=== PATIENT | female | born 1955 | race Caucasian/White ===

== ENCOUNTER 2018-10-14 12:20 | Inpatient (IN) | payer SELFPAY ==
[~2018-10-14] VITALS: Ht 152.4 cm; Wt 57.6 kg
[2018-10-14 12:41] LABS: BASOPHILS # (AUTO) 0.1 /CMM (0.0-0.2); BASOPHILS % (AUTO) 1.3 % (0.0-2.0); EOSINOPHILS % (AUTO) 1.3 % (0.0-6.0); HEMATOCRIT 44 % (33-45); HEMOGLOBIN 15.1 g/dL (11.5-14.8); LYMPHOCYTES # (AUTO) 1.6 /CMM (0.8-4.8); LYMPHOCYTES % (AUTO) 33.9 % (20.0-44.0); MEAN CORPUSCULAR HGB CONC 35 g/dl (31.0-36.0); MEAN CORPUSCULAR VOLUME 93 fL (82-100); MONOCYTES # (AUTO) 0.3 /CMM (0.1-1.30); MONOCYTES % (AUTO) 5.4 % (2.0-12.0); NEUTROPHILS # (AUTO) 2.7 /CMM (1.8-8.9); NEUTROPHILS % (AUTO) 58.1 % (43.0-81.0); PLATELET COUNT (AUTO) 192 /CMM (150-450); WHITE BLOOD COUNT (AUTO) 4.6 K/uL (4.3-11.0)
[2018-10-14 12:54] LABS: ALANINE AMINOTRANSFERASE 33 U/L (12-78); ALBUMIN 3.6 g/dL (3.4-5.0); ALKALINE PHOSPHATASE 135 U/L (46-116); ASPARTATE AMINOTRANSFERASE 21 U/L (15-37); BILIRUBIN,DIRECT 0.1 mg/dL (0.0-0.2); BILIRUBIN,TOTAL 0.6 mg/dL (0.2-1.0); CALCIUM, SERUM 9.6 mg/dL (8.5-10.1); CARBON DIOXIDE 32 mmol/L (21-32); CHLORIDE 99 mmol/L (98-107); SODIUM SERUM 136 mmol/L (136-145); TOTAL PROTEIN, SERUM 7.8 g/dL (6.4-8.2); UREA NITROGEN, BLOOD 13 mg/dL (7-18)
[2018-10-14 12:56] LABS: GLUCOSE 434 mg/dL (74-106)
[2018-10-14] MEDS ORDERED: IV NS 0.9% 1,000 ML BAG IV ONE (13:30)
[2018-10-14] MEDS ORDERED: ASPIRIN 325 MG TABLET PO ONE (13:30)
[2018-10-14] MEDS ORDERED: ASPIRIN 325 MG TABLET ONE (13:37)
[2018-10-14] MEDS ORDERED: INSULIN REGULAR, HUMAN 100 UNIT/ML 10 ML VIAL SQ ONE (14:30)
[2018-10-14 14:39] LABS: APPEARANCE,URINE Cloudy (CLEAR); BILIRUBIN,URINE Negative (NEGATIVE); BLOOD, URINE Trace-lysed Ery/uL (NEGATIVE); COLOR,URINE Yellow (YELLOW); KETONES,URINE Trace (NEGATIVE); LEUKOCYTE ESTERASE ,URINE Small (NEGATIVE); NITRITE, URINE Negative (NEGATIVE); PROTEIN,URINE 100 mg/dl (NEGATIVE); UGLUCOSE 500 MG/DL mg/dL (NEGATIVE); UROBILINOGEN,URINE 0.2 EU/dL (0.2)
[2018-10-14] MEDS ORDERED: INSULIN REGULAR, HUMAN 100 UNIT/ML 10 ML VIAL ONE (14:47)
[2018-10-14 14:53] LABS: BACTERIA,URINE Many /HPF (None Seen); RBC,URINE 0-2 /HPF (0-2); SQUAMOUS EPITHELIAL CELL,UR Moderate /HPF (None Seen)
[2018-10-14] MEDS ORDERED: DEXTROSE 50%-WATER 50 ML DISP.SYRIN IV PRN (15:00)
[2018-10-14 16:00] VITALS: BP 135/106
[2018-10-14 17:00] VITALS: BP 168/83
[2018-10-14] MEDS ORDERED: BLOOD SUGAR DIAGNOSTIC 1 EACH STRIP IN SCH ×2 (17:30)
[2018-10-14] MEDS ORDERED: METF-440 PO (17:39)
[2018-10-14] MEDS ORDERED: LOSA100T31 PO (17:39)
[2018-10-14] MEDS ORDERED: ASPI-1169 PO (17:39)
[2018-10-14] MEDS: BLOOD SUGAR DIAGNOSTIC 1 EACH STRIP IN SCH ×2 (17:55→21:16)
[2018-10-14] MEDS: INSULIN REGULAR, HUMAN 100 UNIT/ML 3 ML VIAL SQ PRN ×2 (17:58→21:17)
[2018-10-14] MEDS: hydrALAZINE HCL 25 MG TABLET PO PRN (18:00)
[2018-10-14 20:00] VITALS: BP 116/64
[2018-10-14] MEDS: ATORVASTATIN 40 MG TABLET PO SCH (21:08)
[2018-10-15] VITALS (7 sets, daily range): BP systolic 92–167; BP diastolic 40–91
[2018-10-15 07:53] LABS: BASOPHILS % (AUTO) 0.6 % (0.0-2.0); EOSINOPHILS % (AUTO) 1.5 % (0.0-6.0); HEMATOCRIT 38 % (33-45); HEMOGLOBIN 13.2 g/dL (11.5-14.8); LYMPHOCYTES # (AUTO) 2.4 /CMM (0.8-4.8); LYMPHOCYTES % (AUTO) 43.6 % (20.0-44.0); MEAN CORPUSCULAR HGB CONC 35 g/dl (31.0-36.0); MEAN CORPUSCULAR VOLUME 92 fL (82-100); MONOCYTES # (AUTO) 0.3 /CMM (0.1-1.30); MONOCYTES % (AUTO) 6.2 % (2.0-12.0); NEUTROPHILS # (AUTO) 2.7 /CMM (1.8-8.9); NEUTROPHILS % (AUTO) 48.1 % (43.0-81.0); PLATELET COUNT (AUTO) 160 /CMM (150-450); RED BLOOD CELL COUNT(AUTO) 4.14 MIL/uL (4.0-5.2); WHITE BLOOD COUNT (AUTO) 5.5 K/uL (4.3-11.0)
[2018-10-15 07:56] LABS: CALCIUM, SERUM 8.8 mg/dL (8.5-10.1); POTASSIUM 4.2 mmol/L (3.5-5.1)
[2018-10-15] MEDS: hydrALAZINE HCL 25 MG TABLET PO PRN (08:07)
[2018-10-15] MEDS: BLOOD SUGAR DIAGNOSTIC 1 EACH STRIP IN SCH ×4 (08:13→21:41)
[2018-10-15] MEDS ORDERED: ACETAMINOPHEN 325 MG TABLET PO PRN (09:00)
[2018-10-15] MEDS: ASPIRIN EC 81 MG TABLET.DR PO SCH (09:24)
[2018-10-15] MEDS: INSULIN REGULAR, HUMAN 100 UNIT/ML 3 ML VIAL SQ PRN ×4 (09:26→21:45)
[2018-10-15] MEDS: glipiZIDE 5 MG TABLET PO SCH ×2 (12:50→18:16)
[2018-10-15] MEDS: LOSARTAN POTASSIUM 50 MG TABLET PO SCH (15:45)
[2018-10-15] MEDS: FLUCONAZOLE IN NS 100 MG in PREMIX 1 EA IV SCH ×2 (15:50)
[2018-10-15] MEDS: METFORMIN 500 MG TABLET PO SCH (17:00)
[2018-10-15] MEDS: ATORVASTATIN 40 MG TABLET PO SCH (21:41)
[2018-10-16] VITALS: BP 178/89
[2018-10-16 04:00] VITALS: BP 138/73
[2018-10-16 05:30] LABS: BASOPHILS % (AUTO) 0.6 % (0.0-2.0); EOSINOPHILS % (AUTO) 1.5 % (0.0-6.0); HEMATOCRIT 34 % (33-45); HEMOGLOBIN 11.9 g/dL (11.5-14.8); LYMPHOCYTES # (AUTO) 2.4 /CMM (0.8-4.8); LYMPHOCYTES % (AUTO) 36.7 % (20.0-44.0); MEAN CORPUSCULAR HGB CONC 35 g/dl (31.0-36.0); MEAN CORPUSCULAR VOLUME 92 fL (82-100); MONOCYTES # (AUTO) 0.3 /CMM (0.1-1.30); MONOCYTES % (AUTO) 5.3 % (2.0-12.0); NEUTROPHILS # (AUTO) 3.6 /CMM (1.8-8.9); NEUTROPHILS % (AUTO) 55.9 % (43.0-81.0); PLATELET COUNT (AUTO) 150 /CMM (150-450); RED BLOOD CELL COUNT(AUTO) 3.71 MIL/uL (4.0-5.2); WHITE BLOOD COUNT (AUTO) 6.4 K/uL (4.3-11.0)
[2018-10-16 05:41] LABS: CALCIUM, SERUM 8.8 mg/dL (8.5-10.1); CREATININE 0.9 mg/dL (0.6-1.3); MAGNESIUM 1.8 mg/dL (1.8-2.4); PHOSPHORUS 3.6 mg/dL (2.5-4.9); POTASSIUM 3.8 mmol/L (3.5-5.1)
[2018-10-16] MEDS: BLOOD SUGAR DIAGNOSTIC 1 EACH STRIP IN SCH ×4 (07:37→21:40)
[2018-10-16] MEDS: glipiZIDE 5 MG TABLET PO SCH ×2 (07:38→16:15)
[2018-10-16 08:00] VITALS: BP 146/99
[2018-10-16] MEDS: LOSARTAN POTASSIUM 50 MG TABLET PO SCH (08:30)
[2018-10-16] MEDS: METFORMIN 500 MG TABLET PO SCH ×2 (08:30→16:15)
[2018-10-16] MEDS: ASPIRIN EC 81 MG TABLET.DR PO SCH (08:30)
[2018-10-16] MEDS: INSULIN REGULAR, HUMAN 100 UNIT/ML 3 ML VIAL SQ PRN ×4 (08:32→21:40)
[2018-10-16 12:00] VITALS: BP 132/68
[2018-10-16] MEDS: FLUCONAZOLE IN NS 100 MG in PREMIX 1 EA IV SCH ×2 (13:10)
[2018-10-16 16:00] VITALS: BP 136/74
[2018-10-16 20:00] VITALS: BP 142/72
[2018-10-16] MEDS: ATORVASTATIN 40 MG TABLET PO SCH (21:44)
[2018-10-17 04:00] VITALS: BP 141/76
[2018-10-17 08:00] VITALS: BP 165/91
[2018-10-17] MEDS: METFORMIN 500 MG TABLET PO SCH ×2 (08:50→17:21)
[2018-10-17] MEDS: glipiZIDE 5 MG TABLET PO SCH ×2 (08:50→15:39)
[2018-10-17] MEDS: ASPIRIN EC 81 MG TABLET.DR PO SCH (08:50)
[2018-10-17] MEDS: LOSARTAN POTASSIUM 50 MG TABLET PO SCH (08:51)
[2018-10-17] MEDS: INSULIN REGULAR, HUMAN 100 UNIT/ML 3 ML VIAL SQ PRN ×2 (08:53→12:42)
[2018-10-17] MEDS: BLOOD SUGAR DIAGNOSTIC 1 EACH STRIP IN SCH ×2 (08:58→12:42)
[2018-10-17] MEDS ORDERED: CLOP75TA15 PO (12:55)
[2018-10-17] MEDS ORDERED: CLOPIDOGREL BISULFATE 75 MG TABLET PO SCH (13:30)
[2018-10-17 15:51] VITALS: BP 124/72
== END 2018-10-17 17:57 | disposition home or self-care (01) | DRG 65 ==
LOC: ER 12:27 → TELE1 14:11 → MEDSG1 10-15 15:27 → TELE1 10-16 02:38 → MEDSG1 10-16 12:11
PROVIDERS: ADMIT Student in an Organized Health Care Education/Training Program; ATTEND Internal Medicine
DX: I63.9 Cerebral infarction, unspecified (principal); I50.32 Chronic diastolic (congestive) heart failure; F17.210 Nicotine dependence, cigarettes, uncomplicated; E11.65 Type 2 diabetes mellitus with hyperglycemia; L80 Vitiligo; R29.810 Facial weakness; F17.200 Nicotine dependence, unspecified, uncomplicated; Z86.73 Personal history of transient ischemic attack (TIA), and cerebral infarction without residual deficits; Z83.3 Family history of diabetes mellitus; E78.5 Hyperlipidemia, unspecified; I11.0 Hypertensive heart disease with heart failure; I67.2 Cerebral atherosclerosis
CPT/HCPCS: 36415; 36569; 70450-TC; 70496-TC; 70498-TC; 70551-TC; 71045-TC; 80048-TC; 80061-TC; 80076-TC; 80305; 81000-TC; 82945-TC; 82962-TC; 83735-TC; 83880; 84100-TC; 84443-TC; 84484-TC; 85025-TC; 85610-TC; 85652-TC; 85730-TC; 87040-TC; 87081-TC; 87086-TC; 92611-TC; 93307-TC; 93880-TC; A4216; G0378; J1450; J1815; J7030; J7050

== ENCOUNTER 2021-05-12 12:09 | Inpatient (IN) | payer MEDICAID, MEDICARE ==
[~2021-05-12] VITALS: Ht 152.4 cm; Wt 54.4 kg
[~2021-05-12 12:09] MED LIST: ASPI-1169 PO; CLOP75TA15 PO; LOSA100T31 PO; METF-440 PO
[2021-05-12 12:55] LABS: BASOPHILS % (AUTO) 0.4 % (0.0-2.0); HEMATOCRIT 34 % (33-45); HEMOGLOBIN 11.7 g/dL (11.5-14.8); LYMPHOCYTES % (AUTO) 11.5 % (20.0-44.0); MEAN CORPUSCULAR HGB CONC 34 g/dl (31.0-36.0); MEAN CORPUSCULAR VOLUME 91 fL (82-100); MONOCYTES # (AUTO) 0.5 K/uL (0.1-1.30); MONOCYTES % (AUTO) 5.4 % (2.0-12.0); NEUTROPHILS # (AUTO) 7.2 K/uL (1.8-8.9); NEUTROPHILS % (AUTO) 82.7 % (43.0-81.0); PLATELET COUNT (AUTO) 167 K/uL (150-450); RED BLOOD CELL COUNT(AUTO) 3.73 MIL/uL (4.0-5.2); WHITE BLOOD COUNT (AUTO) 8.7 K/uL (4.3-11.0)
--- NOTE | 2021-05-12 13:00 | NUR ---
MOVE SHEET SUBMITTED
[2021-05-12 13:14] LABS: CALCIUM, SERUM 9.4 mg/dL (8.5-10.1); CREATININE 1.2 mg/dL (0.6-1.3); POTASSIUM 4.3 mmol/L (3.5-5.1)
--- NOTE | 2021-05-12 13:15 | NUR ---
[facility] CALLED REROLLER HAND PAGED.
[2021-05-12] MEDS ORDERED: LEVE500T20 PO (13:22)
[2021-05-12] MEDS ORDERED: ACET325T53 PO (13:22)
[2021-05-12] MEDS ORDERED: ASPI-1420 PO (13:22)
[2021-05-12] MEDS ORDERED: INSU100V7 SQ (13:22)
--- NOTE | 2021-05-12 13:48 | NUR ---
SHARIFA PAGED. JUNG
[2021-05-12] MEDS ORDERED: ACETAMINOPHEN 325 MG TABLET PO PRN ×2 (14:00)
[2021-05-12] MEDS ORDERED: MAGNESIUM HYDROXIDE 30 ML UDC PO PRN (14:00)
[2021-05-12] MEDS ORDERED: ONDANSETRON HCL/PF 4 MG/2 ML VIAL IVP PRN (14:00)
[2021-05-12] MEDS ORDERED: Z GUARD REMEDY 2 OZ OINT TP PRN (14:00)
[2021-05-12] MEDS ORDERED: MAG HYDROX/AL HYDROX/SIMETH 30 ML UDC PO PRN (14:00)
[2021-05-12] MEDS ORDERED: DEXTROSE 50%-WATER 50 ML DISP.SYRIN IV PRN (14:00)
[2021-05-12] MEDS ORDERED: ZOLPIDEM TARTRATE 5 MG TABLET PO PRN (14:00)
[2021-05-12] MEDS ORDERED: MORPHINE SULFATE INJ 2 MG/ML DISP.SYRIN IV PRN (14:00)
--- NOTE | 2021-05-12 14:11 | NUR ---
room 310-2
--- NOTE | 2021-05-12 14:40 | NUR ---
covid antigen swab is taken
--- NOTE | 2021-05-12 15:25 | NUR ---
patient will transfer to the [address] room 310 bed 2, report given SOL Quezada, waiting covid antigen result.
--- NOTE | 2021-05-12 16:35 | NUR ---
Patient arrived via stretcher from ER at 16:34 pm. Patient AO X 4, able to make needs known, can follow simple commands, [place] Islander and Turkmen speaking. No apparent distress noted, breathing even and unlabored. Admitting hospitalist made aware of the patient's arrival. Patient admitting diagnosis femur fracture. Patient's vital signs within normal limits, no c/o pain or discomfort at this time, offered pain mediocation and she said not right now and nell will ask for it. Skin intact, warm to touch, no pallor or cyanosis noted, noted to have light yellow discoloration in the left hip area, no swelling, no open area, also have small sized scabs on her bilateral ankle area, also have dry scabs on left lower leg, photos taken and filed in the chart. Patient oriented with use of call lights, use of bed control, use of telephone and tv control, also introduces BUILDING CONSTRUCTION ESTIMATOR and RN assigned for today, verbalized understanding and gratitude. All belongings double checked with the ones written in the inventory list. All needs attended, kept clean and dry, call light left within reach, safety precautions in place, brakes locked, side rails up X 2, will endorse to next shift for continuity of care.
--- NOTE | 2021-05-12 17:09 | NUR ---
PETROL TANKER DRIVER/MED RECON PATIENT UNABLE TO PROVIDE COMPLETE HOME MEDICATION PROFILE. CALLED [facility] (DAUGHTER) PER PATIENT REQUEST. DAUGHTER WILL CALL TO PROVIDE MEDICATION LIST LATER.
[2021-05-12] MEDS ORDERED: FAMO20TA8 PO (17:17)
[2021-05-12] MEDS ORDERED: AMLO-212 PO (17:17)
[2021-05-12] MEDS ORDERED: ATOR20TA PO (17:17)
[2021-05-12] MEDS: BLOOD SUGAR DIAGNOSTIC 1 EACH STRIP VI SCH ×2 (17:33→21:40)
[2021-05-12] MEDS: INSULIN REGULAR, HUMAN 100 UNIT/ML 3 ML VIAL SQ PRN (17:33)
--- NOTE | 2021-05-12 19:00 | NUR ---
Received in bed alert and orientated X3 when asked if she had pain (maris) persian she stated No and waved her hand to indicate no Right and Left PPP angle feet warm TV turned on for her and call light within reach bed alarm on
--- NOTE | 2021-05-12 19:44 | NUR ---
RN CLOSING NOTES Patient lying in bed, AO X 4, able to make needs known, can follow commands, able to make needs known, respirations even and unlabored, no SOB, denies any pain or discomfort, no apparent distress noted. No hypo/hyperglycemia noted during shift. kept clean and dry, all needs attended, call light left within reach, safety precautions in place, brakes locked, side rails up X 2, will endorse to next shift for continuity of care.
[2021-05-12 20:00] VITALS: BP 153/63
[2021-05-12] MEDS: LEVETIRACETAM (250 MG) 250 MG TABLET PO SCH (20:21)
[2021-05-12] MEDS: *INSULIN REGULAR(HUMULIN R)HUM 100 UNIT/ML VIAL SQ PRN (21:53)
--- NOTE | 2021-05-13 05:38 | NUR ---
CLOSING NOTES: In bed arouses easily when name spoken midline left upper arm attemp to draw AM labs unsuccessfully, flushes easily lab made aware medicated with tylenol X1 for dicomfort denies pain until we turn and reposition her
[2021-05-13] MEDS: BLOOD SUGAR DIAGNOSTIC 1 EACH STRIP VI SCH ×4 (06:13→21:23)
[2021-05-13] MEDS: INSULIN REGULAR, HUMAN 100 UNIT/ML 3 ML VIAL SQ PRN ×3 (06:20→17:33)
[2021-05-13 07:12] LABS: BASOPHILS % (AUTO) 0.5 % (0.0-2.0); EOSINOPHILS % (AUTO) 0.2 % (0.0-6.0); HEMATOCRIT 33 % (33-45); HEMOGLOBIN 11.5 g/dL (11.5-14.8); LYMPHOCYTES # (AUTO) 1.4 K/uL (0.8-4.8); LYMPHOCYTES % (AUTO) 15.4 % (20.0-44.0); MEAN CORPUSCULAR HGB CONC 35 g/dl (31.0-36.0); MEAN CORPUSCULAR VOLUME 91 fL (82-100); MONOCYTES # (AUTO) 0.7 K/uL (0.1-1.30); MONOCYTES % (AUTO) 7.4 % (2.0-12.0); NEUTROPHILS # (AUTO) 7.2 K/uL (1.8-8.9); NEUTROPHILS % (AUTO) 76.5 % (43.0-81.0); PLATELET COUNT (AUTO) 154 K/uL (150-450); RED BLOOD CELL COUNT(AUTO) 3.63 MIL/uL (4.0-5.2); WHITE BLOOD COUNT (AUTO) 9.4 K/uL (4.3-11.0)
--- NOTE | 2021-05-13 07:31 | NUR ---
RN OPENING NOTES- PT IN BED ASLEEP, EASILY AWAKENED, ORIENTED TO PERSON PLACE, GERMAN SPEAKING THOUGH UNDERSTANDS [place], LEFT FEMUR FX. AWAITING ORTHO CONSULT, DENIES PAIN AT PRESENT. NO ACUTE DISTRESS. CALL LIGHT IN REACH VS STABLE. ASSIST AND MONITOR
[2021-05-13 07:32] LABS: CREATININE 1.5 mg/dL (0.6-1.3); MAGNESIUM 2.2 mg/dL (1.8-2.4); PHOSPHORUS 3.1 mg/dL (2.5-4.9); POTASSIUM 4.4 mmol/L (3.5-5.1)
[2021-05-13 08:00] VITALS: BP 142/67
[2021-05-13] MEDS: LEVETIRACETAM (250 MG) 250 MG TABLET PO SCH ×2 (08:42→21:18)
[2021-05-13] MEDS: LOSARTAN POTASSIUM 50 MG TABLET PO SCH (08:43)
[2021-05-13 16:00] VITALS: BP 148/71
--- NOTE | 2021-05-13 18:30 | NUR ---
RN NOTE- BUN 38. NS AT 100/HR ORDERED THROUGH MIDLINE NILA.
--- NOTE | 2021-05-13 18:31 | NUR ---
RN CLOSING NOTE- ORTHO CONSULT TO BE COMPLETED TOMORROW. CARDIAC CONSULT AND ECHO COMPLETED TODAY. PT CLEARED FOR ORTHO SURGERY. VS STABLE, PO INTAKE GOOD, ALERT ORIENTED. SIDE RAILS UP, CALL LIGHT IN REACH BED LOCKED. ASSIST AND MONITOR
--- NOTE | 2021-05-13 19:00 | NUR ---
Received in bed alertAND ORIENTATED SPEAKING GREEK C/O PAIN LEFT HIP sp FALL @ hOME SCHEDULED FOR SURG TOMORROW
[2021-05-13 20:00] VITALS: BP 148/65
[2021-05-13 20:07] VITALS: BP 148/65
[2021-05-13] MEDS: ATORVASTATIN 10 MG TABLET PO SCH (21:18)
[2021-05-13] MEDS: *INSULIN REGULAR(HUMULIN R)HUM 100 UNIT/ML VIAL SQ PRN (21:30)
--- NOTE | 2021-05-13 23:28 | NUR ---
npo STATUS STARTED FOR SCHEDULED am 11 SURGERY
[2021-05-14 05:05] LABS: BILIRUBIN,URINE NEGATIVE (NEGATIVE); COLOR,URINE YELLOW (YELLOW); LEUKOCYTE ESTERASE ,URINE SMALL (NEGATIVE); NITRITE, URINE NEGATIVE (NEGATIVE); PH,URINE 5.5 (5.0-8.0); PROTEIN,URINE 30 mg/dl (NEGATIVE); UGLUCOSE >=1000 mg/dL (NEGATIVE); UROBILINOGEN,URINE 0.2 EU/dL (0.2)
[2021-05-14 05:16] LABS: CREATININE, URINE 59.6 MG/DL (30.0-125.0)
[2021-05-14 05:20] LABS: BACTERIA,URINE Many /HPF (None Seen); SQUAMOUS EPITHELIAL CELL,UR Few /HPF (None Seen); WBC,URINE 21-50 /HPF (0-3); YEAST,URINE Few /HPF (None Seen)
[2021-05-14] MEDS: IV NS 0.9% 1,000 ML IV PRN (05:48)
--- NOTE | 2021-05-14 05:57 | NUR ---
NPO FOR SCHEDULED 11 AM SURGERY BY MD CUETO SURGICAL CHECK LIST STARTED EKG ORDERED ND DONE ALREADY UA ORDERED AND RESULT PENDING CXR ORDERED FOR EARLY THIS AM PATIENT IS AWAKE AND SMILING MD KIRBY THE ORTHO SURGEON MY UNDERSTANDING WILL BE IN THIS am TO EXPLAIN TO THE PATIENT WHAT IS TO BE DONE CONSENT NO SIGNED YET
[2021-05-14 06:35] LABS: BASOPHILS % (AUTO) 0.3 % (0.0-2.0); HEMATOCRIT 31 % (33-45); HEMOGLOBIN 10.9 g/dL (11.5-14.8); MEAN CORPUSCULAR HGB CONC 35 g/dl (31.0-36.0); MEAN CORPUSCULAR VOLUME 91 fL (82-100); MONOCYTES % (AUTO) 8.3 % (2.0-12.0); NEUTROPHILS % (AUTO) 74.4 % (43.0-81.0); PLATELET COUNT (AUTO) 146 K/uL (150-450); WHITE BLOOD COUNT (AUTO) 6.9 K/uL (4.3-11.0)
[2021-05-14 06:36] LABS: LYMPHOCYTES # (AUTO) 1.2 K/uL (0.8-4.8); MONOCYTES # (AUTO) 0.6 K/uL (0.1-1.30); NEUTROPHILS # (AUTO) 5.1 K/uL (1.8-8.9)
[2021-05-14 06:49] LABS: CALCIUM, SERUM 8.6 mg/dL (8.5-10.1); POTASSIUM 4.1 mmol/L (3.5-5.1)
[2021-05-14] MEDS: BLOOD SUGAR DIAGNOSTIC 1 EACH STRIP VI SCH ×5 (06:53→22:30)
--- NOTE | 2021-05-14 07:26 | NUR ---
RN OPENING NOTE- PT IN BED, AWAKE AND ORIENTED TO PERSON PLACE, SLOVAK SPEAKING THOUGH UNDERSTANDS GREEK, LEFT FEMUR FX. AWAITING SURGICAL PROCEDURE THIS MORNING, DENIES PAIN AT PRESENT. CXR BEING DONE NOW, ALL PREPARATIONS COMPLETED, CONSENTS DONE, NO ACUTE DISTRESS. CALL LIGHT IN REACH VS STABLE. ASSIST AND MONITOR
[2021-05-14] MEDS: LOSARTAN POTASSIUM 50 MG TABLET PO SCH (08:38)
[2021-05-14] MEDS: AMLODIPINE BESYLATE 5 MG TABLET PO SCH (08:39)
[2021-05-14] MEDS: LEVETIRACETAM (250 MG) 250 MG TABLET PO SCH ×2 (08:39→21:22)
[2021-05-14] MEDS: FAMOTIDINE (20 MG) 20 MG TABLET PO SCH (08:39)
[2021-05-14] MEDS ORDERED: ANESTHESIA TRAY IN PYXIS 1 EA TRAY MC ONE (09:17)
[2021-05-14] MEDS ORDERED: BUPIVACAINE 0.5 % PF 150 MG/30 ML VIAL ONE (09:18)
[2021-05-14] MEDS ORDERED: HYDROMORPHONE INJ 2 MG/ML DISP.SYRIN ONE (10:50)
[2021-05-14] MEDS ORDERED: CEFAZOLIN 1 GM VIAL IM SCH (11:00)
[2021-05-14] MEDS ORDERED: LEVOFLOXACIN 500 MG /D5W 100ML 100 ML IV ONE (11:16)
[2021-05-14] MEDS ORDERED: ROCURONIUM BROMIDE 50 MG/5 ML ONE (11:17)
[2021-05-14] MEDS ORDERED: BUPIVACAINE 0.25% 75 MG/30 ML VIAL ONE (11:51)
[2021-05-14] MEDS ORDERED: LIDOCAINE 0.5%-EPI 1:200,000 50 ML VIAL ONE (11:54)
[2021-05-14] MEDS ORDERED: LIDOCAINE 1%-EPI 1:100,000 20 ML VIAL ONE (11:58)
[2021-05-14] MEDS ORDERED: TRANEXAMIC ACID 1,000 MG in IV NS 0.9% 100 ML IV ONE (12:00)
[2021-05-14] MEDS ORDERED: DESFLURANE 240 ML BOTTLE IH ONE (12:31)
[2021-05-14] MEDS ORDERED: HYDROCODONE/APAP 5/325MG TABLET PO PRN (14:30)
--- NOTE | 2021-05-14 15:47 | NUR ---
RN NOTE PATIENT BACK FROM SURGERY. ORDERS RECEIVED FOR DAILY CBC/BMP TO 05/17, AND TO START INCENTIVE SPIROMETRY.
--- NOTE | 2021-05-14 15:50 | NUR ---
RN NOTE- PT RETURNED FROM SURGERY LEFT HIP RODDING. TWO DRESSING UPPER AND LOWER ARE PRESENT AND SECURE, ICE PACKS IN PLACE. PT SOMNOLENT THOUGH EASILY AWAKENED. BP-156/61, HR- 91, RR- 18, T- 98.0, SATS 100% . INCENTIVE SPIROMETER BROUGHT TO BEDSIDE AND EXPLAINED AND DEMONSTRATED. WATER BROUGHT. ASSIST AND MONITOR
[2021-05-14] MEDS: INSULIN REGULAR, HUMAN 100 UNIT/ML 3 ML VIAL SQ PRN (17:30)
--- NOTE | 2021-05-14 17:45 | NUR ---
RN NOTE- PT BS 415. PT DOES NOT WANT TO EAT DINNER. DR MINAYA NOTIFIED. SSI COVERAGE ORDERED.
--- NOTE | 2021-05-14 18:47 | NUR ---
RN NOTE- PT IN BED, AWAKE AND ORIENTED TO PERSON PLACE, NAURUAN SPEAKING THOUGH UNDERSTANDS [place] ISLANDER, LEFT FEMUR FX. S/P RODDING DENIES PAIN AT PRESENT. INCENTIVE SPIROMETER IN USE. , NO ACUTE DISTRESS. CALL LIGHT IN REACH VS STABLE. ASSIST AND MONITOR
[2021-05-14] MEDS: CEFAZOLIN 2 GM in IV D5W 100 ML IV SCH (18:55)
--- NOTE | 2021-05-14 19:27 | NUR ---
RN OPENING NOTES: RECEIVED PATIENT AWAKE IN BED, BED IN LOW POSITION, CALL LIGHTS WITHIN REACH, NO COMPLAIN OF PAIN AND DISCOMFORT AT THIS TIME, PATIENT CAME FORM SURGERY, ON RA NO SOB WAS OBSERVED, PATIENT IS A/0X3 DJIBOUTIAN SPEAKING WITH [place] MIDLINE WITH ONGOING NS@75ML PER HOUR INFUSING WELL, PATIENT KEPT COMFORTABLE, REMIND TO USE THE CALL LIGHTS WHEN NEEDED ASSISTANCE, WILL CONTINUE TO MONITOR.
[2021-05-14 20:00] VITALS: BP 145/75
[2021-05-14] MEDS: ATORVASTATIN 10 MG TABLET PO SCH (21:22)
[2021-05-14] MEDS: *INSULIN REGULAR(HUMULIN R)HUM 100 UNIT/ML VIAL SQ PRN (22:19)
[2021-05-15] MEDS ORDERED: INSULIN REGULAR, HUMAN 100 UNIT/ML 3 ML VIAL SQ ONE (00:40)
[2021-05-15] MEDS ORDERED: IV NS 0.9% 1,000 ML IV ONE (00:40)
[2021-05-15] MEDS: CEFAZOLIN 2 GM in IV D5W 100 ML IV SCH (03:11)
[2021-05-15] MEDS: IV NS 0.9% 1,000 ML IV PRN (05:58)
[2021-05-15 06:02] LABS: BASOPHILS % (AUTO) 0.1 % (0.0-2.0); HEMATOCRIT 25 % (33-45); HEMOGLOBIN 8.5 g/dL (11.5-14.8); LYMPHOCYTES # (AUTO) 0.6 K/uL (0.8-4.8); LYMPHOCYTES % (AUTO) 10.7 % (20.0-44.0); MEAN CORPUSCULAR HGB CONC 35 g/dl (31.0-36.0); MEAN CORPUSCULAR VOLUME 93 fL (82-100); MONOCYTES # (AUTO) 0.7 K/uL (0.1-1.30); MONOCYTES % (AUTO) 12.1 % (2.0-12.0); NEUTROPHILS # (AUTO) 4.6 K/uL (1.8-8.9); NEUTROPHILS % (AUTO) 77.1 % (43.0-81.0); PLATELET COUNT (AUTO) 139 K/uL (150-450); RED BLOOD CELL COUNT(AUTO) 2.64 MIL/uL (4.0-5.2)
[2021-05-15 06:17] LABS: CALCIUM, SERUM 8.2 mg/dL (8.5-10.1); CREATININE 1.2 mg/dL (0.6-1.3); POTASSIUM 4.3 mmol/L (3.5-5.1)
--- NOTE | 2021-05-15 06:22 | NUR ---
RN CLOSING NOTES: PATIENT SLEEP IN BED COMFORTABLY, BED IN LOW POSITION, CALL LIGHTS WITHIN REACH, NO COMPLAIN OF PAIN AND DISCOMFORT AT THIS TIME, ON BRED REST, BED [place] ASSIST, PATIENT IS S/P SURGERY LEFT HIP NAILING, WITH IV LINE NILA MIDLINE WITH ONGOING IV OF 0.9 NS@75ML/HR INFUSING WELL, PATIENTS A/OX 3 HUNGARIAN SPEAKING AND ABLE TO MAKE NEEDS KNOWN, PATIENT KEPT CLEAN AND DRY, ALL NEEDS MET, ENDORSE TO INCOMING SHIFT.
[2021-05-15] MEDS: BLOOD SUGAR DIAGNOSTIC 1 EACH STRIP VI SCH ×4 (07:47→21:54)
--- NOTE | 2021-05-15 07:48 | NUR ---
MS RN OPENING NOTES RECEIVED PATIENT IN BED, AWAKE, A/O X3. PATIENT ON ROOM AIR; BREATHING EVEN AND UNLABORED AT THIS TIME, NO SOB NOTED. NO COMPLAINS OF PAIN AT THIS MOMENT. NILA MIDLINE PRESENT AND INTACT RUNNING NS @ 75 MLS/HR. SAFETY PRECAUTIONS IN PLACE; BED IN LOW POSITION AND LOCKED, RAILS UP X2, CALL LIGHT WITHIN REACH. WILL CONTINUE TO MONITOR PATIENT.
[2021-05-15 08:00] VITALS: BP 155/79
[2021-05-15] MEDS: AMLODIPINE BESYLATE 5 MG TABLET PO SCH (08:33)
[2021-05-15] MEDS: LEVETIRACETAM (250 MG) 250 MG TABLET PO SCH ×2 (08:33→21:37)
[2021-05-15] MEDS: LEVOFLOXACIN (250MG) 250 MG TABLET PO SCH (08:33)
[2021-05-15] MEDS: FAMOTIDINE (20 MG) 20 MG TABLET PO SCH (08:33)
[2021-05-15] MEDS: LOSARTAN POTASSIUM 50 MG TABLET PO SCH (08:33)
[2021-05-15] MEDS: ENOXAPARIN SODIUM 40 MG/0.4 ML DISP.SYRIN SQ SCH (08:35)
[2021-05-15] MEDS: INSULIN REGULAR, HUMAN 100 UNIT/ML 3 ML VIAL SQ PRN ×2 (08:42→11:46)
[2021-05-15] MEDS: MULTIVIT W/MINERALS 1 TAB TABLET PO SCH (11:42)
[2021-05-15] MEDS: ZINC SULFATE 220 MG CAPSULE PO SCH (11:42)
[2021-05-15] MEDS: CALCIUM CARB 600MG /VIT D 1 EACH TABLET PO SCH ×2 (11:42→16:22)
[2021-05-15] MEDS: GLUCERNA SHAKE 237 ML CAN PO SCH ×2 (11:47→16:21)
[2021-05-15 16:00] VITALS: BP 147/76
[2021-05-15] MEDS: ASCORBIC ACID 500 MG TABLET PO SCH (16:22)
--- NOTE | 2021-05-15 18:33 | NUR ---
MS RN CLOSING NOTES PATIENT REMAINS IN BED, AWAKE, A/O X3. PATIENT ON ROOM AIR; BREATHING EVEN AND UNLABORED, NO SOB DURING SHIFT. NO COMPLAINS OF PAIN. NILA MIDLINE PRESENT AND INTACT RUNNING NS @ 75 MLS/HR. ALL NEEDS ATTENDED DURING THE DAY. SAFETY PRECAUTIONS IN PLACE; BED IN LOW POSITION AND LOCKED, RAILS UP X2, CALL LIGHT WITHIN REACH. WILL ENDORSE TO TAX ATTORNEY NURSE FOR ROSANNA.
--- NOTE | 2021-05-15 19:35 | NUR ---
RN NOTES PATIENT REMAINS IN BED, AWAKE, A/O X3. PATIENT ON ROOM AIR; BREATHING EVEN AND UNLABORED, NO SOB DURING SHIFT. NO COMPLAINS OF PAIN. NILA MIDLINE PRESENT AND INTACT RUNNING NS @ 75 MLS/HR. ALL NEEDS ATTENDED DURING THE DAY. SAFETY PRECAUTIONS IN PLACE; BED IN LOW POSITION AND LOCKED, RAILS UP X2, CALL LIGHT WITHIN REACH. WILL CONTINUE TO MONITOR.
[2021-05-15 20:00] VITALS: BP 158/72
[2021-05-15 21:34] LABS: HEMOGLOBIN 8.3 g/dL (11.5-14.8)
[2021-05-15] MEDS: ATORVASTATIN 10 MG TABLET PO SCH (21:37)
[2021-05-15] MEDS: *INSULIN REGULAR(HUMULIN R)HUM 100 UNIT/ML VIAL SQ PRN (21:57)
[2021-05-16] MEDS: BLOOD SUGAR DIAGNOSTIC 1 EACH STRIP VI SCH ×5 (06:33→22:22)
[2021-05-16] MEDS: INSULIN REGULAR, HUMAN 100 UNIT/ML 3 ML VIAL SQ PRN ×2 (06:35→17:19)
--- NOTE | 2021-05-16 06:48 | NUR ---
RN NOTES PATIENT REMAINS IN BED, AWAKE, A/O X3. PATIENT ON ROOM AIR; BREATHING EVEN AND UNLABORED, NO SOB DURING SHIFT. NO COMPLAINS OF PAIN. NILA MIDLINE PRESENT AND INTACT RUNNING NS @ 75 MLS/HR. ALL NEEDS ATTENDED DURING THE SHIFT. SAFETY PRECAUTIONS IN PLACE; BED IN LOW POSITION AND LOCKED, RAILS UP X2, CALL LIGHT WITHIN REACH. WILL ENDORSE CARE.
[2021-05-16 07:15] LABS: BASOPHILS % (AUTO) 0.3 % (0.0-2.0); EOSINOPHILS % (AUTO) 0.2 % (0.0-6.0); HEMATOCRIT 26 % (33-45); LYMPHOCYTES # (AUTO) 1.5 K/uL (0.8-4.8); LYMPHOCYTES % (AUTO) 25.3 % (20.0-44.0); MEAN CORPUSCULAR HGB CONC 35 g/dl (31.0-36.0); MEAN CORPUSCULAR VOLUME 92 fL (82-100); MONOCYTES # (AUTO) 0.6 K/uL (0.1-1.30); MONOCYTES % (AUTO) 10.4 % (2.0-12.0); NEUTROPHILS # (AUTO) 3.9 K/uL (1.8-8.9); NEUTROPHILS % (AUTO) 63.8 % (43.0-81.0); PLATELET COUNT (AUTO) 164 K/uL (150-450); WHITE BLOOD COUNT (AUTO) 6.1 K/uL (4.3-11.0)
[2021-05-16 07:46] LABS: CALCIUM, SERUM 8.8 mg/dL (8.5-10.1); CREATININE 0.9 mg/dL (0.6-1.3); PHOSPHORUS 1.8 mg/dL (2.5-4.9)
--- NOTE | 2021-05-16 07:50 | NUR ---
MS/RN OPENING NOTES RECEIVED PATIENT IN BED, AWAKE, A/O X3. PATIENT ON ROOM AIR; BREATHING EVEN AND UNLABORED, NO SOB/DISTRESS OR PAIN NOTED AT THIS TIME. NILA MIDLINE INTACT WITH A RUNNING NS @ 75 MLS/HR. SAFETY PRECAUTIONS IN PLACE; BED IN LOWEST LOCKED POSITION, SIDE RAILS UP X2, CALL LIGHT WITHIN REACH. WILL CONTINUE TO MONITOR.
[2021-05-16] MEDS: GLUCERNA SHAKE 237 ML CAN PO SCH ×3 (08:50→16:21)
[2021-05-16] MEDS: LOSARTAN POTASSIUM 50 MG TABLET PO SCH (09:28)
[2021-05-16] MEDS: ASCORBIC ACID 500 MG TABLET PO SCH ×2 (09:28→16:21)
[2021-05-16] MEDS: ZINC SULFATE 220 MG CAPSULE PO SCH (09:28)
[2021-05-16] MEDS: FAMOTIDINE (20 MG) 20 MG TABLET PO SCH (09:28)
[2021-05-16] MEDS: CALCIUM CARB 600MG /VIT D 1 EACH TABLET PO SCH ×2 (09:28→16:21)
[2021-05-16] MEDS: MULTIVIT W/MINERALS 1 TAB TABLET PO SCH (09:29)
[2021-05-16] MEDS: LEVOFLOXACIN (250MG) 250 MG TABLET PO SCH (09:29)
[2021-05-16] MEDS: AMLODIPINE BESYLATE 5 MG TABLET PO SCH (09:29)
[2021-05-16] MEDS: ENOXAPARIN SODIUM 40 MG/0.4 ML DISP.SYRIN SQ SCH (09:37)
[2021-05-16] MEDS: LEVETIRACETAM (250 MG) 250 MG TABLET PO SCH ×2 (09:43→21:18)
[2021-05-16] MEDS ORDERED: K PHOS NEUTRAL 250 MG TABLET PO ONE (11:00)
[2021-05-16] MEDS: *INSULIN REGULAR(HUMULIN R)HUM 100 UNIT/ML VIAL SQ PRN ×2 (12:03→22:22)
--- NOTE | 2021-05-16 18:58 | NUR ---
MS/RN CLOSING NOTES PATIENT IN BED, AWAKE, A/O X3. PATIENT ON ROOM AIR; BREATHING EVEN AND UNLABORED, NO SOB/DISTRESS OR PAIN NOTED AT THIS TIME. NILA MIDLINE INTACT WITH A RUNNING NS @ 75 MLS/HR. SAFETY PRECAUTIONS IN PLACE; BED IN LOWEST LOCKED POSITION, SIDE RAILS UP X2, CALL LIGHT WITHIN REACH. ALL NEEDS MET, KEPT PATIENT COMFORTABLE. WILL ENDORSE TO THE NEXT SHIFT FOR ROSANNA.
--- NOTE | 2021-05-16 19:00 | NUR ---
MS RN OPENING NOTE RECEIVED PT IN BED, RESTING A/O X3, PT STABLE ON ROOM AIR. NO S/S OF RESPIRATORY DISTRESS. NO C/O PAIN AT THIS TIME. IV ACCESS IN LEFT UPPER ARM MIDLINE. NS @75ML/HR IV IS INTACT, PATENT, AND FLUSHING WELL. SAFETY MEASURES MAINTAINED AT ALL TIMES. BED IN LOWEST LOCKED POSITION, HOB ELEVATED, SIDE RAILS UP X2. CALL LIGHT AND TABLE WITHIN REACH. WILL CONTINUE WITH PLAN OF CARE.
[2021-05-16 20:26] VITALS: BP 149/67
[2021-05-16] MEDS: ATORVASTATIN 10 MG TABLET PO SCH (21:18)
--- NOTE | 2021-05-16 22:22 | NUR ---
BS 344, 4 UNITS OF INSULIN GIVEN
[2021-05-17] MEDS: IV NS 0.9% 1,000 ML IV PRN (05:34)
--- NOTE | 2021-05-17 06:30 | NUR ---
MS RN CLOSING NOTE PT AWAKE AND RESTING IN BED, STABLE ON ROOM AIR. PT REMAINED STABLE THROUGHOUT SHIFT. ALL NEEDS, MEDICATIONS, AND CARE ADMINISTERED ANTICIPATED PER ORDER. SAFETY PRECAUTIONS IN PLACE AND MAINTAINED AT ALL TIMES. BED IN LOWEST, LOCKED POSITION, HOB ELEVATED, SIDE RAILS UP X2. CALL LIGHT AND TABLE WITHIN REACH. WILL ENDORSE TO AM SHIFT NURSE FOR ROSANNA.
[2021-05-17 06:47] LABS: BASOPHILS % (AUTO) 0.3 % (0.0-2.0); EOSINOPHILS % (AUTO) 0.7 % (0.0-6.0); HEMATOCRIT 21 % (33-45); HEMOGLOBIN 7.6 g/dL (11.5-14.8); LYMPHOCYTES # (AUTO) 1.5 K/uL (0.8-4.8); LYMPHOCYTES % (AUTO) 34.9 % (20.0-44.0); MEAN CORPUSCULAR HGB CONC 36 g/dl (31.0-36.0); MEAN CORPUSCULAR VOLUME 92 fL (82-100); MONOCYTES # (AUTO) 0.5 K/uL (0.1-1.30); MONOCYTES % (AUTO) 11.6 % (2.0-12.0); NEUTROPHILS # (AUTO) 2.3 K/uL (1.8-8.9); NEUTROPHILS % (AUTO) 52.5 % (43.0-81.0); PLATELET COUNT (AUTO) 144 K/uL (150-450); RED BLOOD CELL COUNT(AUTO) 2.34 MIL/uL (4.0-5.2); WHITE BLOOD COUNT (AUTO) 4.4 K/uL (4.3-11.0)
[2021-05-17 07:08] LABS: CALCIUM, SERUM 7.8 mg/dL (8.5-10.1); CREATININE 0.8 mg/dL (0.6-1.3); POTASSIUM 3.9 mmol/L (3.5-5.1)
--- NOTE | 2021-05-17 07:39 | NUR ---
RN OPENING NOTE RECEIVED PATIENT ASLEEP IN BED, EASY TO AROUSE. ALERT AND ORIENTED X 3, JAPANESE SPEAKING. NO SOB. NO S/S OF DISTRESS NOTED. PT TOLERATING WELL ON ROOM AIR. IV ACCESS NILA#18 MIDLINE PATENT, INTACT AND FLUSHING WELL. SAFETY MEASURES IN PLACE: BED LOCKED IN LOW POSITION AND SIDE RAILS UP X 2. CALL LIGHT IS WITHIN REACH. WILL CONTINUE TO MONITOR THROUGHOUT SHIFT.
[2021-05-17] MEDS: GLUCERNA SHAKE 237 ML CAN PO SCH ×2 (07:53→11:20)
[2021-05-17 08:17] VITALS: BP 139/54
[2021-05-17] MEDS: ENOXAPARIN SODIUM 40 MG/0.4 ML DISP.SYRIN SQ SCH (08:23)
[2021-05-17] MEDS: LEVOFLOXACIN (250MG) 250 MG TABLET PO SCH (08:43)
[2021-05-17] MEDS: LEVETIRACETAM (250 MG) 250 MG TABLET PO SCH (08:43)
[2021-05-17] MEDS: CALCIUM CARB 600MG /VIT D 1 EACH TABLET PO SCH (08:43)
[2021-05-17] MEDS: FAMOTIDINE (20 MG) 20 MG TABLET PO SCH (08:44)
[2021-05-17] MEDS: LOSARTAN POTASSIUM 50 MG TABLET PO SCH (08:44)
[2021-05-17] MEDS: ZINC SULFATE 220 MG CAPSULE PO SCH (08:44)
[2021-05-17] MEDS: AMLODIPINE BESYLATE 5 MG TABLET PO SCH (08:44)
[2021-05-17] MEDS: ASCORBIC ACID 500 MG TABLET PO SCH (08:44)
[2021-05-17] MEDS: MULTIVIT W/MINERALS 1 TAB TABLET PO SCH (08:44)
[2021-05-17] MEDS: INSULIN REGULAR, HUMAN 100 UNIT/ML 3 ML VIAL SQ PRN (11:19)
[2021-05-17] MEDS: BLOOD SUGAR DIAGNOSTIC 1 EACH STRIP VI SCH (11:21)
--- NOTE | 2021-05-17 15:50 | NUR ---
MS FINANCIAL SALES PROFESSIONAL NOTE RECEIVED DISCHARGE ORDER. PATIENT WAS PICKED UP BY AMBULANCE AT THIS TIME. VITAL SIGNS STABLE. ALL DISCHARGE ORDERS REVIEWED WITH PATIENT AND SIGNED BY PATIENT; ALL QUESTIONS ANSWERED. ALL BELONGINGS RETURNED TO PATIENT;PT SIGNED BELONGINGS FORM. IV ACCESS AND ID BAND REMOVED. OBSERVED PATIENT EXIT UNIT ACCOMPANIED BY 2 EMT. REPORT AT [facility] GIVEN TO SOL WHITEHEAD.
[2021-05-17 16:12] VITALS: BP 119/80
== END 2021-05-17 16:15 | DRG 480 ==
LOC: ER 12:17 → MED 14:12
PROVIDERS: ADMIT Internal Medicine; ATTEND Internal Medicine
PROC: 05HC33Z Insertion of Infusion Device into Left Basilic Vein, Percutaneous Approach (ICD-10-PCS; 2021-05-12)
PROC: 0QS706Z Reposition Left Upper Femur with Intramedullary Internal Fixation Device, Open Approach (ICD-10-PCS; principal; 2021-05-14)
DX: S72.142A Displaced intertrochanteric fracture of left femur, initial encounter for closed fracture (principal); N17.0 Acute kidney failure with tubular necrosis; D62 Acute posthemorrhagic anemia; W18.30XA Fall on same level, unspecified, initial encounter; Y92.009 Unspecified place in unspecified non-institutional (private) residence as the place of occurrence of the external cause; E11.9 Type 2 diabetes mellitus without complications; Z79.4 Long term (current) use of insulin; I10 Essential (primary) hypertension; Z20.822 Contact with and (suspected) exposure to COVID-19; G40.909 Epilepsy, unspecified, not intractable, without status epilepticus; Z79.82 Long term (current) use of aspirin; Z79.899 Other long term (current) drug therapy; E78.5 Hyperlipidemia, unspecified; F17.200 Nicotine dependence, unspecified, uncomplicated; S72.22XA Displaced subtrochanteric fracture of left femur, initial encounter for closed fracture; Z83.3 Family history of diabetes mellitus
CPT/HCPCS: 36410; 36415; 71045-TC; 73020; 73502; 73552; 80048-TC; 81001; 82550-TC; 82570-TC; 82962-TC; 83735-TC; 84100-TC; 84300-TC; 85025-TC; 85027-TC; 85610-TC; 85730-TC; 86850-TC; 87081-TC; 87086-TC; 93307-TC; 97110-TC; 97112-TC; 97530-TC; A4217; A6209; A6253; C1713; G0378; J0690; J1100; J1170; J1650; J1815; J1885; J1956; J2270; J2405; J2704; J3490; J7030; J7060

== ENCOUNTER 2021-06-10 10:24 | Inpatient (IN) | payer MEDICARE ==
[~2021-06-10] VITALS: Ht 162.6 cm; Wt 54.6 kg
[~2021-06-10 10:24] MED LIST changes: +ACET325T53 PO; +AMLO-212 PO; -ASPI-1169 PO; +ASPI-1420 PO; +ATOR20TA PO; -CLOP75TA15 PO; +FAMO20TA8 PO; +INSU100V7 SQ; +LEVE500T20 PO; -METF-440 PO
--- NOTE | 2021-06-10 10:38 | NUR ---
BIB RA88 FROM HOME C/O GENERALIZED WEAKNESS X 4 DAYS. DENIES NAUSEA, FEVER, CHILLS. HX OF STROKE. A&OX4. BREATHING EVEN AND UNLABORED. SKIN IS WARM AND DRY. LEFT SIDED FACIAL DROOP. UNABLE TO LIFT LEFT ARM. STRENGTH 2/5 IN LEFT HAND. UNABLE TO MOVE L LEG AGAINST GRAVITY. ATTACHED TO MONITOR.
--- NOTE | 2021-06-10 11:10 | NUR ---
blood sample obtained and sent to lab
[2021-06-10 11:20] LABS: BASOPHILS # (AUTO) 0.1 K/uL (0.0-0.2); BASOPHILS % (AUTO) 1.1 % (0.0-2.0); EOSINOPHILS % (AUTO) 0.7 % (0.0-6.0); HEMATOCRIT 34 % (33-45); HEMOGLOBIN 11.6 g/dL (11.5-14.8); LYMPHOCYTES # (AUTO) 1.9 K/uL (0.8-4.8); LYMPHOCYTES % (AUTO) 33.2 % (20.0-44.0); MEAN CORPUSCULAR HGB CONC 34 g/dl (31.0-36.0); MEAN CORPUSCULAR VOLUME 97 fL (82-100); MONOCYTES # (AUTO) 0.4 K/uL (0.1-1.30); MONOCYTES % (AUTO) 7.4 % (2.0-12.0); NEUTROPHILS # (AUTO) 3.3 K/uL (1.8-8.9); NEUTROPHILS % (AUTO) 57.6 % (43.0-81.0); PLATELET COUNT (AUTO) 293 K/uL (150-450); RED BLOOD CELL COUNT(AUTO) 3.52 MIL/uL (4.0-5.2); WHITE BLOOD COUNT (AUTO) 5.8 K/uL (4.3-11.0)
[2021-06-10 11:36] LABS: ALANINE AMINOTRANSFERASE 16 U/L (12-78); ALBUMIN 3.2 g/dL (3.4-5.0); ALKALINE PHOSPHATASE 136 U/L (46-116); ASPARTATE AMINOTRANSFERASE 17 U/L (15-37); BILIRUBIN,DIRECT 0.2 mg/dL (0.0-0.2); BILIRUBIN,TOTAL 0.6 mg/dL (0.2-1.0); CALCIUM, SERUM 9.5 mg/dL (8.5-10.1); CARBON DIOXIDE 29 mmol/L (21-32); CHLORIDE 103 mmol/L (98-107); CREATININE 0.8 mg/dL (0.6-1.3); GLUCOSE 188 mg/dL (74-106); POTASSIUM 3.9 mmol/L (3.5-5.1); SODIUM SERUM 139 mmol/L (136-145); TOTAL PROTEIN, SERUM 8.1 g/dL (6.4-8.2); UREA NITROGEN, BLOOD 14 mg/dL (7-18)
--- NOTE | 2021-06-10 11:50 | NUR ---
URINE COLLECTED AND SENT TO LAB. ADLS DONE. ALL NEEDS MET. SAFET PRECAUTIONS IN PLACE
--- NOTE | 2021-06-10 12:11 | NUR ---
CALLED [phone] LEFT MSG FOR DAUGHTER.
[2021-06-10 12:15] LABS: BILIRUBIN,URINE NEGATIVE (NEGATIVE); COLOR,URINE YELLOW (YELLOW); LEUKOCYTE ESTERASE ,URINE SMALL (NEGATIVE); NITRITE, URINE NEGATIVE (NEGATIVE); PH,URINE 5.5 (5.0-8.0); PROTEIN,URINE 100 mg/dl (NEGATIVE); UGLUCOSE NEGATIVE (NEGATIVE); UROBILINOGEN,URINE 0.2 EU/dL (0.2)
--- NOTE | 2021-06-10 12:23 | NUR ---
DAUGHTER SPEAKING WITH DR. BONILLA.
--- NOTE | 2021-06-10 12:37 | NUR ---
MOVE SHEET SUBMITTED AND CALLED FOR MS BED.
[2021-06-10 12:40] LABS: BACTERIA,URINE Many /HPF (None Seen)
[2021-06-10 12:41] LABS: SQUAMOUS EPITHELIAL CELL,UR Few /HPF (None Seen)
--- NOTE | 2021-06-10 13:16 | NUR ---
covid sample obtained and sent to lab
--- NOTE | 2021-06-10 13:55 | NUR ---
[facility] CALLED MILLINERY SALESPERSON PAGED.
--- NOTE | 2021-06-10 14:37 | NUR ---
ANIA PAGED AGAIN DR. WING SPEAKING WITH DR. BONILLA.
--- NOTE | 2021-06-10 15:00 | NUR ---
ADLS DONE. BM X1. ALL NEEDS MET. SAFETY MEASURES IN PLACE.
--- NOTE | 2021-06-10 15:05 | NUR ---
GOT BED 119
--- NOTE | 2021-06-10 15:25 | NUR ---
GAVE REPORT TO [employer]AN[employer]ALS CONSULTANT
[2021-06-10 15:47] VITALS: BP 143/77
--- NOTE | 2021-06-10 16:00 | NUR ---
MS RN NOTE RECEIVED PATIENT FROM ER WITH DX UTI UNDER CARE DR WING ,PATIENT ALERT , ORIENTED X4 , ON RA NO SOB NOTED AT THIS TIME, VS TAKEN ,BODY CHECK DONE , BELONGING CHECKED BY SALVAGE INSPECTOR , HOSPITAL ORIENTATION DONE ,NO SOB NOTED NO C\O DISCOMFORT AT THIS TIME, BED IN LOWEST AND LOCKED POSITION , CALL LIGHT WITHIN REACH, WILL INFORM TO DR WING ABOUT ADMISSION
[2021-06-10] MEDS ORDERED: ZOLPIDEM TARTRATE 5 MG TABLET PO PRN (17:30)
[2021-06-10] MEDS ORDERED: HYDROCODONE/APAP 5/325MG TABLET PO PRN (17:30)
[2021-06-10] MEDS ORDERED: ACETAMINOPHEN 325 MG TABLET PO PRN (17:30)
[2021-06-10] MEDS ORDERED: DEXTROSE 50%-WATER 50 ML DISP.SYRIN IV PRN (17:30)
[2021-06-10] MEDS ORDERED: ONDANSETRON HCL/PF 4 MG/2 ML VIAL IVP PRN (17:30)
[2021-06-10] MEDS ORDERED: MAGNESIUM HYDROXIDE 30 ML UDC PO PRN (17:30)
[2021-06-10] MEDS ORDERED: Z GUARD REMEDY 2 OZ OINT TP PRN (17:30)
[2021-06-10] MEDS ORDERED: MAG HYDROX/AL HYDROX/SIMETH 30 ML UDC PO PRN (17:30)
[2021-06-10] MEDS: BLOOD SUGAR DIAGNOSTIC 1 EACH STRIP IN SCH ×2 (17:37→21:39)
[2021-06-10] MEDS: ENOXAPARIN SODIUM 40 MG/0.4 ML DISP.SYRIN SQ SCH (17:42)
[2021-06-10] MEDS: CEFTRIAXONE 1 G in IV D5W 50 ML IV SCH (17:43)
[2021-06-10] MEDS: IV 1/2NS 1000 ML 1,000 ML IV PRN (17:44)
--- NOTE | 2021-06-10 17:55 | NUR ---
ms rn note per dr camacho flu vaccine ordered upon discharge ,started on ivf as ordered ,all needs attended
--- NOTE | 2021-06-10 18:39 | NUR ---
RN CLOSING NOTE PT IS RESTING IN BED ON ROOM AIR, WITH NO SIGN OF DISTRESS OR SOB, PATIENT IS ALERT AND ORIENTED X4 RIGHT AC IV PATENT AND FLOSSING WELL. RUNNING 1/2 NS 75ML/HR, CONSUMED 50 % OF DINNER INDEPENDENTLY, SAFETY PRECAUTIONS IN PLACE, BED IN LOWEST AND LOCKED POSITION , CALL LIGHT WITHIN REACH, WILL ENDORSED TO LEAN MANAGERENVIRONMENTAL SERVICES AIDE
[2021-06-10 20:00] VITALS: BP 157/52
[2021-06-10] MEDS: ATORVASTATIN 10 MG TABLET PO SCH (21:41)
[2021-06-10] MEDS: LEVETIRACETAM (250 MG) 250 MG TABLET PO SCH (21:41)
[2021-06-10] MEDS: INSULIN GLARGINE, 100 UNIT/ML CARTRIDGE SQ SCH (21:49)
[2021-06-10] MEDS: INSULIN REGULAR, HUMAN 100 UNIT/ML 3 ML VIAL SQ PRN (21:49)
[2021-06-11 04:00] VITALS: BP 164/66
[2021-06-11] MEDS: IV 1/2NS 1000 ML 1,000 ML IV PRN ×2 (06:28→20:50)
[2021-06-11 06:46] LABS: BASOPHILS % (AUTO) 0.7 % (0.0-2.0); EOSINOPHILS % (AUTO) 0.9 % (0.0-6.0); HEMATOCRIT 34 % (33-45); HEMOGLOBIN 11.6 g/dL (11.5-14.8); LYMPHOCYTES # (AUTO) 1.8 K/uL (0.8-4.8); MEAN CORPUSCULAR HGB CONC 34 g/dl (31.0-36.0); MEAN CORPUSCULAR VOLUME 98 fL (82-100); MONOCYTES # (AUTO) 0.5 K/uL (0.1-1.30); MONOCYTES % (AUTO) 8.8 % (2.0-12.0); NEUTROPHILS # (AUTO) 3.1 K/uL (1.8-8.9); NEUTROPHILS % (AUTO) 56.6 % (43.0-81.0); PLATELET COUNT (AUTO) 260 K/uL (150-450); RED BLOOD CELL COUNT(AUTO) 3.49 MIL/uL (4.0-5.2); WHITE BLOOD COUNT (AUTO) 5.5 K/uL (4.3-11.0)
[2021-06-11 06:54] LABS: CALCIUM, SERUM 9.1 mg/dL (8.5-10.1); CREATININE 0.8 mg/dL (0.6-1.3); MAGNESIUM 2.1 mg/dL (1.8-2.4); PHOSPHORUS 3.4 mg/dL (2.5-4.9); POTASSIUM 3.7 mmol/L (3.5-5.1)
[2021-06-11 07:06] LABS: THYROID STIMULATING HORMONE 2.179 uIU/mL (0.358-3.74)
--- NOTE | 2021-06-11 07:51 | NUR ---
RN OPENING NOTE RECEIVED PATIENT AWAKE IN BED, ALERT AND VERBALLY RESPONSIVE. NOT IN DISTRESS, R AC MED LOCK IN PLACE, PATENT AND DRAINING WELL WITH 1/2 NS @ 75CC/HR. NO SIGNS OF INFILTRATION NOTED. SAFETY MEASURES FOLLOWED. CALL DYER WITHIN REACH.
[2021-06-11] MEDS: PANTOPRAZOLE 40 MG TABLET.DR PO SCH (08:03)
[2021-06-11] MEDS: BLOOD SUGAR DIAGNOSTIC 1 EACH STRIP IN SCH ×4 (08:06→21:56)
[2021-06-11] MEDS: LEVETIRACETAM (250 MG) 250 MG TABLET PO SCH ×2 (08:35→21:41)
[2021-06-11] MEDS: LOSARTAN POTASSIUM 50 MG TABLET PO SCH (08:36)
[2021-06-11] MEDS: AMLODIPINE BESYLATE 5 MG TABLET PO SCH (08:36)
[2021-06-11] MEDS: ASPIRIN EC 81 MG TABLET.DR PO SCH (08:36)
--- NOTE | 2021-06-11 08:47 | NUR ---
WOUND CARE CONSULT: PT PRESENTS WITH LEFT ANKLE SCAR WITH SUTURE/RAISED AREA, DRY ABRASIONS/SCRATCHES TO RT LOWER LEG AND CLOSED INCISIONS TO LEFT HIP AND THIGH AREA WITH SOME CRUSTING, ALL PRESENT ON ADMISSION. RECOMMEND SURGICAL FOLLOW UP FOR HIP. DPM CONSULT CALLED TO DR PICKETT FOR LEFT ANKLE. RCOMMENDATIONS MADE FOR SKIN PROTECTION. DISCUSSED WITH NURSING STAFF. LEFT SIDED WEAKNESS NOTED WELL INCONTINENCE. MD IN AGREEMENT WITH PLAN OF CARE. Addendum: 06/11/21 at 0850 by JHON FOWLER WNDNU Amended: Links added.
[2021-06-11 12:00] VITALS: BP 163/65
[2021-06-11] MEDS: INSULIN REGULAR, HUMAN 100 UNIT/ML 3 ML VIAL SQ PRN ×2 (12:19→17:47)
[2021-06-11] MEDS: ENOXAPARIN SODIUM 40 MG/0.4 ML DISP.SYRIN SQ SCH (17:45)
[2021-06-11] MEDS: CEFTRIAXONE 1 G in IV D5W 50 ML IV SCH (17:51)
--- NOTE | 2021-06-11 18:55 | NUR ---
RN CLOSING NOTE PATIENT RESTING IN BED. NO SIGN OF DISTRESS OR SOB, PATIENT IS ALERT AND ORIENTED X4 RIGHT AC IV PATENT AND INFUSING WELL. RUNNING 1/2 NS 75ML/HR, CONSUMED. DUE MEDICATIONS GIVEN. MORNING CARE DONE. SAFETY PRECAUTIONS IN PLACE, BED IN LOWEST AND LOCKED POSITION , CALL LIGHT WITHIN REACH, WILL ENDORSED TO RESEARCH & ANALYTICS MANAGERRACKMAN
[2021-06-11 20:00] VITALS: BP 158/62
[2021-06-11] MEDS: ATORVASTATIN 10 MG TABLET PO SCH (21:41)
[2021-06-11] MEDS: INSULIN GLARGINE, 100 UNIT/ML CARTRIDGE SQ SCH (22:26)
--- NOTE | 2021-06-11 23:05 | NUR ---
RN NOTES BEDSIDE REPORT RECEIVED FROM SOL MALDONADO. PT TRANSFERRED TO MS ROOM 309 FOR ROSANNA. CALL LIGHT WITHIN REACH, SAFETY MEASURES AND ISOLATION PRECAUTION IN PLACE, WILL CONTINUE MONITOR AND ASSESS THROUGHOUT THE SHIFT. WILL CARRY OUT MD ORDERS ACCORDINGLY. DIRECTOR OF STUDENT LIFE MADE AWARE.
--- NOTE | 2021-06-11 23:45 | NUR ---
RN notes Patient in bed, resting comfortably with no distress noted. On room tolerating well. Alert and oriented, czech speaking only. No complaint of pain or discomfort. Kept clean and dry. Transferred to [address] [place] [address] [id number], endorsed to Ben HORTON.
--- NOTE | 2021-06-12 04:00 | NUR ---
RN NOTES NO NOTED CHANGES IN PATIENT CONDITION AT THIS TIME; NO SIGNS OF ACUTE RESPIRATORY DISTRESS. AM PATIENT CARE RENDERED.WILL CONTINUE TO MONITOR AND REASSESS FOR ANY CHANGES THROUGHOUT THE SHIFT.
[2021-06-12] MEDS: BLOOD SUGAR DIAGNOSTIC 1 EACH STRIP IN SCH ×4 (06:45→21:42)
[2021-06-12] MEDS: INSULIN REGULAR, HUMAN 100 UNIT/ML 3 ML VIAL SQ PRN ×3 (06:47→17:47)
--- NOTE | 2021-06-12 06:48 | NUR ---
RN CLOSING NOTE: PATIENT REMAINS IN ROOM IN NO SIGNS OF RESPIRATORY DISTRESS, PATIENT STILL ON ROOM AIR ;TOLERATING WELL SATURATING @ >95% SP02. SAFETY MEASURES IMPLEMENTED, BED IN LOWEST POSITION, LOCKED, SIDE RAILS UP, CALL LIGHT WITHIN REACH. ALL NEEDS AND ORDERS ADDRESSED DURING THE SHIFT. IV ACCESS MAINTAINED INTACT, SECURED AND FLUSHING WELL. ALL DUE MEDS GIVEN ORDERED & SCHEDULED ; PATIENT TOLERATED WELL. PATIENT KEPT CLEAN & COMFORTABLE WITHIN THE SHIFT. PATIENT ENDORSED TO INCOMING SHIFT RN WITH STABLE VITAL SIGN AND FOR CONTINUITY OF CARE.
[2021-06-12 08:00] VITALS: BP 135/65
[2021-06-12] MEDS: AMLODIPINE BESYLATE 5 MG TABLET PO SCH (10:26)
[2021-06-12] MEDS: LEVETIRACETAM (250 MG) 250 MG TABLET PO SCH ×2 (10:27→21:27)
[2021-06-12] MEDS: ASPIRIN EC 81 MG TABLET.DR PO SCH (10:27)
[2021-06-12] MEDS: LOSARTAN POTASSIUM 50 MG TABLET PO SCH (10:27)
[2021-06-12] MEDS: PANTOPRAZOLE 40 MG TABLET.DR PO SCH (10:27)
[2021-06-12] MEDS: IV 1/2NS 1000 ML 1,000 ML IV PRN (12:32)
[2021-06-12 16:00] VITALS: BP 124/55
--- NOTE | 2021-06-12 18:00 | NUR ---
received pt. in am alert and oriented x4.beninese speaking,no acute distress.iv infusing.
[2021-06-12] MEDS: CEFTRIAXONE 1 G in IV D5W 50 ML IV SCH (18:29)
[2021-06-12] MEDS: ENOXAPARIN SODIUM 40 MG/0.4 ML DISP.SYRIN SQ SCH (18:32)
--- NOTE | 2021-06-12 19:38 | NUR ---
MS RN NOTES PATIENT IN ROOM IN NO SIGNS OF RESPIRATORY DISTRESS, PATIENT ON ROOM AIR ;TOLERATING WELL SATURATING @ >95% SP02. SAFETY MEASURES IMPLEMENTED, BED IN LOWEST POSITION, LOCKED, SIDE RAILS UP, CALL LIGHT WITHIN REACH. ALL NEEDS AND ORDERS ADDRESSED AT THIS TIME. IV ACCESS MAINTAINED INTACT, SECURED AND FLUSHING WELL.PATIENT KEPT CLEAN & COMFORTABLE WITHIN THE SHIFT. WILL CONTINUE TO MONITOR.
[2021-06-12 20:00] VITALS: BP 150/70
[2021-06-12] MEDS: ATORVASTATIN 10 MG TABLET PO SCH (21:27)
[2021-06-12] MEDS: INSULIN GLARGINE, 100 UNIT/ML CARTRIDGE SQ SCH (21:44)
[2021-06-13] MEDS: BLOOD SUGAR DIAGNOSTIC 1 EACH STRIP IN SCH ×4 (06:30→21:28)
[2021-06-13 06:31] LABS: BASOPHILS % (AUTO) 0.9 % (0.0-2.0); EOSINOPHILS % (AUTO) 0.9 % (0.0-6.0); HEMATOCRIT 31 % (33-45); HEMOGLOBIN 10.8 g/dL (11.5-14.8); LYMPHOCYTES # (AUTO) 1.5 K/uL (0.8-4.8); MEAN CORPUSCULAR HGB CONC 35 g/dl (31.0-36.0); MEAN CORPUSCULAR VOLUME 96 fL (82-100); MONOCYTES # (AUTO) 0.4 K/uL (0.1-1.30); MONOCYTES % (AUTO) 8.9 % (2.0-12.0); NEUTROPHILS # (AUTO) 2.8 K/uL (1.8-8.9); NEUTROPHILS % (AUTO) 58.3 % (43.0-81.0); PLATELET COUNT (AUTO) 236 K/uL (150-450); RED BLOOD CELL COUNT(AUTO) 3.24 MIL/uL (4.0-5.2); WHITE BLOOD COUNT (AUTO) 4.8 K/uL (4.3-11.0)
--- NOTE | 2021-06-13 06:33 | NUR ---
MS RN NOTES PATIENT IN ROOM IN NO SIGNS OF RESPIRATORY DISTRESS, PATIENT ON ROOM AIR ;TOLERATING WELL SATURATING @ >95% SP02. SAFETY MEASURES IMPLEMENTED, BED IN LOWEST POSITION, LOCKED, SIDE RAILS UP, CALL LIGHT WITHIN REACH. ALL NEEDS AND ORDERS ADDRESSED AT THIS TIME. IV ACCESS MAINTAINED INTACT, SECURED AND FLUSHING WELL.PATIENT KEPT CLEAN & COMFORTABLE WITHIN THE SHIFT. ALL DUE MEDS GIVEN AND TOLERATED WELL. CALL LIGHT WITHIN REACH. WILL ENDORSE CARE TO DAY SHIFT NURSE.
[2021-06-13 06:43] LABS: ALBUMIN 2.6 g/dL (3.4-5.0); BILIRUBIN,TOTAL 0.3 mg/dL (0.2-1.0); CALCIUM, SERUM 8.9 mg/dL (8.5-10.1); CREATININE 0.7 mg/dL (0.6-1.3); MAGNESIUM 1.9 mg/dL (1.8-2.4); PHOSPHORUS 3.3 mg/dL (2.5-4.9); POTASSIUM 3.2 mmol/L (3.5-5.1); TOTAL PROTEIN, SERUM 6.5 g/dL (6.4-8.2)
--- NOTE | 2021-06-13 07:42 | NUR ---
MS RN OPENING NOTES RECEIVED PATIENT IN BED, AWAKE A/O X4, VERBALLY RESPONSIVE, NO SIGNS OF ACUTE DISTRESS NOTED. ON ROOM AIR, BREATHING EVEN AND UNLABORED. SL ON RIGHT AC G#20 AND LH G#20 PATENT AND INTACT WITH 1/2 NS @75ML/HR INFUSING WELL. NO C/O PAIN OR DISCOMFORT AT THIS TIME. SAFETY MEASURES PROVIDED. BED LOCKED AND IN LOWEST POSITION, SR UP X2, CALL LIGHT AND TABLE PLACED WITHIN EASY REACH. WILL CONTINUE TO MONITOR.
[2021-06-13] MEDS: PANTOPRAZOLE 40 MG TABLET.DR PO SCH (07:48)
[2021-06-13] MEDS: LEVETIRACETAM (250 MG) 250 MG TABLET PO SCH ×2 (08:51→21:29)
[2021-06-13] MEDS: LOSARTAN POTASSIUM 50 MG TABLET PO SCH (08:52)
[2021-06-13] MEDS: AMLODIPINE BESYLATE 5 MG TABLET PO SCH (08:52)
[2021-06-13] MEDS: ASPIRIN EC 81 MG TABLET.DR PO SCH (08:52)
[2021-06-13] MEDS: POTASSIUM CHLORIDE 20 MEQ TAB.PRT.SR PO SCH ×2 (09:38→10:39)
[2021-06-13 10:25] VITALS: BP 115/82
[2021-06-13] MEDS: INSULIN REGULAR, HUMAN 100 UNIT/ML 3 ML VIAL SQ PRN ×3 (11:57→21:27)
--- NOTE | 2021-06-13 15:00 | NUR ---
RN NOTES PATIENTS GRANDSON BROUGHT A CELLPHONE AND BRICKMASON FOR PATIENT. LEFT AT BEDSIDE.
[2021-06-13 16:00] VITALS: BP 139/65
[2021-06-13] MEDS: ENOXAPARIN SODIUM 40 MG/0.4 ML DISP.SYRIN SQ SCH (17:36)
[2021-06-13] MEDS: CEFTRIAXONE 1 G in IV D5W 50 ML IV SCH (17:47)
--- NOTE | 2021-06-13 18:32 | NUR ---
MS RN CLOSING NOTES PATIENT ON BED, AWAKE, A/O X4, VERBALLY RESPONSIVE, NO SIGNS OF ACUTE DISTRESS NOTED. REMAINS ON ROOM AIR, SATURATION @ 99%. BREATHING EVEN AND UNLABORED. SL ON RIGHT AC G#20 AND LH G#20 PATENT AND INTACT WITH 1/2 NS @75ML/HR INFUSING WELL. IV ABX GIVEN ORDERED, NO A/R NOTED. NO C/O PAIN OR DISCOMFORT AT THIS TIME. SAFETY MEASURES PROVIDED. BED LOCKED AND IN LOWEST POSITION, SR UP X2, CALL LIGHT AND TABLE PLACED WITHIN EASY REACH. WILL ENDORSE TO NEXT SHIFT.
--- NOTE | 2021-06-13 19:00 | NUR ---
MS RN OPENING NOTE RECEIVED PT IN BED, AWAKE AND RESTING. A/O X4. PT IS ON ROOM AIR, NO SOB OR RESPIRATORY DISTRESS NOTED, NO C/O PAIN AT THIS TIME. RESPIRATIONS EVEN AND UNLABORED. IV ACCESS NOTED IN LEFT HAND G #20, RIGHT A . RODRIGUEZ CATHETER IN PLACE. FALL AND SAFETY MEASURES IN PLACE AND MAINTAINED AT ALL TIMES. BED ALARM, BED IN LOW AND LOCKED POSITION, HOB ELEVATED TO SEMI FOWLERS POSITION, CALL LIGHT AND TABLE WITHIN REACH. SIDE RAILS UP X2. WILL CONTINUE WITH PLAN OF CARE. Addendum: 06/13/21 at 2027 by ELIAN FIELD RN MS RN OPENING NOTE RECEIVED PT IN BED, AWAKE AND RESTING. A/O X4. PT IS ON ROOM AIR, NO SOB OR RESPIRATORY DISTRESS NOTED, NO C/O PAIN AT THIS TIME. RESPIRATIONS EVEN AND UNLABORED. IV ACCESS NOTED IN LEFT HAND G #20, RIGHT AC G # 20. 2 NA INFUSING @ 75ML/HR. FALL AND SAFETY MEASURES IN PLACE AND MAINTAINED AT ALL TIMES. BED ALARM, BED IN LOW AND LOCKED POSITION, HOB ELEVATED TO SEMI FOWLERS POSITION, CALL LIGHT AND TABLE WITHIN REACH. SIDE RAILS UP X2. WILL CONTINUE WITH PLAN OF CARE.
[2021-06-13 20:00] VITALS: BP 159/72
[2021-06-13] MEDS: INSULIN GLARGINE, 100 UNIT/ML CARTRIDGE SQ SCH (21:25)
[2021-06-13] MEDS: ATORVASTATIN 10 MG TABLET PO SCH (21:30)
[2021-06-14] MEDS: IV 1/2NS 1000 ML 1,000 ML IV PRN (05:12)
[2021-06-14] MEDS: BLOOD SUGAR DIAGNOSTIC 1 EACH STRIP IN SCH ×3 (05:27→17:47)
[2021-06-14] MEDS: INSULIN REGULAR, HUMAN 100 UNIT/ML 3 ML VIAL SQ PRN ×2 (05:29→11:54)
--- NOTE | 2021-06-14 05:29 | NUR ---
BS 87. NO INSULIN GIVEN PER SLIDING SCALE
--- NOTE | 2021-06-14 06:30 | NUR ---
MS RN CLOSING NOTE PT SLEEPING AT THE MOMENT BUT EASILY AROUSED. . PT REMAINED STABLE THROUGHOUT SHIFT. WILL ENDORSE TO ONCOMING NURSE FOR ROSANNA.
--- NOTE | 2021-06-14 07:36 | NUR ---
RN OPENING NOTE- PATIENT IN BED, AWAKE , VERBALLY RESPONSIVE, NO SIGNS OF ACUTE DISTRESS NOTED. ON ROOM AIR, BREATHING EVEN AND UNLABORED. SL ON RIGHT AC G#20 AND LH G#20 PATENT AND INTACT WITH 1/2 NS @75ML/HR INFUSING WELL. NO C/O PAIN OR DISCOMFORT AT THIS TIME. SAFETY MEASURES PROVIDED. BED LOCKED AND IN LOWEST POSITION, SR UP X2, CALL LIGHT AND TABLE PLACED WITHIN EASY REACH. WILL CONTINUE TO MONITOR.
[2021-06-14 08:00] VITALS: BP 151/68
[2021-06-14] MEDS: PANTOPRAZOLE 40 MG TABLET.DR PO SCH (08:17)
[2021-06-14] MEDS: ASPIRIN EC 81 MG TABLET.DR PO SCH (08:40)
[2021-06-14] MEDS: LOSARTAN POTASSIUM 50 MG TABLET PO SCH (08:40)
[2021-06-14] MEDS: AMLODIPINE BESYLATE 5 MG TABLET PO SCH (08:40)
[2021-06-14] MEDS: LEVETIRACETAM (250 MG) 250 MG TABLET PO SCH (08:40)
[2021-06-14 13:18] LABS: CALCIUM, SERUM 8.9 mg/dL (8.5-10.1); CREATININE 0.7 mg/dL (0.6-1.3); POTASSIUM 3.5 mmol/L (3.5-5.1)
[2021-06-14 16:00] VITALS: BP 164/71
--- NOTE | 2021-06-14 17:47 | NUR ---
RN NOTE- PT DC TO [facility] AT THIS TIME. VS STABLE. NEEDS ATTENDED. REPORT PHONED TO SHAUNNA AT FACILITY. POST DC CARE REVIEWED W STAFF AND AMBULANCE CREW. ID [id number] REMOVED. ESCORTED OFF UNIT ON [facility].
== END 2021-06-14 18:00 | DRG 690 ==
LOC: ER 10:28 → MEDSG1 15:15 → MED 06-11 23:12
DX: N39.0 Urinary tract infection, site not specified (principal); E44.1 Mild protein-calorie malnutrition; I10 Essential (primary) hypertension; E11.9 Type 2 diabetes mellitus without complications; E78.5 Hyperlipidemia, unspecified; Z79.4 Long term (current) use of insulin; Z20.822 Contact with and (suspected) exposure to COVID-19; Z79.82 Long term (current) use of aspirin; Z79.899 Other long term (current) drug therapy; Z96.649 Presence of unspecified artificial hip joint; L89.526 Pressure-induced deep tissue damage of left ankle; M20.40 Other hammer toe(s) (acquired), unspecified foot; M62.562 Muscle wasting and atrophy, not elsewhere classified, left lower leg; M62.561 Muscle wasting and atrophy, not elsewhere classified, right lower leg; F17.200 Nicotine dependence, unspecified, uncomplicated; Z83.3 Family history of diabetes mellitus
CPT/HCPCS: 36415; 80048-TC; 80053-TC; 80061-TC; 80076-TC; 81001; 82962-TC; 83735-TC; 84100-TC; 84443-TC; 84484-TC; 85025-TC; 87081-TC; 87086-TC; 97112-TC; 97530-TC; C9803; G0378; J0696; J1650; J1815; J3490; J7042; J7060

== ENCOUNTER 2021-10-06 19:41 | Inpatient (IN) | payer MEDICARE ==
[~2021-10-06] VITALS: Ht 167.6 cm; Wt 56.8 kg
--- NOTE | 2021-10-06 19:56 | NUR ---
PRAFUL FROM [facility], FOR WOUND CHECK ON LEFT ANKLE FOR OSTEOMYLELITIS SURGURY 2 YEARS AGO. "HASNT BEEN HEALING PROPERLY". PATIENT ALERT AND ORIENTED X3. BROUGHT IN BY STRETCHER WITH WOUND ON LEFT ANKLE WRAPPED PROPERLY.
[2021-10-06] MEDS ORDERED: VANCOMYCIN 500 MG VIAL ONE (20:16)
[2021-10-06] MEDS ORDERED: VANCOMYCIN 1 GM VIAL ONE (20:16)
[2021-10-06] MEDS ORDERED: VANCOMYCIN HCL 1.25 GM in IV D5W 260 ML IV ONE (20:30)
--- NOTE | 2021-10-06 20:53 | NUR ---
COVID SWAB DONE AND SENT TO LAB
[2021-10-06 20:58] LABS: BASOPHILS % (AUTO) 0.8 % (0.0-2.0); HEMATOCRIT 29 % (33-45); HEMOGLOBIN 9.8 g/dL (11.5-14.8); LYMPHOCYTES # (AUTO) 2.2 K/uL (0.8-4.8); LYMPHOCYTES % (AUTO) 38.3 % (20.0-44.0); MEAN CORPUSCULAR HGB CONC 34 g/dl (31.0-36.0); MEAN CORPUSCULAR VOLUME 91 fL (82-100); MONOCYTES # (AUTO) 0.5 K/uL (0.1-1.30); MONOCYTES % (AUTO) 8.7 % (2.0-12.0); NEUTROPHILS # (AUTO) 2.9 K/uL (1.8-8.9); NEUTROPHILS % (AUTO) 51.2 % (43.0-81.0); PLATELET COUNT (AUTO) 250 K/uL (150-450); RED BLOOD CELL COUNT(AUTO) 3.19 MIL/uL (4.0-5.2); WHITE BLOOD COUNT (AUTO) 5.7 K/uL (4.3-11.0)
[2021-10-06 21:27] LABS: CALCIUM, SERUM 8.5 mg/dL (8.5-10.1); CREATININE 1.3 mg/dL (0.6-1.3)
[2021-10-06] MEDS ORDERED: MAGNESIUM HYDROXIDE 30 ML UDC PO PRN (21:30)
[2021-10-06] MEDS ORDERED: Z GUARD REMEDY 4 OZ OINT TP PRN (21:30)
[2021-10-06] MEDS ORDERED: MAG HYDROX/AL HYDROX/SIMETH 30 ML UDC PO PRN (21:30)
[2021-10-06] MEDS ORDERED: HYDROCODONE/APAP 5/325MG TABLET PO PRN (21:30)
[2021-10-06] MEDS ORDERED: DEXTROSE 50%-WATER 50 ML DISP.SYRIN IV PRN (21:30)
[2021-10-06] MEDS ORDERED: ONDANSETRON HCL/PF 4 MG/2 ML VIAL IVP PRN (21:30)
[2021-10-06] MEDS ORDERED: ACETAMINOPHEN 325 MG TABLET PO PRN ×2 (21:30)
[2021-10-06 22:12] LABS: POTASSIUM 4.4 mmol/L (3.5-5.1)
[2021-10-06] MEDS ORDERED: CEFEPIME 1 GM in IV D5W 50 ML IV SCH (23:00)
--- NOTE | 2021-10-07 00:24 | NUR ---
REPORT GIVEN TO NICHOLAS HORTON FOR ROSANNA
[2021-10-07 00:35] VITALS: BP 158/69
--- NOTE | 2021-10-07 00:35 | NUR ---
analytics analyst notes Received Pt from ER nurses Berna RN and Corey RN. Pt is alert and orientedX3-4. Pt speak Canadian and able to make needs known. On room air. No SOB. No S/S of distress noted. VS is stable. IV site at RFA# 20 is clean, intact, flushes well and SL. Skin assessment is done and performed. Pictures is taken and placed at Pt's chart. Wound care consult is order. Pt's belonging is checked by SOL Prince and signed by Pt. Reorient Pt to the room and the use of call light. Safety precautions is maintained. Bed at low position, bed alarm is on, brakes locked, side rails upX3, hob elevated and call light is within reach. Will continue to monitor.
[2021-10-07 01:00] VITALS: BP 158/69
[2021-10-07] MEDS ORDERED: CEFEPIME 1 GM in IV D5W 50 ML IV SCH (01:00)
[2021-10-07] MEDS: BLOOD SUGAR DIAGNOSTIC 1 EACH STRIP IN SCH ×5 (01:12→21:13)
[2021-10-07] MEDS: ENOXAPARIN SODIUM 40 MG/0.4 ML DISP.SYRIN SQ SCH ×2 (01:27→21:11)
[2021-10-07] MEDS: INSULIN REGULAR, HUMAN 100 UNIT/ML 3 ML VIAL SQ PRN ×5 (01:31→21:13)
[2021-10-07] MEDS ORDERED: CEFEPIME 1 GM VIAL ONE (01:59)
--- NOTE | 2021-10-07 02:13 | NUR ---
RN notes Received cefepime 1 gram from warehouse order selector SOL Dewey.
--- NOTE | 2021-10-07 03:22 | NUR ---
RN notes Wound care provided. Pt tolerated activity well.
--- NOTE | 2021-10-07 06:40 | NUR ---
RN closing notes Pt is resting in bed comfortably. Pt is alert and orientedX3-4. On room air. No SOB. No S/S of distress noted. IV site at RFA# 20 is clean, intact and SL. VS is stable. Routine meds were given as ordered. Kept Pt clean, dry and comfortable. all needs met and attended. safety precautions is maintained. Bed at low position, brakes locked, side rails upX3, bed alarm is on and laura light is within reach. Will endorse to am nurse for ROSANNA.
[2021-10-07 07:03] LABS: CALCIUM, SERUM 8.8 mg/dL (8.5-10.1); CREATININE 1.1 mg/dL (0.6-1.3); MAGNESIUM 2.1 mg/dL (1.8-2.4); PHOSPHORUS 3.1 mg/dL (2.5-4.9)
[2021-10-07 07:21] LABS: BASOPHILS % (AUTO) 0.6 % (0.0-2.0); EOSINOPHILS % (AUTO) 1.1 % (0.0-6.0); HEMATOCRIT 29 % (33-45); HEMOGLOBIN 10.1 g/dL (11.5-14.8); LYMPHOCYTES # (AUTO) 1.2 K/uL (0.8-4.8); LYMPHOCYTES % (AUTO) 16.6 % (20.0-44.0); MEAN CORPUSCULAR HGB CONC 35 g/dl (31.0-36.0); MEAN CORPUSCULAR VOLUME 90 fL (82-100); MONOCYTES # (AUTO) 0.4 K/uL (0.1-1.30); MONOCYTES % (AUTO) 5.7 % (2.0-12.0); NEUTROPHILS # (AUTO) 5.6 K/uL (1.8-8.9); PLATELET COUNT (AUTO) 251 K/uL (150-450); RED BLOOD CELL COUNT(AUTO) 3.19 MIL/uL (4.0-5.2); WHITE BLOOD COUNT (AUTO) 7.4 K/uL (4.3-11.0)
--- NOTE | 2021-10-07 07:37 | NUR ---
RN OPENING NOTES Patient seen comfortably lying in bed, no apparent distress noted, respirations even and unlabored, no SOB, denies any pain or discomfort at this time, no grimacing. Call light left within reach, safety precautions in place, brakes locked, side rails up X 2, will monitor closely for any changes.
[2021-10-07 08:00] VITALS: BP 142/58
[2021-10-07] MEDS: FAMOTIDINE (20 MG) 20 MG TABLET PO SCH (08:56)
[2021-10-07] MEDS: LOSARTAN POTASSIUM 50 MG TABLET PO SCH (08:56)
[2021-10-07] MEDS: AMLODIPINE BESYLATE 5 MG TABLET PO SCH (08:56)
[2021-10-07] MEDS: LEVETIRACETAM (250 MG) 250 MG TABLET PO SCH ×2 (08:56→21:11)
[2021-10-07] MEDS: ASPIRIN EC 81 MG TABLET.DR PO SCH (08:56)
[2021-10-07] MEDS: PANTOPRAZOLE 40 MG TABLET.DR PO SCH (08:56)
[2021-10-07 09:16] LABS: CHOLESTEROL 155 mg/dL (<200); HDL CHOLESTEROL 49 mg/dL (40-60); LDL 89 mg/dL (0-99); TRIGLYCERIDES 68 mg/dL (30-150)
[2021-10-07 09:25] LABS: THYROID STIMULATING HORMONE 2.067 uIU/mL (0.358-3.74)
[2021-10-07] MEDS: VANCOMYCIN HCL 0.75 GM in IV D5W 250 ML IV SCH ×2 (11:30→23:17)
--- NOTE | 2021-10-07 13:15 | NUR ---
Patient has an order for CTA of abdominal aorta with runoffs and pelvic, consent for the procedure obtained from patient, health education provided, verbalized understanding and gratitude. Consent form for procedure signed by patient, checklist and consent filed in the chart.
--- NOTE | 2021-10-07 13:23 | NUR ---
Patient has a yellow ring, and patient stated if we can keep it somewhere safe for now, asked patient if we can call someone to take it home and she said she rather have it kept in a safe, reminded resident that she can get her ring (yellow) back before leaving the hospital or anytime she wants it back, explained to patient that the ring (yellow) will be kept in a safe in the nursing office, verbalized understanding and gratitude, charge nurse, nurse fast food assistant restaurant manager and lock maintenance supervisor aware of the situation.
[2021-10-07] MEDS ORDERED: CT SWABBABLE VALVE TRANS SET 1 EA INFUS.SET MC ONE (15:10)
[2021-10-07] MEDS ORDERED: IOHEXOL-350 100 ML VIAL IV ONE (15:10)
[2021-10-07] MEDS ORDERED: IV NS 0.9% 250 ML IV ONE (15:10)
[2021-10-07] MEDS: GLUCERNA SHAKE 237 ML CAN PO SCH (17:49)
--- NOTE | 2021-10-07 18:31 | NUR ---
RN CLOSING NOTES Patient lying in bed, no apparent distress noted, respirations even and unlabored, no no shortness of breath, denies any pain or discomfort, no grimacing. All due medications given per MD order, tolerating well. No s/s of hypo or hyperglycemia, no tremors, no change in level of consciousness, insulin given per sliding scale as needed per MD order. Patient repositioned frequently, kept clean and dry, frequent visual check rendered, aspiration precautions observed at all times, all needs attended, seizure precautions in place, safety precautions in place, brakes locked, padded side rails up X 2, call light left within reach will endorse to next shift for continuity of care.
[2021-10-07 20:00] VITALS: BP 109/43
[2021-10-07] MEDS: ATORVASTATIN 10 MG TABLET PO SCH (21:10)
[2021-10-07] MEDS: INSULIN GLARGINE, 100 UNIT/ML CARTRIDGE SQ SCH (21:12)
[2021-10-08] MEDS: CEFEPIME 1 GM in IV D5W 50 ML IV SCH ×2 (02:34→02:49)
[2021-10-08] MEDS: INSULIN REGULAR, HUMAN 100 UNIT/ML 3 ML VIAL SQ PRN ×4 (06:32→21:55)
[2021-10-08] MEDS: BLOOD SUGAR DIAGNOSTIC 1 EACH STRIP IN SCH ×4 (06:32→21:52)
--- NOTE | 2021-10-08 06:46 | NUR ---
MS RN NOTES AWAKE & RESPONSIVE. NOT IN ANY DISTRESS. NO SOB NOTED. DENIES ANY PAIN OR DISCOMFORT AT THIS TIME. WITH IV-HL PATENT & INTACT. AM CARE DONE. MONITORED ACCORDINGLY. CALL LIGHT WITHIN REACH. BED IN LOWEST POSITION. SR UP X 3 WITH BED ALARM ON FOR SAFETY. WILL ENDORSE TO NEXT SHIFT.
[2021-10-08 07:12] LABS: ALBUMIN 2.5 g/dL (3.4-5.0); BILIRUBIN,TOTAL 0.3 mg/dL (0.2-1.0); CALCIUM, SERUM 8.9 mg/dL (8.5-10.1); CREATININE 1.1 mg/dL (0.6-1.3); MAGNESIUM 2.2 mg/dL (1.8-2.4); PHOSPHORUS 3.8 mg/dL (2.5-4.9); POTASSIUM 4.1 mmol/L (3.5-5.1); TOTAL PROTEIN, SERUM 7.1 g/dL (6.4-8.2)
[2021-10-08 07:19] LABS: BASOPHILS % (AUTO) 0.6 % (0.0-2.0); EOSINOPHILS % (AUTO) 1.8 % (0.0-6.0); HEMATOCRIT 33 % (33-45); HEMOGLOBIN 11.1 g/dL (11.5-14.8); LYMPHOCYTES # (AUTO) 1.1 K/uL (0.8-4.8); LYMPHOCYTES % (AUTO) 17.8 % (20.0-44.0); MEAN CORPUSCULAR HGB CONC 34 g/dl (31.0-36.0); MEAN CORPUSCULAR VOLUME 90 fL (82-100); MONOCYTES # (AUTO) 0.4 K/uL (0.1-1.30); MONOCYTES % (AUTO) 6.6 % (2.0-12.0); NEUTROPHILS # (AUTO) 4.3 K/uL (1.8-8.9); NEUTROPHILS % (AUTO) 73.2 % (43.0-81.0); PLATELET COUNT (AUTO) 278 K/uL (150-450); RED BLOOD CELL COUNT(AUTO) 3.61 MIL/uL (4.0-5.2); WHITE BLOOD COUNT (AUTO) 5.9 K/uL (4.3-11.0)
--- NOTE | 2021-10-08 07:20 | NUR ---
RN OPENING NOTES RECEIVED PATIENT IN BED, AWAKE, VERBALLY RESPONSIVE, NO SIGNS OF ACUTE DISTRESS NOTED. ON ROOM AIR, BREATHING EVEN AND UNLABORED, NO SOB NOTED. WITH IV ACCESS ON RFA #20G, SALINE LOCKED, INTACT AND PATENT. NO C/O PAIN AT THIS TIME. SAFETY MEASURES IN PLACE. BED IN LOWEST LOCKED POSITION, SR UP X2, CALL LIGHT PLACED WITHIN EASY EACH. WILL CONTINUE TO MONITOR.
--- NOTE | 2021-10-08 08:01 | NUR ---
WOUND CARE CONSULT: PT PRESENTS WITH LEFT ANKLE ULCER, PRESENT ON ADMISSION. PT EATING AT THIS TIME. NO DRAINAGE NOTED FROM LEFT ANKLE. DPM CONSULT CALLED TO DR PICKETT. RECOMMENDATIONS MADE FOR SKIN PROTECTION. DISCUSSED WITH NURSING STAFF. IN AGREEMENT WITH PLAN OF CARE. Addendum: 10/08/21 at 0803 by JHON FOWLER WNDNU CURRENT ISRAEL SCORE IS 18.
[2021-10-08] MEDS: PANTOPRAZOLE 40 MG TABLET.DR PO SCH (08:08)
[2021-10-08] MEDS: FAMOTIDINE (20 MG) 20 MG TABLET PO SCH (08:10)
[2021-10-08] MEDS: ASPIRIN EC 81 MG TABLET.DR PO SCH (08:10)
[2021-10-08] MEDS: LEVETIRACETAM (250 MG) 250 MG TABLET PO SCH ×2 (08:10→21:07)
[2021-10-08] MEDS: AMLODIPINE BESYLATE 5 MG TABLET PO SCH (08:10)
[2021-10-08] MEDS: GLUCERNA SHAKE 237 ML CAN PO SCH ×2 (08:11→17:19)
[2021-10-08] MEDS: LOSARTAN POTASSIUM 50 MG TABLET PO SCH (08:11)
[2021-10-08 08:22] VITALS: BP 165/68
[2021-10-08] MEDS: VANCOMYCIN HCL 0.75 GM in IV D5W 250 ML IV SCH ×2 (11:08→23:00)
[2021-10-08 16:14] VITALS: BP 134/56
--- NOTE | 2021-10-08 18:43 | NUR ---
RN CLOSING NOTES PATIENT IN BED, AWAKE, A/O X4, NO SIGNS OF ACUTE DISTRESS NOTED. REMAINS ON ROOM AIR, TOLERATING WELL. IV ACCESS ON RFA #20G, INTACT AND PATENT, SALINE LOCKED. ALL DUE MEDS GIVEN, TAKEN WELL. TREATMENT DONE TO LEFT ANKLE WOUND. OFFLOADED LEFT FOOT/ANKLE. SAFETY MEASURES MAINTAINED. BED IN LOWEST LOCKED POSITION, SR UP X2, CALL LIGHT PLACED WITHIN EASY REACH. WILL ENDORSE TO NEXT SHIFT FOR CONTINUITY OF CARE.
--- NOTE | 2021-10-08 19:30 | NUR ---
MS HORTON CLOSING NOTES RECEIVED PATIENT IN BED, AWAKE, A/O X4, YI SPEAKING. STABLE ON ROOM AIR, TOLERATING WELL. IV ACCESS ON RFA 20 GAUGE, INTACT AND PATENT, SALINE LOCKED. SAFETY PRECAUTIONS IN PLACE. BED IN LOWEST LOCKED POSITION, HOB ELEVATED, SIDE RAILS UP X2, AND CALL LIGHT AND TABLE WITHIN REACH. WILL CONTINUE WITH PLAN OF CARE. Addendum: 10/08/21 at 2039 by ANG ERAZO RN OPENING NOTE*
[2021-10-08 20:00] VITALS: BP 111/48
[2021-10-08] MEDS: ATORVASTATIN 10 MG TABLET PO SCH (21:07)
[2021-10-08] MEDS: ENOXAPARIN SODIUM 40 MG/0.4 ML DISP.SYRIN SQ SCH (21:07)
[2021-10-08] MEDS: INSULIN GLARGINE, 100 UNIT/ML CARTRIDGE SQ SCH (21:57)
--- NOTE | 2021-10-08 23:44 | NUR ---
RN NOTE VANCO TROUGH STILL PENDING FOR 0 IV VANCO. WILL ADMINISTER IV VANCO IF TROUGH IS <20 ONCE RESULT COMES IN.
--- NOTE | 2021-10-08 23:53 | NUR ---
RN NOTE VANCO TROUGH CAME BACK AT 26. ENRIQUE FROM PHARMACY MADE AWARE. IV VANCO HELD PER ORDER.
--- NOTE | 2021-10-09 01:06 | NUR ---
RN NOTE PT COMPLAINED OF PAIN 4/10 OF THE LEFT ANKLE. ADMINISTERED NORCO 5-325 MG FOR MODERATE PAIN ORDERED. WILL CONTINUE WITH [place] OF CARE.
[2021-10-09] MEDS: CEFEPIME 1 GM in IV D5W 50 ML IV SCH (01:57)
[2021-10-09 06:08] LABS: ALBUMIN 2.7 g/dL (3.4-5.0); BASOPHILS % (AUTO) 0.8 % (0.0-2.0); BILIRUBIN,TOTAL 0.3 mg/dL (0.2-1.0); CALCIUM, SERUM 9.5 mg/dL (8.5-10.1); EOSINOPHILS % (AUTO) 1.6 % (0.0-6.0); HEMATOCRIT 34 % (33-45); HEMOGLOBIN 11.3 g/dL (11.5-14.8); LYMPHOCYTES # (AUTO) 1.7 K/uL (0.8-4.8); LYMPHOCYTES % (AUTO) 36.9 % (20.0-44.0); MAGNESIUM 2.1 mg/dL (1.8-2.4); MEAN CORPUSCULAR HGB CONC 34 g/dl (31.0-36.0); MEAN CORPUSCULAR VOLUME 90 fL (82-100); MONOCYTES # (AUTO) 0.4 K/uL (0.1-1.30); MONOCYTES % (AUTO) 8.3 % (2.0-12.0); NEUTROPHILS # (AUTO) 2.4 K/uL (1.8-8.9); NEUTROPHILS % (AUTO) 52.4 % (43.0-81.0); PHOSPHORUS 3.5 mg/dL (2.5-4.9); PLATELET COUNT (AUTO) 307 K/uL (150-450); RED BLOOD CELL COUNT(AUTO) 3.71 MIL/uL (4.0-5.2); TOTAL PROTEIN, SERUM 7.5 g/dL (6.4-8.2); WHITE BLOOD COUNT (AUTO) 4.6 K/uL (4.3-11.0)
[2021-10-09] MEDS: BLOOD SUGAR DIAGNOSTIC 1 EACH STRIP IN SCH ×4 (06:30→21:03)
[2021-10-09] MEDS: INSULIN REGULAR, HUMAN 100 UNIT/ML 3 ML VIAL SQ PRN ×4 (06:32→21:13)
--- NOTE | 2021-10-09 06:35 | NUR ---
MS RN CLOSING NOTES PATIENT IN BED, AWAKE, A/O X4, TELUGU SPEAKING. STABLE ON ROOM AIR, TOLERATING WELL. NO SOB OR S/S OR RESPIRATORY DISTRESS. IV ACCESS ON RFA 20 GAUGE, INTACT AND PATENT, SALINE LOCKED. ALL NEEDS MET AT THIS TIME. SAFETY PRECAUTIONS IN PLACE AT ALL TIMES. BED IN LOWEST LOCKED POSITION, HOB ELEVATED, SIDE RAILS UP X2, AND CALL LIGHT AND TABLE WITHIN REACH. WILL ENDORSE TO ONCOMING NURSE FOR ROSANNA.
[2021-10-09 08:00] VITALS: BP 165/68
[2021-10-09] MEDS: FAMOTIDINE (20 MG) 20 MG TABLET PO SCH (09:30)
[2021-10-09] MEDS: LOSARTAN POTASSIUM 50 MG TABLET PO SCH (09:30)
[2021-10-09] MEDS: AMLODIPINE BESYLATE 5 MG TABLET PO SCH (09:31)
[2021-10-09] MEDS: LEVETIRACETAM (250 MG) 250 MG TABLET PO SCH ×2 (09:31→21:02)
[2021-10-09] MEDS: ASPIRIN EC 81 MG TABLET.DR PO SCH (09:31)
[2021-10-09] MEDS: PANTOPRAZOLE 40 MG TABLET.DR PO SCH (09:34)
[2021-10-09] MEDS: HYDROGEL DRESSING 90 GM TUBE TP SCH (09:42)
[2021-10-09] MEDS: GLUCERNA SHAKE 237 ML CAN PO SCH ×2 (09:42→17:51)
[2021-10-09] MEDS: VANCOMYCIN 1 GM in IV D5W 250 ML IV SCH (11:19)
[2021-10-09 16:00] VITALS: BP 134/58
--- NOTE | 2021-10-09 18:00 | NUR ---
received pt. in am alert and oriented x4.skin warm and dry.no complaints offered.vs stable.wound care done.
--- NOTE | 2021-10-09 19:35 | NUR ---
MS RN NOTES RECEIVED ON BED,A/O X3-4, BREATHING NORMAL,NOT IN ANY FORM OF DISTRESS,SALINE LOCK LEFT FORE ARM INTACT AND PATENT.ASSIST WITH ADL'S.FALL RISK,BED ON LOW POSITION AND LOCKED,BED ALARM TRIGGERED.CALL LIGHT IN REACH,NEEDS ANTICIPATED,
[2021-10-09 20:00] VITALS: BP 139/55
--- NOTE | 2021-10-09 21:00 | NUR ---
MS RN NOTES ACCU-CHECK BLOOD SUGAR CHECK 266,COVERED WITH HUMULIN R 6 UNITS,ALONG WITH LANTUS 10 UNITS SCHEDULED,REFUSED SNACKS AT THE MOMENT
[2021-10-09] MEDS: ATORVASTATIN 10 MG TABLET PO SCH (21:03)
[2021-10-09] MEDS: ENOXAPARIN SODIUM 40 MG/0.4 ML DISP.SYRIN SQ SCH (21:03)
[2021-10-09] MEDS: INSULIN GLARGINE, 100 UNIT/ML CARTRIDGE SQ SCH (21:11)
--- NOTE | 2021-10-10 01:00 | NUR ---
MS RN NOTES SLEEPING,KEPT WARM AND COMFORTABLE.
[2021-10-10] MEDS: CEFEPIME 1 GM in IV D5W 50 ML IV SCH (01:24)
--- NOTE | 2021-10-10 06:00 | NUR ---
MS RN NOTES ACCU-CHECK BLOOD SUGAR CHECK 218,COVERED WITH HUMULIN R 4 UNITS PER SLIDING SCALE.
[2021-10-10] MEDS: BLOOD SUGAR DIAGNOSTIC 1 EACH STRIP IN SCH ×4 (06:13→21:19)
[2021-10-10] MEDS: INSULIN REGULAR, HUMAN 100 UNIT/ML 3 ML VIAL SQ PRN ×4 (06:15→21:25)
--- NOTE | 2021-10-10 06:41 | NUR ---
MS RN NOTES MORNING CARE RENDERED BY CHRIST LESTER,NO N/V/D/ NOTED,IV ABX TOLERATED WELL.IN NO ACUTE DISTRESS.
--- NOTE | 2021-10-10 07:20 | NUR ---
RN OPENING NOTES RECEIVED PATIENT IN BED, AWAKE, VERBALLY RESPONSIVE, NO SIGNS OF ACUTE DISTRESS NOTED. ON ROOM AIR, BREATHING EVEN AND UNLABORED, NO SOB NOTED. WITH IV ACCESS ON RFA #20G, SALINE LOCKED, INTACT AND PATENT. NO C/O PAIN AT THIS TIME. SAFETY MEASURES IN PLACE. BED IN LOWEST LOCKED POSITION, SIDE RAILS UP, CALL LIGHT PLACED WITHIN EASY EACH. WILL CONTINUE TO MONITOR.
[2021-10-10] MEDS: PANTOPRAZOLE 40 MG TABLET.DR PO SCH (07:46)
[2021-10-10] MEDS: GLUCERNA SHAKE 237 ML CAN PO SCH ×2 (07:46→17:17)
[2021-10-10 08:10] VITALS: BP 144/63
[2021-10-10] MEDS: ASPIRIN EC 81 MG TABLET.DR PO SCH (08:11)
[2021-10-10] MEDS: FAMOTIDINE (20 MG) 20 MG TABLET PO SCH (08:11)
[2021-10-10] MEDS: LEVETIRACETAM (250 MG) 250 MG TABLET PO SCH ×2 (08:11→21:03)
[2021-10-10] MEDS: AMLODIPINE BESYLATE 5 MG TABLET PO SCH (08:12)
[2021-10-10] MEDS: LOSARTAN POTASSIUM 50 MG TABLET PO SCH (08:12)
[2021-10-10 08:14] LABS: CALCIUM, SERUM 9.3 mg/dL (8.5-10.1); CREATININE 1.2 mg/dL (0.6-1.3); POTASSIUM 4.4 mmol/L (3.5-5.1)
[2021-10-10] MEDS: HYDROGEL DRESSING 90 GM TUBE TP SCH (08:32)
[2021-10-10] MEDS: VANCOMYCIN 1 GM in IV D5W 250 ML IV SCH (11:14)
[2021-10-10 16:32] VITALS: BP 147/70
--- NOTE | 2021-10-10 18:49 | NUR ---
RN CLOSING NOTES PATIENT IN BED, AWAKE, A/O X4, NO SIGNS OF ACUTE DISTRESS NOTED. NO SIGNIFICANT CHANGE NOTED THIS SHIFT. FOR DISCHARGE PLANNING. ALL DUE MEDS GIVEN, TAKEN WELL. IV ABX GIVEN, NO A/R NOTED. SAFETY PRECAUTIONS OBSERVED. BED IN LOWEST LOCKED POSITION, SR UP, CALL LIGHT PLACED WITHIN EASY REACH. WILL ENDORSE TO NEXT SHIFT FOR CONTINUITY OF CARE.
--- NOTE | 2021-10-10 19:15 | NUR ---
MS RN OPENING NOTES RECEIVED PATIENT LAYING AWAKE IN BED. A/O X4. PATIENT WITH REGULAR AND UNLABORED BREATHING ON ROOM AIR TOLERATED WELL. NO SIGNS AND SYMPTOMS OF DISTRESS NOTED AT THIS TIME. NO COMPLAINS OF PAIN OR DISCOMFORT NOTED AT THIS TIME. IV ACCESS R HAND G #20 SL. IV ACCESS PATENT AND INTACT. SAFETY PRECAUTIONS ENFORCED WITH BED LOCKED AND AT LOWEST POSITION. SIDERAILS UP X2. CALL LIGHT WITHIN REACH AT ALL TIMES. WILL CONTINUE TO MONITOR PATIENT.
[2021-10-10] MEDS: ATORVASTATIN 10 MG TABLET PO SCH (21:03)
[2021-10-10] MEDS: ENOXAPARIN SODIUM 40 MG/0.4 ML DISP.SYRIN SQ SCH (21:04)
[2021-10-10] MEDS: INSULIN GLARGINE, 100 UNIT/ML CARTRIDGE SQ SCH (21:23)
[2021-10-11] MEDS: CEFEPIME 1 GM in IV D5W 50 ML IV SCH (01:00)
[2021-10-11] MEDS: BLOOD SUGAR DIAGNOSTIC 1 EACH STRIP IN SCH ×3 (06:30→16:58)
[2021-10-11] MEDS: INSULIN REGULAR, HUMAN 100 UNIT/ML 3 ML VIAL SQ PRN ×2 (06:33→17:12)
[2021-10-11 07:11] LABS: CALCIUM, SERUM 8.9 mg/dL (8.5-10.1); CREATININE 1.3 mg/dL (0.6-1.3); POTASSIUM 4.2 mmol/L (3.5-5.1)
--- NOTE | 2021-10-11 07:16 | NUR ---
MS RN CLOSING NOTES PATIENT STILL LAYING AWAKE IN BED. A/O X4. PATIENT WITH REGULAR AND UNLABORED BREATHING ON ROOM AIR TOLERATED WELL. NO SIGNS AND SYMPTOMS OF DISTRESS NOTED AT THIS TIME. NO COMPLAINS OF PAIN OR DISCOMFORT NOTED AT THIS TIME. IV ACCESS R HAND G #20 SL. IV ACCESS PATENT AND INTACT. SAFETY PRECAUTIONS ENFORCED WITH BED LOCKED AND AT LOWEST POSITION. SIDERAILS UP X2. CALL LIGHT WITHIN REACH AT ALL TIMES. WILL ENDORSE CONTINUITY OF CARE TO DAY SHIFT NURSE.
--- NOTE | 2021-10-11 07:30 | NUR ---
MS RN OPENING NOTES RECEIVED PATIENT AWAKE IN BED. A/O X4. PATIENT WITH REGULAR AND UNLABORED BREATHING ON ROOM AIR TOLERATING WELL. NO SIGNS AND SYMPTOMS OF DISTRESS NOTED AT THIS TIME. NO COMPLAINS OF PAIN OR DISCOMFORT. IV ACCESS R HAND G #20 SL. IV ACCESS PATENT AND INTACT. SAFETY PRECAUTIONS IN PLACE; BED IN LOW POSITION AND LOCKED, RAILS UP X2, CALL LIGHT WITHIN REACH. WILL CONTINUE TO MONITOR PATIENT.
[2021-10-11 08:14] VITALS: BP 153/62
[2021-10-11] MEDS: ASPIRIN EC 81 MG TABLET.DR PO SCH (08:28)
[2021-10-11] MEDS: AMLODIPINE BESYLATE 5 MG TABLET PO SCH (08:28)
[2021-10-11] MEDS: FAMOTIDINE (20 MG) 20 MG TABLET PO SCH (08:28)
[2021-10-11] MEDS: PANTOPRAZOLE 40 MG TABLET.DR PO SCH (08:28)
[2021-10-11] MEDS: LOSARTAN POTASSIUM 50 MG TABLET PO SCH (08:29)
[2021-10-11] MEDS: LEVETIRACETAM (250 MG) 250 MG TABLET PO SCH (08:29)
[2021-10-11] MEDS: GLUCERNA SHAKE 237 ML CAN PO SCH ×2 (08:37→16:09)
[2021-10-11] MEDS: HYDROGEL DRESSING 90 GM TUBE TP SCH (08:38)
[2021-10-11] MEDS: VANCOMYCIN 1 GM in IV D5W 250 ML IV SCH (11:37)
[2021-10-11 15:52] VITALS: BP 137/72
--- NOTE | 2021-10-11 17:57 | NUR ---
MR REBEAMER NOTES PATIENT DISCHARGED HOME IN MEDICALLY STABLE CONDITION. PATIENT A.O X4 ABLE TO MAKE NEEDS KNOWN. DISCHARGE PAPERWORK READY AND PHYSICIAN INSTRUCTIONS PROVIDED TO PATIENT; PATIENT VERBALIZED UNDERSTANDING AND PAPERS SIGNED. BELONGINGS ACCOUNTED FOR AND FORM SIGNED WELL. IV ACCESS REMOVED PRIOR TO PATIENT LEAVING THE UNIT. WRISTBANDS REMOVED WELL. PATIENT LEFT THE UNIT VIA WHEELCHAIR ACCOMPANIED BY RN AND LOADER ENGINEER. LEFT THE HOSPITAL IN A PRIVATE CAR.
== END 2021-10-11 18:35 | disposition home health service (06) | DRG 638 ==
LOC: ER 19:46 → MED 10-07 00:17
PROVIDERS: ADMIT Registered Nurse
DX: E11.622 Type 2 diabetes mellitus with other skin ulcer (principal); L97.329 Non-pressure chronic ulcer of left ankle with unspecified severity; E11.40 Type 2 diabetes mellitus with diabetic neuropathy, unspecified; K21.9 Gastro-esophageal reflux disease without esophagitis; Z20.822 Contact with and (suspected) exposure to COVID-19; I10 Essential (primary) hypertension; E78.5 Hyperlipidemia, unspecified; F03.90 Unspecified dementia, unspecified severity, without behavioral disturbance, psychotic disturbance, mood disturbance, and anxiety; Z79.4 Long term (current) use of insulin; Z79.899 Other long term (current) drug therapy; Z96.649 Presence of unspecified artificial hip joint; Z83.3 Family history of diabetes mellitus; Z98.890 Other specified postprocedural states
CPT/HCPCS: 36415; 73610-TC; 80048-TC; 80053-TC; 80061-TC; 80202-TC; 82962-TC; 83735-TC; 84100-TC; 84443-TC; 85025-TC; 85652-TC; 86140-TC; 87040-TC; 87070-TC; 87081-TC; 93926-TC; 97116-TC; 97530-TC; A6248; C9803; G0378; J0692; J1650; J1815; J3370; J7050; J7060; Q9967

== ENCOUNTER 2021-10-12 15:41 | Emergency (ER) | payer MEDICARE ==
[~2021-10-12] VITALS: Ht 165.1 cm; Wt 57.2 kg
--- NOTE | 2021-10-12 15:53 | NUR ---
SENT TO ER BED 9. RA FR ANAMARIA BOND C/O PAIN ON LEFT HIP AND LEFT ANKLE S/P GLF YESTERDAY MORNING AND TODAY MORNING, -LOC, -BLOOD THINNER
--- NOTE | 2021-10-12 16:29 | NUR ---
CALLED [facility] AND SET UP BLS TRANSPORT TO [facility] ETA 1730
--- NOTE | 2021-10-12 17:49 | NUR ---
Patient discharged to home with daughter Renee Trammell in stable condition. Written and verbal after care instructions given. Patient verbalizes understanding of instruction. Walker provided.
[2021-10-12 17:50] VITALS: BP 116/63
--- NOTE | 2021-10-12 17:50 | NUR ---
PT PROVIDED W WOUND CARE. MEDICALLY CLEARED BY DR CAMP. WAS PROVIDED W A WALKER. GAIT TRAINING DONE. PT'S FAMILY CAME TO COPYIST PATIENT. D/C HOME IN STABLE CONDITION.
== END 2021-10-12 17:50 | disposition home or self-care (01) ==
LOC: ER 15:45
DX: M25.372 Other instability, left ankle (principal); I10 Essential (primary) hypertension; E11.9 Type 2 diabetes mellitus without complications; Z87.81 Personal history of (healed) traumatic fracture; Z79.1 Long term (current) use of non-steroidal anti-inflammatories (NSAID); Z79.4 Long term (current) use of insulin; Z79.82 Long term (current) use of aspirin; Z79.899 Other long term (current) drug therapy; W18.30XA Fall on same level, unspecified, initial encounter; Y93.89 Activity, other specified; Y92.89 Other specified places as the place of occurrence of the external cause; Y99.8 Other external cause status

== ENCOUNTER 2021-11-14 15:52 | Inpatient (IN) | payer MEDICARE ==
[~2021-11-14] VITALS: Ht 157.5 cm; Wt 56.7 kg
--- NOTE | 2021-11-14 16:25 | NUR ---
SALINE LOCK ESTABLISHED, BLOOD DRAWN AND SENT TO LAB
--- NOTE | 2021-11-14 16:37 | NUR ---
PRAFUL FROM HOME TO ER BED 13. AAOX3. NOT IN RESP DISTRESS. BROUGHT IN D/T HAVING A FALL BECAUSE OF SHE HAS A NON HEALING WOUND ON HER L ANKLE. PT REPORTS HITTING HER HEAD. NO BLOOD THINNER USE. PT WAS ALOS REPORTED WITH BLOOD SUGAR WHICH READS "HI". AT THE BEDSIDE FOR EVAL. ORDERS RECEIVED
[2021-11-14 16:52] LABS: BASOPHILS % (AUTO) 0.8 % (0.0-2.0); EOSINOPHILS % (AUTO) 0.7 % (0.0-6.0); HEMATOCRIT 37 % (33-45); HEMOGLOBIN 12.8 g/dL (11.5-14.8); LYMPHOCYTES # (AUTO) 1.5 K/uL (0.8-4.8); LYMPHOCYTES % (AUTO) 36.8 % (20.0-44.0); MEAN CORPUSCULAR HGB CONC 34 g/dl (31.0-36.0); MEAN CORPUSCULAR VOLUME 90 fL (82-100); MONOCYTES # (AUTO) 0.2 K/uL (0.1-1.30); MONOCYTES % (AUTO) 5.7 % (2.0-12.0); NEUTROPHILS # (AUTO) 2.3 K/uL (1.8-8.9); PLATELET COUNT (AUTO) 216 K/uL (150-450); RED BLOOD CELL COUNT(AUTO) 4.15 MIL/uL (4.0-5.2); WHITE BLOOD COUNT (AUTO) 4.1 K/uL (4.3-11.0)
[2021-11-14 17:22] LABS: CALCIUM, SERUM 9.9 mg/dL (8.5-10.1); CARBON DIOXIDE 29 mmol/L (21-32); CHLORIDE 100 mmol/L (98-107); CREATININE 1.2 mg/dL (0.6-1.3); POTASSIUM 3.7 mmol/L (3.5-5.1); SODIUM SERUM 139 mmol/L (136-145); UREA NITROGEN, BLOOD 17 mg/dL (7-18)
[2021-11-14 17:23] LABS: GLUCOSE 471 mg/dL (74-106)
[2021-11-14] MEDS ORDERED: hydrALAZINE HCL IV 20 MG VIAL ONE (17:45)
[2021-11-14] MEDS ORDERED: VANCOMYCIN 1 GM in IV D5W 250 ML IV ONE (18:00)
[2021-11-14] MEDS ORDERED: hydrALAZINE HCL IV 20 MG VIAL IV ONE (18:00)
--- NOTE | 2021-11-14 18:02 | NUR ---
COVID SWAB DONE AND SENT TO LAB
--- NOTE | 2021-11-14 18:28 | NUR ---
MOVE SHEET SUBMITTED AND CALLED FOR TELE BED.
[2021-11-14] MEDS ORDERED: INSULIN REGULAR, HUMAN 100 UNIT/ML 10 ML VIAL SQ ONE (18:30)
[2021-11-14] MEDS ORDERED: INSULIN REGULAR, HUMAN 100 UNIT/ML 10 ML VIAL ONE (18:49)
--- NOTE | 2021-11-14 19:50 | NUR ---
SPOKE TO BETTINA, MANUSCRIPTS ARCHIVIST AND REC'D VERBAL ZUTH TO KEEP THE PATIENT
--- NOTE | 2021-11-14 20:20 | NUR ---
RECEIVED REPORT FROM POLE CLIMBER FOR ROSANNA
--- NOTE | 2021-11-14 20:20 | NUR ---
PT IS RESTING COMFORTABLY IN BED, DENIES ANY PAIN AT THIS TIME. PROVIDED HER WITH WARM BLAKETS. WILL CONTINUE TO MONITOR.
[2021-11-14 20:25] LABS: BILIRUBIN,DIRECT 0.1 mg/dL (0.0-0.2); BILIRUBIN,TOTAL 0.4 mg/dL (0.2-1.0)
[2021-11-14] MEDS ORDERED: ONDANSETRON HCL/PF 4 MG/2 ML VIAL IVP PRN (20:30)
[2021-11-14] MEDS ORDERED: *INSULIN REGULAR(HUMULIN R)HUM 100 UNIT/ML VIAL SQ PRN (20:30)
[2021-11-14] MEDS ORDERED: Z GUARD REMEDY 4 OZ OINT TP PRN (20:30)
[2021-11-14] MEDS ORDERED: DEXTROSE 50%-WATER 50 ML DISP.SYRIN IV PRN (20:30)
[2021-11-14] MEDS ORDERED: MAG HYDROX/AL HYDROX/SIMETH 30 ML UDC PO PRN (20:30)
[2021-11-14] MEDS ORDERED: INSULIN REGULAR, HUMAN 100 UNIT/ML 3 ML VIAL SQ PRN (20:30)
[2021-11-14] MEDS ORDERED: MAGNESIUM HYDROXIDE 30 ML UDC PO PRN (20:30)
[2021-11-14] MEDS ORDERED: ACETAMINOPHEN 325 MG TABLET PO PRN ×2 (20:30)
--- NOTE | 2021-11-14 20:31 | NUR ---
PAGED DR CUEVAS, PATIENT CASE COORDINATOR ORTHO
--- NOTE | 2021-11-14 20:36 | NUR ---
LACTIC ACID 2.4
[2021-11-14] MEDS: INSULIN GLARGINE, 100 UNIT/ML CARTRIDGE SQ SCH (22:00)
--- NOTE | 2021-11-14 22:15 | NUR ---
REPORT GIVEN TO SOL SALEH ON THIRD FLOOR
[2021-11-14 22:30] VITALS: BP 135/64
--- NOTE | 2021-11-14 22:30 | NUR ---
WINDOW SHADE CLOTH SEWER NOTE PATIENT WAS ADMITTED TO UNIT VIA GURNEY FROM ER. PATIENT IS IN ROOM AWAKE, A/0 X4. PATIENT SPEAKS HEBREW ONLY. V/S TAKEN AND RECORDED. NO C/O OF PAIN/DISCOMFORT NOTED AT THIS TIME. NO ACUTE RESPIRATORY DISTRESS OR SHORTNESS OF BREATH NOTED. IV ACCESS RAC #20G INTACT, PATENT AND FLUSHING WELL. SKIN ASSESSMENT DONE. WOUND CARE CONSULT ORDERED. FALL AND SAFETY MEASURES IN PLACE, BED ALARM ON, BED IN LOW AND LOCK POSITION, CALL LIGHT AND TABLE WITHIN EASY REACH, SIDE RAILS UP X2. ORIENTED PATIENT TO ROOM SET UP AND SHOWED PATIENT HOW TO USE CALL LIGHT. WILL CONTINUE TO MONITOR THROUGHOUT THE SHIFT.
--- NOTE | 2021-11-14 22:34 | NUR ---
TRANSFERRED TO 311 IN STABLE CONDITION
--- NOTE | 2021-11-14 22:35 | NUR ---
WINDOWS SYSTEMS ENGINEER NOTE PATIENT WAS ADMITTED TO UNIT VIA GURNEY FROM ER. PATIENT IS IN ROOM AWAKE, A/0 X4. PATIENT SPEAKS TURKISH ONLY. V/S TAKEN AND RECORDED. NO C/O OF PAIN/DISCOMFORT NOTED AT THIS TIME. NO ACUTE RESPIRATORY DISTRESS OR SHORTNESS OF BREATH NOTED. IV ACCESS RAC #20G INTACT, PATENT AND FLUSHING WELL. SKIN ASSESSMENT DONE. WOUND CARE CONSULT ORDERED. FALL AND SAFETY MEASURES IN PLACE, BED ALARM ON, BED IN LOW AND LOCK POSITION, CALL LIGHT AND TABLE WITHIN EASY REACH, SIDE RAILS UP X2. ORIENTED PATIENT TO ROOM SET UP AND SHOWED PATIENT HOW TO USE CALL LIGHT. WILL CONTINUE TO MONITOR THROUGHOUT THE SHIFT.
[2021-11-14] MEDS: ATORVASTATIN 10 MG TABLET PO SCH (22:43)
[2021-11-14] MEDS: LEVETIRACETAM (250 MG) 250 MG TABLET PO SCH (22:46)
[2021-11-14 23:00] VITALS: BP 135/64
[2021-11-14] MEDS: BLOOD SUGAR DIAGNOSTIC 1 EACH STRIP VI SCH (23:02)
--- NOTE | 2021-11-14 23:20 | NUR ---
MS RN NOTE: PATIENT BLOOD SUGAR WAS 54MG/DL. DEXTROSE 50% SYRINGE 50ML GIVEN ORDERED. RECHECKED AFTER 20MINS AND BLOOD SUGAR WENT UP TO 234MG/DL. LANTUS AND REGULAR INSULIN HELD AT THIS TIME. MD NOTIFIED AND CHARGE NURSE AWARE. WILL CONTINUE TO MONITOR FOR HYPOGLYCEMIA AND HYPERGLYCEMIA.
[2021-11-15 05:57] LABS: BASOPHILS % (AUTO) 0.4 % (0.0-2.0); EOSINOPHILS % (AUTO) 0.3 % (0.0-6.0); HEMATOCRIT 37 % (33-45); HEMOGLOBIN 12.5 g/dL (11.5-14.8); LYMPHOCYTES # (AUTO) 1.2 K/uL (0.8-4.8); LYMPHOCYTES % (AUTO) 21.9 % (20.0-44.0); MEAN CORPUSCULAR HGB CONC 34 g/dl (31.0-36.0); MEAN CORPUSCULAR VOLUME 91 fL (82-100); MONOCYTES # (AUTO) 0.3 K/uL (0.1-1.30); MONOCYTES % (AUTO) 5.7 % (2.0-12.0); NEUTROPHILS % (AUTO) 71.7 % (43.0-81.0); PLATELET COUNT (AUTO) 207 K/uL (150-450); RED BLOOD CELL COUNT(AUTO) 4.09 MIL/uL (4.0-5.2); WHITE BLOOD COUNT (AUTO) 5.5 K/uL (4.3-11.0)
[2021-11-15] MEDS: BLOOD SUGAR DIAGNOSTIC 1 EACH STRIP VI SCH (06:38)
--- NOTE | 2021-11-15 06:42 | NUR ---
MS RN NOTE PATIENT BLOOD SUGAR WAS 402MG/DL, 15 UNITS OF REGULAR INSULIN COVERAGE GIVEN WITNESSED BY ANOTHER RN. PATIENT IS AWAKE AND ALERT. NOTIFIED DR. CARLSON REGARDING PATIENT'S BLOOD SUGAR RESULT AND PATIENT IS ON MODERATE SLIDING SCALE. AWAITING FOR RESPONSE. CHARGE NURSE MARION JONES. WILL ENDORSE TO AM SHIFT FOR CONTINUITY OF CARE.
[2021-11-15 06:50] LABS: CALCIUM, SERUM 9.7 mg/dL (8.5-10.1); CREATININE 1.1 mg/dL (0.6-1.3); MAGNESIUM 1.9 mg/dL (1.8-2.4); PHOSPHORUS 3.5 mg/dL (2.5-4.9); POTASSIUM 4.2 mmol/L (3.5-5.1)
--- NOTE | 2021-11-15 07:02 | NUR ---
MS RN CLOSING NOTE PATIENT IN BED AWAKE, ALERT AND ORIENTED X4. PATIENT SPEAKS KINYARWANDA ONLY. TOLERATING WELL ON ROOM AIR WITH NO S/S OF RESPIRATORY DISTRESS. NO COMPLAINTS OF PAIN OR DISCOMFORT, BREATHING UNLABORED. WITH IV ACCESS ON RAC PATENT, INTACT, AND FLUSHING WELL. SAFETY PRECAUTIONS IN PLACE: BED IN LOWEST LOCKED POSITION, SIDE RAILS UP X 3, CALL LIGHT WITHIN REACH. WILL ENDORSE TO AM SHIFT FOR CONTINUITY OF CARE.
--- NOTE | 2021-11-15 07:45 | NUR ---
RN NOTE Received critical value from Radha from lab, blood glucose is 385. Rechecked BS: 316. Patient was given 15 units of Insulin at 0641. Dr. Garcia notified, no new orders given.
--- NOTE | 2021-11-15 07:47 | NUR ---
WOUND CARE CONSULT: PT PRESENTS WITH NECROTIC WOUND TO LEFT ANKLE, PRESENT ON ADMISSION. NO DRAINAGE NOTED. RECOMMEND DPM CONSULT. DR PICKETT NOTIFIED. IN AGREEMENT WITH PLAN OF CARE.
[2021-11-15 08:00] VITALS: BP 133/61
--- NOTE | 2021-11-15 08:06 | NUR ---
MS RN OPENING NOTE Patient in bed, awake. A/O x 3-4, able to make needs known. On room air, breathing evenly and unlabored. No SOB or s/s of distress noted. IV access on RAC #20, intact and patent. Safety precautions in place: bed in low, locked position; siderails up x 2; call light within reach. Will continue to monitor.
--- NOTE | 2021-11-15 08:07 | NUR ---
RN NOTE Dr. Mortensen ordered to changed sliding scale from moderate to aggressive q4h.
[2021-11-15] MEDS: ASPIRIN EC 81 MG TABLET.DR PO SCH (08:39)
[2021-11-15] MEDS: LEVETIRACETAM (250 MG) 250 MG TABLET PO SCH ×2 (08:39→21:24)
[2021-11-15] MEDS: FAMOTIDINE (20 MG) 20 MG TABLET PO SCH (08:39)
[2021-11-15] MEDS: AMLODIPINE BESYLATE 5 MG TABLET PO SCH (08:39)
[2021-11-15] MEDS: LOSARTAN POTASSIUM 50 MG TABLET PO SCH (08:40)
[2021-11-15] MEDS ORDERED: DEXTROSE 50%-WATER 50 ML DISP.SYRIN IV PRN (09:00)
[2021-11-15] MEDS: BLOOD SUGAR DIAGNOSTIC 1 EACH STRIP IN SCH ×4 (09:37→21:21)
[2021-11-15] MEDS: INSULIN REGULAR, HUMAN 100 UNIT/ML 3 ML VIAL SQ PRN ×2 (09:39→21:23)
[2021-11-15 16:00] VITALS: BP 129/67
[2021-11-15] MEDS: VANCOMYCIN 1.25 GM in IV D5W 250 ML IV SCH (17:32)
--- NOTE | 2021-11-15 19:08 | NUR ---
MS RN CLOSING NOTE Patient in bed, resting. A/O x 3-4, able to make needs known. stable on room air, breathing evenly and unlabored. No SOB or s/s of distress noted. IV access on RAC #20, intact and patent. Due meds given. All needs attended to. Safety precautions maintained: bed in low, locked position; siderails up x 2; call light within reach. Will endorse to chief construction inspector nurse for ROSANNA.
[2021-11-15] MEDS: INSULIN GLARGINE, 100 UNIT/ML CARTRIDGE SQ SCH (21:22)
[2021-11-15] MEDS: ATORVASTATIN 10 MG TABLET PO SCH (21:24)
[2021-11-16] MEDS: BLOOD SUGAR DIAGNOSTIC 1 EACH STRIP IN SCH ×6 (01:03→21:03)
[2021-11-16 07:09] LABS: CALCIUM, SERUM 9.3 mg/dL (8.5-10.1); CREATININE 1.2 mg/dL (0.6-1.3); POTASSIUM 3.7 mmol/L (3.5-5.1)
--- NOTE | 2021-11-16 07:30 | NUR ---
RN MS NOTES PT IN BED, AWAKE, ALERT AND ORIENTED, DENIES PAIN, NOT IN DISTRESS, CALL LIGHT WITHIN REACH, KEPT WARM AND COMFORTABLE IN BED.
[2021-11-16 08:00] VITALS: BP 126/71
[2021-11-16 08:54] LABS: BASOPHILS % (AUTO) 0.5 % (0.0-2.0); EOSINOPHILS % (AUTO) 1.5 % (0.0-6.0); HEMATOCRIT 33 % (33-45); HEMOGLOBIN 11.5 g/dL (11.5-14.8); LYMPHOCYTES # (AUTO) 2.7 K/uL (0.8-4.8); LYMPHOCYTES % (AUTO) 46.4 % (20.0-44.0); MEAN CORPUSCULAR HGB CONC 35 g/dl (31.0-36.0); MEAN CORPUSCULAR VOLUME 90 fL (82-100); MONOCYTES # (AUTO) 0.5 K/uL (0.1-1.30); NEUTROPHILS # (AUTO) 2.5 K/uL (1.8-8.9); NEUTROPHILS % (AUTO) 43.6 % (43.0-81.0); PLATELET COUNT (AUTO) 208 K/uL (150-450); WHITE BLOOD COUNT (AUTO) 5.7 K/uL (4.3-11.0)
[2021-11-16] MEDS: LEVETIRACETAM (250 MG) 250 MG TABLET PO SCH ×2 (09:29→20:54)
[2021-11-16] MEDS: ASPIRIN EC 81 MG TABLET.DR PO SCH (09:29)
[2021-11-16] MEDS: AMLODIPINE BESYLATE 5 MG TABLET PO SCH (09:29)
[2021-11-16] MEDS: VANCOMYCIN 1.25 GM in IV D5W 250 ML IV SCH (09:29)
[2021-11-16] MEDS: FAMOTIDINE (20 MG) 20 MG TABLET PO SCH (09:29)
[2021-11-16] MEDS: LOSARTAN POTASSIUM 50 MG TABLET PO SCH (09:30)
[2021-11-16] MEDS: THERAHONEY GEL 1.5 OZ TUBE TP SCH (09:37)
[2021-11-16] MEDS: INSULIN REGULAR, HUMAN 100 UNIT/ML 3 ML VIAL SQ PRN ×4 (09:42→21:10)
--- NOTE | 2021-11-16 13:00 | NUR ---
RN MS NOTES PT IN BED, RESTING, PT SEEN BY DR. TA, PLAN OF CARE DISCUSSED WITH PT. NEEDS ATTENDED.
[2021-11-16 16:00] VITALS: BP 124/61
--- NOTE | 2021-11-16 18:38 | NUR ---
RN MS NOTES PT IN BED, AWAKE, ALERT AND ORIENTED, WATCHING TV, DENIES PAIN, NOT IN DISTRESS, SEEN BY DR. TA TODAY, PLAN OF CARE DISCUSSED WITH PT, BLOOD SUGAR CHECKED, INSULIN GIVEN PER SLIDING SCALE ORDERED, ALL NEEDS ATTENDED.
--- NOTE | 2021-11-16 19:30 | NUR ---
MS RN OPENING NOTES RECEIVED PATIENT LYING IN BED AWAKE. A/O X4. NO C/O PAIN OR DISCOMFORT AT THIS TIME. BREATHING EVEN AND UNLABORED. STABLE ON ROOM AIR. HAS RIGHT AC IV ACCESS #20G AND SALINE LOCKED. DRESSING INTACT. NO S/S OF INFILTRATION NOTED. WOUND DRESSING CHECKED. SAFETY PRECAUTIONS IN PLACED. WILL CONTINUE PLAN OF CARE.
[2021-11-16 20:00] VITALS: BP 158/70
[2021-11-16 20:30] VITALS: BP 140/72
[2021-11-16] MEDS: ATORVASTATIN 10 MG TABLET PO SCH (21:03)
[2021-11-16] MEDS: INSULIN GLARGINE, 100 UNIT/ML CARTRIDGE SQ SCH (21:09)
[2021-11-16 21:19] VITALS: BP 158/70
[2021-11-17] MEDS: INSULIN REGULAR, HUMAN 100 UNIT/ML 3 ML VIAL SQ PRN ×4 (00:42→21:26)
[2021-11-17] MEDS: BLOOD SUGAR DIAGNOSTIC 1 EACH STRIP IN SCH ×6 (00:44→21:21)
--- NOTE | 2021-11-17 04:50 | NUR ---
MS RN NOTES ACCU-CHECK DONE. PATIENT BLOOD SUGAR WAS 57. GAVE ORANGE JUICE. RECHECKED AFTER 20 MINS, INCREASED TO 64. ADVISED TO DRINK MORE FLUIDS AND EAT HER BREAKFAST.
[2021-11-17 07:08] LABS: CREATININE 1.2 mg/dL (0.6-1.3); POTASSIUM 3.6 mmol/L (3.5-5.1)
--- NOTE | 2021-11-17 07:12 | NUR ---
MS RN CLOSING NOTES PATIENT LYING IN BED ASLEEP. EASY TO AROUSE. A/O X3. NO SOB OR NOTED. NOT IN APPARENT DISTRESS. ABDOMEN SOFT AND NON-TENDER. HAS RIGHT AC IV ACCESS #20G AND SALINE LOCKED. INTACT, PATENT AND FLUSHING. PERICARE RENDERED. KEPT DRY AND COMFORTABLE. ALL NEEDS ATTENDED. SAFETY PRECAUTIONS IN PLACED: BED LOW AND LOCKED, SIDE RAILS UP X2, CALL LIGHT WITHIN REACH.
--- NOTE | 2021-11-17 07:30 | NUR ---
RN MS NOTES PT IN BED, AWAKE, ALERT AND ORIENTED, DENIES PAIN, NOT IN DISTRESS, CALL LIGHT WITHIN REACH, KEPT WARM AND COMFORTABLE IN BED.
[2021-11-17 08:00] VITALS: BP 137/53
[2021-11-17] MEDS: VANCOMYCIN 1.25 GM in IV D5W 250 ML IV SCH (09:00)
--- NOTE | 2021-11-17 09:00 | NUR ---
RN MS NOTES VANCO 1.25 GM IV NOT GIVEN, VANCO THROUGH IS 23, PHARMACY WILL ADJUST DOSE.
[2021-11-17] MEDS: LOSARTAN POTASSIUM 50 MG TABLET PO SCH (09:10)
[2021-11-17] MEDS: ASPIRIN EC 81 MG TABLET.DR PO SCH (09:11)
[2021-11-17] MEDS: AMLODIPINE BESYLATE 5 MG TABLET PO SCH (09:11)
[2021-11-17] MEDS: LEVETIRACETAM (250 MG) 250 MG TABLET PO SCH ×2 (09:11→21:12)
[2021-11-17] MEDS: FAMOTIDINE (20 MG) 20 MG TABLET PO SCH (09:11)
[2021-11-17] MEDS: THERAHONEY GEL 1.5 OZ TUBE TP SCH (09:11)
[2021-11-17] MEDS ORDERED: VANCOMYCIN 1 GM in IV D5W 250 ML IV SCH (14:00)
[2021-11-17 16:00] VITALS: BP 115/53
--- NOTE | 2021-11-17 18:30 | NUR ---
RN MS NOTES PT IN BED, AWAKE, ALERT AND ORIENTED, NO COMPLAINT AT THIS TIME, BLOOD SUGAR CHECKED, INSULIN GIVEN PER SLIDING SCALE ORDERED, PM CARE PROVIDED, ALL NEEDS ATTENDED.
--- NOTE | 2021-11-17 19:30 | NUR ---
RN OPENING NOTES RECEIVED PT IN BED, AWAKE. AOx3, GE[place]GIAN SPEAKING WITH MOMENTS OF CONFUSION. ON RA AND TOLERATING WELL. NO SOB NOTED. NO S/SX OF RESPIRATORY DISTRESS NOTED. IV ACCESS IN RFA #20G. Addendum: 11/17/21 at 2225 by SAMANTHA LEE RN CONTINUATION: IV IS INTACT, PATENT, AND FLUSHING WELL. SAFETY PRECAUTIONS IN PLACE: BED IN LOWEST, LOCKED POSITION, SIDERAILS UPx2, AND BRAKES ON. TABLE AND CALL LIGHT WITHIN REACH. WILL CONTINUE TO MONITOR.
[2021-11-17 20:00] VITALS: BP 140/55
[2021-11-17] MEDS: ATORVASTATIN 10 MG TABLET PO SCH (21:12)
[2021-11-17] MEDS: INSULIN GLARGINE, 100 UNIT/ML CARTRIDGE SQ SCH (21:22)
[2021-11-18] MEDS: BLOOD SUGAR DIAGNOSTIC 1 EACH STRIP IN SCH ×6 (01:08→23:17)
[2021-11-18] MEDS: INSULIN REGULAR, HUMAN 100 UNIT/ML 3 ML VIAL SQ PRN ×4 (01:09→23:37)
--- NOTE | 2021-11-18 06:42 | NUR ---
RN CLOSING NOTES PT IN BED, ASLEEP, AWAKENS TO VERBAL STIMULI. AOx3, FAROESE SPEAKING WITH MOMENTS OF CONFUSION. ON RA AND TOLERATING WELL. NO SOB NOTED. NO S/SX OF RESPIRATORY DISTRESS NOTED. IV ACCESS IN RFA #20G.IV IS INTACT, PATENT, AND FLUSHING WELL. ALL NEEDS MET. PT KEPT CLEAN AND DRY. SAFETY PRECAUTIONS IN PLACE: BED IN LOWEST, LOCKED POSITION, SIDERAILS UPx2, AND BRAKES ON. TABLE AND CALL LIGHT WITHIN REACH. WILL ENDORSE TO ONCOMING SHIFT FOR ROSANNA.
[2021-11-18 06:53] LABS: CALCIUM, SERUM 8.9 mg/dL (8.5-10.1); CREATININE 1.1 mg/dL (0.6-1.3); POTASSIUM 3.7 mmol/L (3.5-5.1)
[2021-11-18 08:00] VITALS: BP 134/75
[2021-11-18] MEDS: AMLODIPINE BESYLATE 5 MG TABLET PO SCH (09:00)
[2021-11-18] MEDS: ASPIRIN EC 81 MG TABLET.DR PO SCH (09:00)
[2021-11-18] MEDS: LEVETIRACETAM (250 MG) 250 MG TABLET PO SCH ×2 (09:00→23:18)
[2021-11-18] MEDS: FAMOTIDINE (20 MG) 20 MG TABLET PO SCH (09:01)
[2021-11-18] MEDS: LOSARTAN POTASSIUM 50 MG TABLET PO SCH (09:01)
[2021-11-18] MEDS: THERAHONEY GEL 1.5 OZ TUBE TP SCH (09:01)
--- NOTE | 2021-11-18 09:09 | NUR ---
IV ACCESS ON RIGHT FA PULLED OUT. PATIENT REFUSED IV ACCESS AT THIS TIME. WILL TRY AGAIN LATER.
[2021-11-18] MEDS: DOXYCYCLINE HYCLATE (100 MG) 100 MG TABLET PO SCH ×2 (13:12→23:17)
[2021-11-18] MEDS ORDERED: DOXY100T2 PO (14:21)
[2021-11-18] MEDS ORDERED: ONDANSETRON 4 MG TAB.RAPDIS PO PRN (15:00)
[2021-11-18 16:00] VITALS: BP 154/66
--- NOTE | 2021-11-18 17:04 | NUR ---
PATIENT'S BLOOD SUGAR IS 52, PATIENT IS ALERT AND ORIENTEDX2-3, NO CHANGE IN LEVEL OF CONSCIOUSNESS. A GLASS OF ORANGE JUICE GIVEN TO THE PATIENT AND DINNER. WILL MONITOR AND RE-CHECK BLOOD SUGAR OF THE PATIENT
--- NOTE | 2021-11-18 17:39 | NUR ---
BLOOD SUGAR RE-CHECKED IS AT 74. PATIENT IS OKAY. NO S/S OF HYPOGLYCEMIA NOTED. PATIENT IS COMFORTABLE AT THIS TIME.
--- NOTE | 2021-11-18 19:45 | NUR ---
MS RN NOTE PATIENT IN BED AWAKE. A/OX3. NO S/S OF DISTRESS, BREATHING ON RM AIR. NO IV ACCESS; DAY SHIFT NURSE STATED MD WAS MADE AWARE. SAFETY MEASURES IN PLACE: BED AT LOWEST POSITION, LOCKED, RAILS UP X3, CALL DYER WITHIN REACH. WILL CONTINUE TO MONITOR PATIENT.
[2021-11-18 20:15] VITALS: BP 158/93
[2021-11-18 20:30] VITALS: BP 173/71
[2021-11-18] MEDS: ATORVASTATIN 10 MG TABLET PO SCH (23:18)
[2021-11-18] MEDS: INSULIN GLARGINE, 100 UNIT/ML CARTRIDGE SQ SCH (23:28)
--- NOTE | 2021-11-18 23:29 | NUR ---
RN NOTE MY CHARGE NURSE HAD ME ATTEND TO AN URGENT MATTER THAT DISALLOWED ME FROM GIVING MEDS AT CORRECT TIME. PATIENT'S CURRENT BS LEVEL IS 149. THIS WAS SUPPOSED TO BE CHECKED AT 2100. PATIENT HAS ANOTHER ACCU DUE AT 0100, 11/19. PATIENT STATES SHE HAS EATEN ALL THREE MEALS TODAY (BREAKFAST, LUNCH, DINNER). I WILL GIVE HER HER REGULAR INSULIN RELATED TO HER ACCU, BUT WILL HOLD THE LANTUS. SAFETY RATIONALE FOLLOWED FOR PATIENT IS THAT HER BS LEVELS WILL DROP SIGNIFICANTLY.
[2021-11-19] MEDS: BLOOD SUGAR DIAGNOSTIC 1 EACH STRIP IN SCH ×4 (01:21→13:44)
[2021-11-19] MEDS: INSULIN REGULAR, HUMAN 100 UNIT/ML 3 ML VIAL SQ PRN ×4 (01:30→13:57)
--- NOTE | 2021-11-19 06:14 | NUR ---
RN CLOSING NOTE PATIENT ASLEEP IN BED. A/OX2. NO S/S OF DISTRESS; BREATHING UNLABORED ON RM AIR. NO IV ACCESS STILL - PATIENT STILL REFUSES. SAFETY MEASURES IN PLACE: BED AT LOWEST POSITION, BED LOCKED, RAILS UP X3, CALL DYER WITHIN REACH. WILL ENDORSE TO NEXT SHIFT FOR ROSANNA.
--- NOTE | 2021-11-19 07:00 | NUR ---
MS RN OPENING NOTE PATIENT LAYING IN BED A/O X 4, TOLERATING WELL ON ROOM AIR WITH NO S/S OF RESPIRATORY DISTRESS. BREATHING EVEN AND UNLABORED WITH NO COMPLAINTS OF PAIN OR DISCOMFORT AT THIS TIME. NO IV ACCESS DUE TO PATIENT REFUSAL. SAFETY MEASURES IN PLACE: BED IN LOWEST LOCKED POSITION, SIDE RAILS UP X 2, CALL LIGHT WITHIN REACH. WILL CONTINUE TO MONITOR.
[2021-11-19 07:13] LABS: CALCIUM, SERUM 9.7 mg/dL (8.5-10.1)
[2021-11-19 08:56] VITALS: BP 141/63
[2021-11-19] MEDS: DOXYCYCLINE HYCLATE (100 MG) 100 MG TABLET PO SCH (09:01)
[2021-11-19] MEDS: FAMOTIDINE (20 MG) 20 MG TABLET PO SCH (09:01)
[2021-11-19] MEDS: AMLODIPINE BESYLATE 5 MG TABLET PO SCH (09:02)
[2021-11-19] MEDS: LEVETIRACETAM (250 MG) 250 MG TABLET PO SCH (09:02)
[2021-11-19] MEDS: ASPIRIN EC 81 MG TABLET.DR PO SCH (09:02)
[2021-11-19 09:03] VITALS: BP 141/63
[2021-11-19] MEDS: LOSARTAN POTASSIUM 50 MG TABLET PO SCH (09:03)
[2021-11-19] MEDS: THERAHONEY GEL 1.5 OZ TUBE TP SCH (09:28)
[2021-11-19] MEDS ORDERED: GLUCERNA SHAKE 237 ML CAN PO SCH (14:00)
--- NOTE | 2021-11-19 14:30 | NUR ---
MS SENIOR ACCOUNT REPRESENTATIVE NOTE PATIENT A/O X 4, TOLERATING WELL ON ROOM AIR WITH NO S/S OF RESPIRATORY DISTRESS. NO COMPLAINTS OF PAIN OR DISCOMFORT. VITAL SIGNS STABLE. PATIENT MADE AWARE OF MD DISCHARGE ORDERS AND INSTRUCTIONS. PATIENT VERBALIZED UNDERSTANDING OF MD INSTRUCTIONS AND SIGNED INSTRUCTIONS LIST. PATIENT VERBALIZED POSSESSION OF ALL BELONGINGS AND SIGNED BELONGINGS LIST. FULL REPORT GIVEN TO CAREGIVER JOSE AT [facility]. ALL BELONGINGS TRANSFERRED TO electrical power station technician, PATIENT TRANSFERRED TO [facility] AND TRANSPORTED OFF OF UNIT ACCOMPANIED BY 2 PMO CONSULTANT.
== END 2021-11-19 14:30 | DRG 623 ==
LOC: ER 15:55 → TELE 21:35 → MED 22:34
PROVIDERS: ADMIT Internal Medicine; ATTEND Internal Medicine
PROC: 0JBR0ZZ Excision of Left Foot Subcutaneous Tissue and Fascia, Open Approach (ICD-10-PCS; principal; 2021-11-15)
DX: E11.622 Type 2 diabetes mellitus with other skin ulcer (principal); L03.116 Cellulitis of left lower limb; L97.329 Non-pressure chronic ulcer of left ankle with unspecified severity; E11.621 Type 2 diabetes mellitus with foot ulcer; I10 Essential (primary) hypertension; E11.65 Type 2 diabetes mellitus with hyperglycemia; E78.5 Hyperlipidemia, unspecified; K21.9 Gastro-esophageal reflux disease without esophagitis; I16.0 Hypertensive urgency; E11.40 Type 2 diabetes mellitus with diabetic neuropathy, unspecified; Z20.822 Contact with and (suspected) exposure to COVID-19; Z87.81 Personal history of (healed) traumatic fracture; Z79.4 Long term (current) use of insulin; Z79.82 Long term (current) use of aspirin; F17.200 Nicotine dependence, unspecified, uncomplicated; Z83.3 Family history of diabetes mellitus; Z79.899 Other long term (current) drug therapy; Z96.649 Presence of unspecified artificial hip joint; M62.562 Muscle wasting and atrophy, not elsewhere classified, left lower leg; M62.561 Muscle wasting and atrophy, not elsewhere classified, right lower leg; W18.30XA Fall on same level, unspecified, initial encounter; Y92.9 Unspecified place or not applicable; Y99.9 Unspecified external cause status; X50.1XXA Overexertion from prolonged static or awkward postures, initial encounter; S09.90XA Unspecified injury of head, initial encounter
CPT/HCPCS: 36415; 70450-TC; 71045-TC; 72125-TC; 73590-TC; 73610-TC; 80048-TC; 80202-TC; 82247-TC; 82248-TC; 82962-TC; 83605-TC; 83735-TC; 84100-TC; 84484-TC; 85025-TC; 85652-TC; 86140-TC; 87040-TC; 87081-TC; 93971-TC; 97112-TC; 97116-TC; 97530-TC; C9803; G0378; J0360; J1815; J3370; J7050; J7060; Q0162

== ENCOUNTER 2022-01-10 15:49 | Inpatient (IN) | payer MEDICARE, OTHER ==
[~2022-01-10] VITALS: Ht 154.9 cm; Wt 54.4 kg
[~2022-01-10 15:49] MED LIST changes: +DOXY100T2 PO
--- NOTE | 2022-01-10 16:10 | NUR ---
TO ER BED 6. [id number] FROM HOME C/O HIGHBLOOD PRESSURE PER EMS 218/98 AND BLOOD IN URINE. AAOX4, QATARI SPEAKING. NOT AMBULATORY. WEARS DIAPER. PT DENIES ANY PAINFUL URINATION. DENIES ANY CHEST PAIN OR SOB. CONNECTED TO MONITOR. AWAITING MD HOLLY
[2022-01-10] MEDS ORDERED: IV NS 0.9% 1,000 ML IV ONE ×2 (17:30→21:30)
--- NOTE | 2022-01-10 17:33 | NUR ---
LAB AT BEDSIDE
--- NOTE | 2022-01-10 17:40 | NUR ---
IV LINE ESTABLISHED , LAC 20G
[2022-01-10 17:53] LABS: BASOPHILS % (AUTO) 0.5 % (0.0-2.0); EOSINOPHILS % (AUTO) 1.8 % (0.0-6.0); HEMATOCRIT 39 % (33-45); HEMOGLOBIN 13.4 g/dL (11.5-14.8); LYMPHOCYTES # (AUTO) 1.5 K/uL (0.8-4.8); LYMPHOCYTES % (AUTO) 22.4 % (20.0-44.0); MEAN CORPUSCULAR HGB CONC 34 g/dl (31.0-36.0); MEAN CORPUSCULAR VOLUME 91 fL (82-100); MONOCYTES # (AUTO) 0.5 K/uL (0.1-1.30); MONOCYTES % (AUTO) 6.8 % (2.0-12.0); NEUTROPHILS # (AUTO) 4.6 K/uL (1.8-8.9); NEUTROPHILS % (AUTO) 68.5 % (43.0-81.0); PLATELET COUNT (AUTO) 219 K/uL (150-450); RED BLOOD CELL COUNT(AUTO) 4.32 MIL/uL (4.0-5.2); WHITE BLOOD COUNT (AUTO) 6.7 K/uL (4.3-11.0)
--- NOTE | 2022-01-10 17:57 | NUR ---
URINE SAMPLE COLLECTED AND SENT TO LAB
[2022-01-10 18:16] LABS: CALCIUM, SERUM 9.5 mg/dL (8.5-10.1); CREATININE 1.2 mg/dL (0.6-1.3); POTASSIUM 4.8 mmol/L (3.5-5.1)
--- NOTE | 2022-01-10 18:22 | NUR ---
CRITICAL LAB: GLUCOSE 578. AWARE
[2022-01-10] MEDS ORDERED: INSULIN REGULAR, HUMAN 100 UNIT/ML 10 ML VIAL SQ ONE (19:30)
[2022-01-10] MEDS ORDERED: INSULIN REGULAR, HUMAN 100 UNIT/ML 10 ML VIAL ONE (19:34)
[2022-01-10 19:52] LABS: BILIRUBIN,URINE NEGATIVE (NEGATIVE); COLOR,URINE YELLOW (YELLOW); LEUKOCYTE ESTERASE ,URINE SMALL (NEGATIVE); NITRITE, URINE NEGATIVE (NEGATIVE); PH,URINE 5.5 (5.0-8.0); PROTEIN,URINE 100 mg/dl (NEGATIVE); UGLUCOSE >=1000 mg/dL (NEGATIVE); UROBILINOGEN,URINE 0.2 EU/dL (0.2)
[2022-01-10 19:57] LABS: BACTERIA,URINE 2+ /HPF (None Seen); RBC,URINE 51-80 /HPF (0-2); SQUAMOUS EPITHELIAL CELL,UR 0-2 /HPF (None Seen); WBC,URINE 21-50 /HPF (0-3)
[2022-01-10] MEDS ORDERED: CEFTRIAXONE 1GM BAG (ER ONLY) 50 ML IV ONE (20:23)
[2022-01-10] MEDS ORDERED: CEFTRIAXONE 1GM BAG (ER ONLY) 1 GM/50 ML PIGGYBACK IV ONE (20:30)
--- NOTE | 2022-01-10 21:07 | NUR ---
ACCUCHECK : 380. AWARE
--- NOTE | 2022-01-10 21:23 | NUR ---
XRAY AT BEDSIDE
--- NOTE | 2022-01-10 22:03 | NUR ---
COVID ANTIGEN SWAB COLLECTED AND SENT TO LAB
[2022-01-11] MEDS ORDERED: MORPHINE SULFATE INJ 2 MG/ML DISP.SYRIN IV PRN
[2022-01-11] MEDS ORDERED: DEXTROSE 50%-WATER 50 ML DISP.SYRIN IV PRN
[2022-01-11] MEDS ORDERED: ONDANSETRON HCL/PF 4 MG/2 ML VIAL IVP PRN
[2022-01-11] MEDS ORDERED: hydrALAZINE HCL IV 20 MG VIAL IV PRN
[2022-01-11] MEDS ORDERED: ACETAMINOPHEN 325 MG TABLET PO PRN
--- NOTE | 2022-01-11 00:13 | NUR ---
ACCBIA: 182. AWARE
[2022-01-11] MEDS ORDERED: IV NS 0.9% 1,000 ML IV ONE (00:30)
--- NOTE | 2022-01-11 00:33 | NUR ---
MS 304-1
[2022-01-11 00:35] LABS: CALCIUM, SERUM 8.7 mg/dL (8.5-10.1); CREATININE 0.9 mg/dL (0.6-1.3); POTASSIUM 3.6 mmol/L (3.5-5.1)
[2022-01-11 00:41] LABS: ALBUMIN 2.6 g/dL (3.4-5.0); BILIRUBIN,TOTAL 0.3 mg/dL (0.2-1.0); TOTAL PROTEIN, SERUM 6.6 g/dL (6.4-8.2)
[2022-01-11] MEDS: INSULIN GLARGINE, 100 UNIT/ML CARTRIDGE SQ SCH ×3 (00:48→21:22)
--- NOTE | 2022-01-11 00:49 | NUR ---
MRSA SWAB COLLECTED AND SENT TO LAB. PATIENT'S BELONGINGS LIST DONE.
--- NOTE | 2022-01-11 00:50 | NUR ---
REPORT GIVEN TO ZEYAD HORTON FOR ROSANNA
--- NOTE | 2022-01-11 00:50 | NUR ---
RN NOTE RECEIVED REPORT FROM OSL HIDALGO; AWAITING FOR PATIENT ARRIVAL TO UNIT
[2022-01-11] MEDS ORDERED: VANCOMYCIN 1 GM in IV D5W 250ml IV ONE (01:00)
--- NOTE | 2022-01-11 01:50 | NUR ---
MS ROUSTABOUT CREW NOTES PATIENT ARRIVED ON UNIT VIA GURNEY, ACCOMPANIED BY ER STAFF; PATIENT A/OX3, ENGLISH SPEAKING; PATIENT NOT AMBULATORY, BLE AND LEFT ARM CONTRACTION NOTED; PATIENT ABLE TO MOVE BLE BUT MINIMALLY. BREATHING EVEN AND UNLABORED; NO SOB NOTED, NO DISTRESS NOTED; PATIENT DENIES PAIN; TOLERATING ROOM AIR 99%. VSS. PATIENTS BELONGINGS CHECKED AT BEDSIDE, WITNESSED BY PATIENT AND 2 RNS. PATIENT CHANGED INTO HOSPITAL GOWN. SKIN ASSESSMENT DONE, PICTURES TAKEN AND PLACED IN PATIENT CHART; R AC #20 IV SITE INTACT AND PATENT, FLUSHING WELL; PATIENT ORIENTED TO STAFF AND TO UNIT, SAFETY PRECAUTIONS IMPLEMENTED; BED LOCKED IN LOW POSITION; SIDE RAILSX2, CALL LIGHT WITHIN REACH; WILL CONT TO MONITOR; AWAITING IV ABX ARRIVAL ON UNIT. CHARGE NURSE AWARE
[2022-01-11 02:00] VITALS: BP 168/72
[2022-01-11] MEDS ORDERED: CEFEPIME 2 GM in IV D5W 100 ML IV ONE (02:00)
--- NOTE | 2022-01-11 02:02 | NUR ---
PT TRANSFERRED TO [facility]
--- NOTE | 2022-01-11 02:21 | NUR ---
MS RN NOTE PATIENT BLOOD SUGAR 128, 10 UNITS LANTUS ORDERED, CHARGE NURSE AWARE; PATIENT HAS NOT EATEN AND IS VERY HUNGRY. PATIENT STATED SHE ALSO RECEIVED INSULIN COVERAGE IN ER. PATIENT EDUCATED ON IMPORTANCE OF COMPLIANCE WITH MEDICATIONS AND TREATMENTS THROUGHOUT HOSPITALIZATION; PATIENT DID NOT WANT TO TAKE LANTUS EVEN WITH FURTHER INSTRUCTION; PATIENT WOULD LIKE TO REST AND TO SEE BLOOD GLUCOSE LEVEL IN AM. WILL CONT TO MONITOR
[2022-01-11] MEDS ORDERED: CEFEPIME 1 GM VIAL ONE (02:26)
[2022-01-11] MEDS ORDERED: VANCOMYCIN 1 GM VIAL ONE (02:26)
--- NOTE | 2022-01-11 02:28 | NUR ---
MS RN NOTE PATIENT ARRIVED ON UNIT 0200, ANTIBIOTICS NOT ADMINISTERED SCHEDULED. AWAITING NURSING BOTTOM FINISHER. CHARGE NURSE AWARE.
[2022-01-11 03:21] VITALS: BP 168/72
[2022-01-11] MEDS: INSULIN REGULAR, HUMAN 100 UNIT/ML 3 ML VIAL SQ PRN ×3 (06:27→17:44)
[2022-01-11] MEDS: BLOOD SUGAR DIAGNOSTIC 1 EACH STRIP VI SCH ×4 (06:31→21:23)
[2022-01-11 06:41] LABS: BASOPHILS % (AUTO) 0.6 % (0.0-2.0); EOSINOPHILS % (AUTO) 2.5 % (0.0-6.0); HEMATOCRIT 34 % (33-45); HEMOGLOBIN 11.7 g/dL (11.5-14.8); LYMPHOCYTES # (AUTO) 1.5 K/uL (0.8-4.8); LYMPHOCYTES % (AUTO) 25.5 % (20.0-44.0); MEAN CORPUSCULAR HGB CONC 34 g/dl (31.0-36.0); MEAN CORPUSCULAR VOLUME 91 fL (82-100); MONOCYTES # (AUTO) 0.4 K/uL (0.1-1.30); MONOCYTES % (AUTO) 6.6 % (2.0-12.0); NEUTROPHILS # (AUTO) 3.8 K/uL (1.8-8.9); NEUTROPHILS % (AUTO) 64.8 % (43.0-81.0); PLATELET COUNT (AUTO) 184 K/uL (150-450); RED BLOOD CELL COUNT(AUTO) 3.73 MIL/uL (4.0-5.2); WHITE BLOOD COUNT (AUTO) 5.9 K/uL (4.3-11.0)
--- NOTE | 2022-01-11 07:01 | NUR ---
MS RN CLOSING NOTES PATIENT RESTING IN BED COMFORTABLY; A/OX4, [place] SPEAKING; ABLE TO MAKE NEEDS KNOWN; NEEDS TRANSLATION; BREATHING EVEN AND UNLABORED; NO SOB NOTED; NO DISTRESS NOTED; PATIENT DENIES PAIN; R AC #20 NOTED. PATIENT GOING IN FOR MRI WITHOUT CONTRAST TODAY, CHECKLIST COMPLETED, SIGNED AND IN CHART. ALL NEEDS RENDERED; SAFETY PRECAUTIONS IMPLEMENTED; BED LOCKED IN LOW POSITION; SIDE RAILSX2, CALL LIGHT WITHIN REACH; WILL ENDORSE ROSANNA TO ONCOMING SHIFT
[2022-01-11 08:00] VITALS: BP 138/56
[2022-01-11 08:54] LABS: ALBUMIN 2.5 g/dL (3.4-5.0); BILIRUBIN,TOTAL 0.4 mg/dL (0.2-1.0); CALCIUM, SERUM 8.4 mg/dL (8.5-10.1); CREATININE 0.9 mg/dL (0.6-1.3); MAGNESIUM 1.7 mg/dL (1.8-2.4); PHOSPHORUS 2.6 mg/dL (2.5-4.9); POTASSIUM 3.4 mmol/L (3.5-5.1); TOTAL PROTEIN, SERUM 6.5 g/dL (6.4-8.2)
--- NOTE | 2022-01-11 09:04 | NUR ---
WOUND CARE CONSULT: PT PRESENTS WITH LEFT LATERAL ANKLE WOUND WITH EXPOSURE OF BONE/HARDWARE, PRESENT ON ADMISSION. DR PICKETT NOTIFIED OF DPM CONSULT REQUEST. RECOMMENDATIONS MADE FOR SKIN PROTECTION. DISCUSSED WITH NURSING STAFF. PT IS INDEPENDENT WITH BED MOBILITY BUT IS INCONTINENT OF URINE. MD IN AGREEMENT WITH PLAN OF CARE.
[2022-01-11] MEDS ORDERED: MAGNESIUM OXIDE 400 MG TABLET PO ONE (09:30)
[2022-01-11] MEDS ORDERED: Z GUARD REMEDY 4 OZ OINT TP PRN (09:30)
[2022-01-11] MEDS: LOSARTAN POTASSIUM 50 MG TABLET PO SCH (10:07)
[2022-01-11] MEDS: AMLODIPINE BESYLATE 5 MG TABLET PO SCH (10:07)
[2022-01-11] MEDS: ASPIRIN EC 81 MG TABLET.DR PO SCH (10:08)
[2022-01-11] MEDS: LEVETIRACETAM (250 MG) 250 MG TABLET PO SCH ×2 (10:08→21:08)
[2022-01-11] MEDS: FAMOTIDINE (20 MG) 20 MG TABLET PO SCH (10:08)
[2022-01-11] MEDS: HEPARIN SODIUM, PORCINE 5000 UNITS/1 ML VIAL SQ SCH ×2 (10:13→21:09)
[2022-01-11] MEDS ORDERED: POTASSIUM CHLORIDE 20 MEQ TAB.PRT.SR PO SCH (10:30)
[2022-01-11] MEDS: VANCOMYCIN HCL 0.75 GM in IV D5W 250 ML IV SCH (14:00)
[2022-01-11] MEDS: CEFEPIME 2 GM in IV D5W 100 ML IV SCH (15:28)
[2022-01-11 16:00] VITALS: BP 145/68
--- NOTE | 2022-01-11 18:00 | NUR ---
COOPERATIVE,MED COMPLIANT,VITALS STABLE.
--- NOTE | 2022-01-11 19:43 | NUR ---
MS RN OPENING NOTES PATIENT RESTING IN BED COMFORTABLY; A/OX4, [place] SPEAKING; ABLE TO MAKE NEEDS KNOWN; BREATHING EVEN AND UNLABORED; NO SOB NOTED; NO DISTRESS NOTED; PATIENT DENIES PAIN; R AC #20 NOTED. ALL NEEDS RENDERED; SAFETY PRECAUTIONS IMPLEMENTED; BED LOCKED IN LOW POSITION; SIDE RAILSX2, CALL LIGHT WITHIN REACH; WILL CONTINUE TO MONITOR.
[2022-01-11 20:21] VITALS: BP 144/69
[2022-01-11] MEDS: ATORVASTATIN 10 MG TABLET PO SCH (21:07)
[2022-01-11] MEDS: *INSULIN REGULAR(HUMULIN R)HUM 100 UNIT/ML VIAL SQ PRN (21:28)
[2022-01-11] MEDS ORDERED: INSULIN GLARGINE, 100 UNIT/ML CARTRIDGE SQ SCH (22:00)
[2022-01-12] MEDS: VANCOMYCIN HCL 0.75 GM in IV D5W 250 ML IV SCH (00:55)
[2022-01-12] MEDS: CEFEPIME 2 GM in IV D5W 100 ML IV SCH ×2 (02:48→14:22)
[2022-01-12 06:00] LABS: BASOPHILS % (AUTO) 0.9 % (0.0-2.0); EOSINOPHILS % (AUTO) 2.9 % (0.0-6.0); HEMATOCRIT 31 % (33-45); HEMOGLOBIN 10.9 g/dL (11.5-14.8); LYMPHOCYTES # (AUTO) 1.4 K/uL (0.8-4.8); LYMPHOCYTES % (AUTO) 29.4 % (20.0-44.0); MEAN CORPUSCULAR HGB CONC 35 g/dl (31.0-36.0); MEAN CORPUSCULAR VOLUME 90 fL (82-100); MONOCYTES # (AUTO) 0.4 K/uL (0.1-1.30); MONOCYTES % (AUTO) 9.6 % (2.0-12.0); NEUTROPHILS # (AUTO) 2.7 K/uL (1.8-8.9); NEUTROPHILS % (AUTO) 57.2 % (43.0-81.0); PLATELET COUNT (AUTO) 169 K/uL (150-450); RED BLOOD CELL COUNT(AUTO) 3.44 MIL/uL (4.0-5.2); WHITE BLOOD COUNT (AUTO) 4.7 K/uL (4.3-11.0)
[2022-01-12] MEDS: BLOOD SUGAR DIAGNOSTIC 1 EACH STRIP VI SCH ×4 (06:47→22:10)
[2022-01-12] MEDS: INSULIN REGULAR, HUMAN 100 UNIT/ML 3 ML VIAL SQ PRN ×3 (06:53→17:43)
--- NOTE | 2022-01-12 07:02 | NUR ---
MS RN CLOSING NOTES PATIENT RESTING IN BED COMFORTABLY; A/OX4, LAO SPEAKING; ABLE TO MAKE NEEDS KNOWN; BREATHING EVEN AND UNLABORED; NO SOB NOTED; NO DISTRESS NOTED; PATIENT DENIES PAIN; RAC #20 NOTED. ALL NEEDS RENDERED; SAFETY PRECAUTIONS IMPLEMENTED; BED LOCKED IN LOW POSITION; SIDE RAILSX2, CALL LIGHT WITHIN REACH; WILL CONTINUE ENDORSE CARE TO DAY SHIFT NURSE.
[2022-01-12 07:48] LABS: ALBUMIN 2.1 g/dL (3.4-5.0); BILIRUBIN,TOTAL 0.3 mg/dL (0.2-1.0); CALCIUM, SERUM 8.5 mg/dL (8.5-10.1); CREATININE 0.8 mg/dL (0.6-1.3); MAGNESIUM 1.9 mg/dL (1.8-2.4); PHOSPHORUS 3.1 mg/dL (2.5-4.9); POTASSIUM 3.9 mmol/L (3.5-5.1); TOTAL PROTEIN, SERUM 5.8 g/dL (6.4-8.2)
[2022-01-12 08:00] VITALS: BP 139/70
[2022-01-12] MEDS: AMLODIPINE BESYLATE 5 MG TABLET PO SCH (08:56)
[2022-01-12] MEDS: LOSARTAN POTASSIUM 50 MG TABLET PO SCH (08:56)
[2022-01-12] MEDS: LEVETIRACETAM (250 MG) 250 MG TABLET PO SCH ×2 (08:56→21:20)
[2022-01-12] MEDS: FAMOTIDINE (20 MG) 20 MG TABLET PO SCH (08:56)
[2022-01-12] MEDS: ASPIRIN EC 81 MG TABLET.DR PO SCH (08:56)
[2022-01-12] MEDS: HEPARIN SODIUM, PORCINE 5000 UNITS/1 ML VIAL SQ SCH ×2 (09:00→21:00)
[2022-01-12] MEDS: INSULIN GLARGINE, 100 UNIT/ML CARTRIDGE SQ SCH ×2 (09:29→21:28)
--- NOTE | 2022-01-12 12:58 | NUR ---
received vanco trough level of 23.pharmacy notified.
[2022-01-12 16:00] VITALS: BP 158/68
--- NOTE | 2022-01-12 17:52 | NUR ---
iv leaking,removed.new start #22 angio lt. hand.
--- NOTE | 2022-01-12 19:44 | NUR ---
MS RN OPENING NOTES PATIENT RESTING IN BED COMFORTABLY; A/OX4, SWAZI SPEAKING; ABLE TO MAKE NEEDS KNOWN; BREATHING EVEN AND UNLABORED; NO SOB NOTED; NO DISTRESS NOTED; PATIENT DENIES PAIN; RAC #20 NOTED. ALL NEEDS RENDERED; SAFETY PRECAUTIONS IMPLEMENTED; BED LOCKED IN LOW POSITION; SIDE RAILSX2, CALL LIGHT WITHIN REACH; WILL CONTINUE TO MONITOR.
[2022-01-12 20:00] VITALS: BP 157/71
[2022-01-12] MEDS: ATORVASTATIN 10 MG TABLET PO SCH (21:20)
[2022-01-12] MEDS: *INSULIN REGULAR(HUMULIN R)HUM 100 UNIT/ML VIAL SQ PRN (21:29)
[2022-01-13] MEDS ORDERED: VANCOMYCIN HCL 0.75 GM in IV D5W 250 ML IV SCH (01:00)
[2022-01-13] MEDS: CEFEPIME 2 GM in IV D5W 100 ML IV SCH (02:16)
[2022-01-13 05:57] LABS: CALCIUM, SERUM 8.9 mg/dL (8.5-10.1); POTASSIUM 4.1 mmol/L (3.5-5.1)
[2022-01-13 06:00] LABS: BASOPHILS % (AUTO) 0.8 % (0.0-2.0); EOSINOPHILS % (AUTO) 2.9 % (0.0-6.0); HEMATOCRIT 31 % (33-45); HEMOGLOBIN 10.9 g/dL (11.5-14.8); LYMPHOCYTES # (AUTO) 1.6 K/uL (0.8-4.8); LYMPHOCYTES % (AUTO) 36.8 % (20.0-44.0); MEAN CORPUSCULAR HGB CONC 35 g/dl (31.0-36.0); MEAN CORPUSCULAR VOLUME 91 fL (82-100); MONOCYTES # (AUTO) 0.5 K/uL (0.1-1.30); MONOCYTES % (AUTO) 10.8 % (2.0-12.0); NEUTROPHILS # (AUTO) 2.2 K/uL (1.8-8.9); NEUTROPHILS % (AUTO) 48.7 % (43.0-81.0); PLATELET COUNT (AUTO) 175 K/uL (150-450); RED BLOOD CELL COUNT(AUTO) 3.44 MIL/uL (4.0-5.2); WHITE BLOOD COUNT (AUTO) 4.4 K/uL (4.3-11.0)
[2022-01-13] MEDS: INSULIN REGULAR, HUMAN 100 UNIT/ML 3 ML VIAL SQ PRN ×4 (06:27→22:03)
--- NOTE | 2022-01-13 06:34 | NUR ---
MS RN CLOSING NOTES PATIENT RESTING IN BED COMFORTABLY; A/OX4, SAMOAN SPEAKING; ABLE TO MAKE NEEDS KNOWN; BREATHING EVEN AND UNLABORED; NO SOB NOTED; NO DISTRESS NOTED; PATIENT DENIES PAIN; RAC #20 NOTED. ALL NEEDS RENDERED; ALL DUE MEDS GIVEN AND TOLERATED WELL.SAFETY PRECAUTIONS IMPLEMENTED; BED LOCKED IN LOW POSITION; SIDE RAILSX2, CALL LIGHT WITHIN REACH; WILL ENDORSE CRAE TO DAY SHIFT NURSE.
[2022-01-13] MEDS: BLOOD SUGAR DIAGNOSTIC 1 EACH STRIP VI SCH ×4 (06:42→22:22)
--- NOTE | 2022-01-13 07:10 | NUR ---
MS RN OPENING NOTES RECEIVED PATIENT RESTING IN BED COMFORTABLY; A/OX4, FRENCH SPEAKING; ABLE TO MAKE NEEDS KNOWN; BREATHING EVEN AND UNLABORED, ON ROOM AIR; NO SOB NOTED; NO DISTRESS NOTED; PATIENT DENIES PAIN; RAC #22 SL NOTED. SAFETY PRECAUTIONS IN PLACE: BED LOCKED IN LOW POSITION; SIDE RAILSX2, CALL LIGHT WITHIN REACH; WILL CONTINUE TO MONITOR.
[2022-01-13 08:00] VITALS: BP 150/81
[2022-01-13] MEDS: ASPIRIN EC 81 MG TABLET.DR PO SCH (09:16)
[2022-01-13] MEDS: AMLODIPINE BESYLATE 5 MG TABLET PO SCH (09:16)
[2022-01-13] MEDS: LOSARTAN POTASSIUM 50 MG TABLET PO SCH (09:16)
[2022-01-13] MEDS: FAMOTIDINE (20 MG) 20 MG TABLET PO SCH (09:16)
[2022-01-13] MEDS: LEVETIRACETAM (250 MG) 250 MG TABLET PO SCH ×2 (09:16→21:56)
[2022-01-13] MEDS: HEPARIN SODIUM, PORCINE 5000 UNITS/1 ML VIAL SQ SCH ×2 (09:19→22:01)
--- NOTE | 2022-01-13 09:35 | NUR ---
RN NOTES BLOOD SUGAR CHECK FOR 0900 FOR SCHEDULED 10 UNITS OF INSULIN WAS 197, BREAKFAST WAS EATEN, INSULIN ADMINISTERED. WILL CONTINUE TO MONITOR PATIENT WAS ANY S/S OF HYPER/HYPO GLUCEMIA.
[2022-01-13] MEDS: INSULIN GLARGINE, 100 UNIT/ML CARTRIDGE SQ SCH ×2 (09:38→22:02)
--- NOTE | 2022-01-13 12:00 | NUR ---
RN NOTES BLOOD SUGAR CHECK FOR 1200 BS:230 MG/DL, GIVEN 6 UNITS OF INSULIN PER SLIDING SCALE.
[2022-01-13] MEDS: CEFAZOLIN 2 GM in IV D5W 100 ML IV SCH ×2 (13:14→21:56)
[2022-01-13 16:07] VITALS: BP 135/69
--- NOTE | 2022-01-13 17:30 | NUR ---
RN NOTES BLOOD SUGAR 281 MG/DL, ADMINISTERED 9 UNITS OF INSULIN PER SLIDING SCALE. WILL CONTINUE TO MONITOR.
--- NOTE | 2022-01-13 18:49 | NUR ---
MS RN CLOSING NOTES PATIENT WATCHING TV COMFORTABLY; A/OX3-4, POLISH SPEAKING; ABLE TO MAKE NEEDS KNOWN; BREATHING EVEN AND UNLABORED, STABLE ON ROOM AIR; NO SOB NOTED; NO DISTRESS NOTED; PATIENT DENIES PAIN; RAC #22 SL NOTED. NO S/S OF HYPERGLYCEMIA OR HYPOGLYCEMIA, ALL DUE MEDS GIVEN. SAFETY PRECAUTIONS MAINTAINED: BED LOCKED IN LOW POSITION; SIDE RAILSX2, CALL LIGHT WITHIN REACH; WILL ENDORSE TO NEXT SHIFT FOR ROSANNA.
--- NOTE | 2022-01-13 19:23 | NUR ---
RN OPENING NOTE PATIENT AWAKE IN BED. A/OX3. NO S/S OF DISTRESS, BREATHING W/O DIFFICULTY ON RM AIR. R-HAND #22 SL INTACT AND PATENT. SAFETY MEASURES IN PLACE: BED LOCKED, IN LOWEST POSITION, RAILS UP X3, CALL DYER WITHIN REACH. WILL CONTINUE TO MONITOR PATIENT.
[2022-01-13 20:00] VITALS: BP 130/49
[2022-01-13] MEDS: ATORVASTATIN 10 MG TABLET PO SCH (21:55)
--- NOTE | 2022-01-14 01:08 | NUR ---
RN NOTE REPORT GIVEN TO ELY IN [place]/113-1. PATIENT WILL BE TRANSFERRED W/ ACLS MEASURES IN PLACE. Addendum: 01/14/22 at 0731 by MICHELL BRYAN RN incorrect patient
[2022-01-14] MEDS: CEFAZOLIN 2 GM in IV D5W 100 ML IV SCH ×3 (04:51→21:52)
[2022-01-14] MEDS: BLOOD SUGAR DIAGNOSTIC 1 EACH STRIP VI SCH ×4 (06:30→21:53)
[2022-01-14] MEDS: INSULIN REGULAR, HUMAN 100 UNIT/ML 3 ML VIAL SQ PRN ×3 (06:31→18:47)
--- NOTE | 2022-01-14 07:32 | NUR ---
RN CLOSING NOTE PATIENT AWAKE IN BED. A/OX3. NO S/S OF DISTRESS, BREATHING W/O DIFFICULTY ON RM AIR. R-HAND #22 SL INTACT AND PATENT. SAFETY MEASURES IN PLACE: BED LOCKED, IN LOWEST POSITION, RAILS UP X3, CALL DYER WITHIN REACH. WILL ENDORSE TO NEXT SHIFT FOR ROSANNA.
--- NOTE | 2022-01-14 07:35 | NUR ---
ms rn received on bed, awake,alert,oriented x3,not in any form of distress ,respirations even and unlabored,no sob noted, lung are diminished,abdomen soft,positive bowel sounds,denies pain at this time,all needs attended.
[2022-01-14 08:00] VITALS: BP 145/76
--- NOTE | 2022-01-14 08:32 | NUR ---
WOUND CARE CONSULT: PT SEEN FOR RE-EVALUATION OF LEFT LATERAL ANKLE WOUND PER ORTHO SURGEON AND DULITE MACHINE BLUER. WOUND SIZE NOT CHANGED (1CM X 1CM X 0.5CM) WITH EXPOSED HARDWARE. SLIGHT MACERATION OF PERIWOUND NOTED. DISCUSSED WITH DR PICKETT. NEW WOUND TREATMENT ORDERS RECEIVED AND DISCUSSED WITH NURSING STAFF. TREATMENT ORDERS UPDATED. AND DPM IN AGREEMENT WITH PLAN OF CARE.
[2022-01-14 08:36] LABS: BASOPHILS % (AUTO) 0.5 % (0.0-2.0); EOSINOPHILS % (AUTO) 2.2 % (0.0-6.0); HEMATOCRIT 35 % (33-45); HEMOGLOBIN 11.9 g/dL (11.5-14.8); LYMPHOCYTES # (AUTO) 1.3 K/uL (0.8-4.8); MEAN CORPUSCULAR HGB CONC 34 g/dl (31.0-36.0); MEAN CORPUSCULAR VOLUME 91 fL (82-100); MONOCYTES # (AUTO) 0.5 K/uL (0.1-1.30); MONOCYTES % (AUTO) 8.5 % (2.0-12.0); NEUTROPHILS # (AUTO) 4.3 K/uL (1.8-8.9); NEUTROPHILS % (AUTO) 67.8 % (43.0-81.0); PLATELET COUNT (AUTO) 198 K/uL (150-450); RED BLOOD CELL COUNT(AUTO) 3.84 MIL/uL (4.0-5.2); WHITE BLOOD COUNT (AUTO) 6.4 K/uL (4.3-11.0)
[2022-01-14 09:49] LABS: CREATININE 1.3 mg/dL (0.6-1.3); POTASSIUM 3.9 mmol/L (3.5-5.1)
--- NOTE | 2022-01-14 10:05 | NUR ---
ms ramirez breakfast served,due meds given,tolerated well.
[2022-01-14] MEDS: AMLODIPINE BESYLATE 5 MG TABLET PO SCH (10:21)
[2022-01-14] MEDS: ASPIRIN EC 81 MG TABLET.DR PO SCH (10:21)
[2022-01-14] MEDS: FAMOTIDINE (20 MG) 20 MG TABLET PO SCH (10:21)
[2022-01-14] MEDS: LOSARTAN POTASSIUM 50 MG TABLET PO SCH (10:22)
[2022-01-14] MEDS: LEVETIRACETAM (250 MG) 250 MG TABLET PO SCH ×2 (10:22→21:52)
[2022-01-14] MEDS: HEPARIN SODIUM, PORCINE 5000 UNITS/1 ML VIAL SQ SCH ×2 (10:26→21:53)
[2022-01-14] MEDS: CADEXOMER IODINE 40 GM TUBE TP SCH (10:29)
[2022-01-14] MEDS: INSULIN GLARGINE, 100 UNIT/ML CARTRIDGE SQ SCH ×2 (10:33→21:00)
[2022-01-14 16:00] VITALS: BP 135/64
--- NOTE | 2022-01-14 19:40 | NUR ---
RN NOTE PATIENT ASLEEP IN BED. A/OX4, [place] CITIZEN SPEAKER. NO S/S OF DISTRESS, BREATHING W/O DIFFICULTY ON ROOM AIR. RAFIQ MIDLINE #18 INTACT AND PATENT. SAFETY MEASURES IN PLACE: BED LOCKED, AT LOWEST POSITION, RAILS UP X2, CALL DYER WITHIN REACH. WILL CONTINUE TO MONITOR PATIENT.
[2022-01-14 20:29] VITALS: BP 142/51
[2022-01-14] MEDS: ATORVASTATIN 10 MG TABLET PO SCH (21:52)
[2022-01-14] MEDS: *INSULIN REGULAR(HUMULIN R)HUM 100 UNIT/ML VIAL SQ PRN (21:54)
[2022-01-15] MEDS: CEFAZOLIN 2 GM in IV D5W 100 ML IV SCH ×3 (04:19→20:40)
[2022-01-15 06:23] LABS: BASOPHILS % (AUTO) 0.5 % (0.0-2.0); EOSINOPHILS % (AUTO) 2.4 % (0.0-6.0); HEMATOCRIT 32 % (33-45); HEMOGLOBIN 10.9 g/dL (11.5-14.8); LYMPHOCYTES # (AUTO) 1.7 K/uL (0.8-4.8); LYMPHOCYTES % (AUTO) 31.4 % (20.0-44.0); MEAN CORPUSCULAR HGB CONC 34 g/dl (31.0-36.0); MEAN CORPUSCULAR VOLUME 91 fL (82-100); MONOCYTES # (AUTO) 0.6 K/uL (0.1-1.30); NEUTROPHILS % (AUTO) 54.7 % (43.0-81.0); PLATELET COUNT (AUTO) 194 K/uL (150-450); RED BLOOD CELL COUNT(AUTO) 3.56 MIL/uL (4.0-5.2); WHITE BLOOD COUNT (AUTO) 5.5 K/uL (4.3-11.0)
[2022-01-15] MEDS: BLOOD SUGAR DIAGNOSTIC 1 EACH STRIP VI SCH ×4 (06:31→21:23)
[2022-01-15] MEDS: INSULIN REGULAR, HUMAN 100 UNIT/ML 3 ML VIAL SQ PRN ×3 (06:31→18:05)
[2022-01-15 06:37] LABS: CALCIUM, SERUM 8.7 mg/dL (8.5-10.1); CREATININE 1.3 mg/dL (0.6-1.3)
--- NOTE | 2022-01-15 06:49 | NUR ---
RN NOTE PATIENT ASLEEP IN BED. A/OX4. NO S/S OF DISTRESS, BREATHING WITHOUT DIFFICULTY ON RM AIR. RAFIQ MIDLINE #18 SL INTACT AND PATENT. NO PAIN NOTED AT THIS TIME. ALL NEEDS ATTENDED TO. SAFETY MEASURES IN PLACE: BED LOCKED, AT LOWEST POSITION, RAILS UP X2, CALL DYER WITHIN REACH. WILL ENDORSE TO DAYSHIFT FOR ROSANNA.
[2022-01-15 08:00] VITALS: BP 126/61
--- NOTE | 2022-01-15 08:35 | NUR ---
ms rn received on bed, awake,alert,oriented x4,not in any form of distress, respirations even and unlabored,no sob noted, lungs are clear,abdomen soft,positive bowel sounds,denies pain at this time, will monitor patient.
[2022-01-15] MEDS: LEVETIRACETAM (250 MG) 250 MG TABLET PO SCH ×2 (09:18→20:37)
[2022-01-15] MEDS: ASPIRIN EC 81 MG TABLET.DR PO SCH (09:18)
[2022-01-15] MEDS: FAMOTIDINE (20 MG) 20 MG TABLET PO SCH (09:18)
[2022-01-15] MEDS: AMLODIPINE BESYLATE 5 MG TABLET PO SCH (09:18)
[2022-01-15] MEDS: LOSARTAN POTASSIUM 50 MG TABLET PO SCH (09:19)
[2022-01-15] MEDS: HEPARIN SODIUM, PORCINE 5000 UNITS/1 ML VIAL SQ SCH ×2 (09:20→20:47)
--- NOTE | 2022-01-15 09:20 | NUR ---
ms ramirez breakfast served,due meds given tolerated well.
[2022-01-15] MEDS: INSULIN GLARGINE, 100 UNIT/ML CARTRIDGE SQ SCH ×2 (09:52→21:21)
[2022-01-15] MEDS: CADEXOMER IODINE 40 GM TUBE TP SCH (10:04)
[2022-01-15] MEDS ORDERED: CEPH500C2 PO (12:41)
[2022-01-15 16:00] VITALS: BP 149/71
[2022-01-15 20:00] VITALS: BP 146/72
--- NOTE | 2022-01-15 20:03 | NUR ---
RN NOTE PATIENT ASLEEP IN BED. A/OX4, CYMRAES SPEAKER. NO S/S OF DISTRESS, BREATHING W/O DIFFICULTY ON ROOM AIR. RAFIQ MIDLINE #18 INTACT AND PATENT. SAFETY MEASURES IN PLACE: BED LOCKED, AT LOWEST POSITION, RAILS UP X2, CALL DYER WITHIN REACH. WILL CONTINUE TO MONITOR PATIENT.
[2022-01-15] MEDS: *INSULIN REGULAR(HUMULIN R)HUM 100 UNIT/ML VIAL SQ PRN (21:22)
[2022-01-15] MEDS: ATORVASTATIN 10 MG TABLET PO SCH (21:24)
[2022-01-16] MEDS: CEFAZOLIN 2 GM in IV D5W 100 ML IV SCH (04:47)
[2022-01-16 06:00] LABS: BASOPHILS % (AUTO) 0.7 % (0.0-2.0); EOSINOPHILS % (AUTO) 1.9 % (0.0-6.0); HEMATOCRIT 30 % (33-45); HEMOGLOBIN 10.3 g/dL (11.5-14.8); LYMPHOCYTES # (AUTO) 1.5 K/uL (0.8-4.8); LYMPHOCYTES % (AUTO) 26.5 % (20.0-44.0); MEAN CORPUSCULAR HGB CONC 34 g/dl (31.0-36.0); MEAN CORPUSCULAR VOLUME 92 fL (82-100); MONOCYTES # (AUTO) 0.6 K/uL (0.1-1.30); MONOCYTES % (AUTO) 11.2 % (2.0-12.0); NEUTROPHILS # (AUTO) 3.5 K/uL (1.8-8.9); NEUTROPHILS % (AUTO) 59.7 % (43.0-81.0); PLATELET COUNT (AUTO) 185 K/uL (150-450); RED BLOOD CELL COUNT(AUTO) 3.27 MIL/uL (4.0-5.2); WHITE BLOOD COUNT (AUTO) 5.8 K/uL (4.3-11.0)
[2022-01-16] MEDS: INSULIN REGULAR, HUMAN 100 UNIT/ML 3 ML VIAL SQ PRN (06:22)
--- NOTE | 2022-01-16 06:23 | NUR ---
RN NOTE CLOSING PATIENT ASLEEP IN BED. A/OX4, MALAY SPEAKER. NO S/S OF DISTRESS, BREATHING W/O DIFFICULTY ON ROOM AIR. RAFIQ MIDLINE #18 INTACT AND PATENT. ALL DUE MEDS GIVEN AND TOLERATED WELL. ALL NEEDS MET AT ALL TIMES KEPT CLEAN AND DRY AND DRY AT ALL TIMES SAFETY MEASURES IN PLACE: BED LOCKED, AT LOWEST POSITION, RAILS UP X2, CALL DYER WITHIN REACH. WILL ENDORSE CARE TO DAY SHIFT NURSE.
[2022-01-16 06:26] LABS: CALCIUM, SERUM 8.5 mg/dL (8.5-10.1); CREATININE 1.3 mg/dL (0.6-1.3); POTASSIUM 4.1 mmol/L (3.5-5.1)
[2022-01-16] MEDS: BLOOD SUGAR DIAGNOSTIC 1 EACH STRIP VI SCH (06:35)
--- NOTE | 2022-01-16 07:51 | NUR ---
RN OPENING NOTE PATIENT RECEIVED IN BED, AO X 4. ABLE TO RESPONDS PHYSICAL STIMULI. IN NO ACUTE DISTRESS NOTED. RESPIRATORY EVEN AND UNLABORED ON ROOM AIR. SKIN IS WARM TO TOUCH, KEEP CLEAN/DRY. KEPT ELEVATED HOB FOR ENSURE AIRWAY AND ASPIRATION PRECAUTION, ALSO LOWEST POSITION OF THE BED, S/R UP X 3, BED ALARM IS ON AT ALL THE TIMES. ALL SAFETY PRECAUTION APPLIED. CALL LIGHT WITHIN REACH, WILL CONTINUE TO MONITOR.
[2022-01-16 08:00] VITALS: BP 133/56
[2022-01-16] MEDS: HEPARIN SODIUM, PORCINE 5000 UNITS/1 ML VIAL SQ SCH (08:58)
[2022-01-16] MEDS: ASPIRIN EC 81 MG TABLET.DR PO SCH (08:59)
[2022-01-16] MEDS: LEVETIRACETAM (250 MG) 250 MG TABLET PO SCH (08:59)
[2022-01-16 09:00] VITALS: BP 133/56
[2022-01-16] MEDS: LOSARTAN POTASSIUM 50 MG TABLET PO SCH (09:00)
[2022-01-16] MEDS: CADEXOMER IODINE 40 GM TUBE TP SCH (09:00)
[2022-01-16] MEDS: AMLODIPINE BESYLATE 5 MG TABLET PO SCH (09:00)
[2022-01-16] MEDS: FAMOTIDINE (20 MG) 20 MG TABLET PO SCH (09:00)
[2022-01-16] MEDS: INSULIN GLARGINE, 100 UNIT/ML CARTRIDGE SQ SCH (09:01)
--- NOTE | 2022-01-16 12:45 | NUR ---
3 patch washer PICKED UP PATIENT TO THE HOME AND GIVEN REPORT. PATIENT IN STABLE CONDITION, PICTURES HAS BEEN TAKEN BY PREVIOUS SHIFT.
== END 2022-01-16 13:00 | disposition hospice, home (50) | DRG 603 ==
LOC: ER 15:55 → MED 01-11 00:35
PROVIDERS: ADMIT Internal Medicine
PROC: 0HBRXZZ Excision of Toe Nail, External Approach (ICD-10-PCS; 2022-01-13)
PROC: 05HB33Z Insertion of Infusion Device into Right Basilic Vein, Percutaneous Approach (ICD-10-PCS; principal; 2022-01-14)
DX: L03.116 Cellulitis of left lower limb (principal); L97.329 Non-pressure chronic ulcer of left ankle with unspecified severity; N39.0 Urinary tract infection, site not specified; E87.1 Hypo-osmolality and hyponatremia; E11.65 Type 2 diabetes mellitus with hyperglycemia; Z79.4 Long term (current) use of insulin; E11.621 Type 2 diabetes mellitus with foot ulcer; E11.622 Type 2 diabetes mellitus with other skin ulcer; E11.40 Type 2 diabetes mellitus with diabetic neuropathy, unspecified; I10 Essential (primary) hypertension; Z79.82 Long term (current) use of aspirin; Z79.899 Other long term (current) drug therapy; M20.42 Other hammer toe(s) (acquired), left foot; M20.41 Other hammer toe(s) (acquired), right foot; Z83.3 Family history of diabetes mellitus; Z96.649 Presence of unspecified artificial hip joint; F17.200 Nicotine dependence, unspecified, uncomplicated; Z91.19 Patient's noncompliance with other medical treatment and regimen; E87.8 Other disorders of electrolyte and fluid balance, not elsewhere classified; B96.1 Klebsiella pneumoniae [K. pneumoniae] as the cause of diseases classified elsewhere; E86.0 Dehydration; L60.3 Nail dystrophy; M62.562 Muscle wasting and atrophy, not elsewhere classified, left lower leg; M62.561 Muscle wasting and atrophy, not elsewhere classified, right lower leg; B95.8 Unspecified staphylococcus as the cause of diseases classified elsewhere; Z96.662 Presence of left artificial ankle joint
CPT/HCPCS: 36410; 36415; 73610-TC; 73721-TC; 80048-TC; 80053-TC; 80202-TC; 81001; 82962-TC; 83605-TC; 83735-TC; 84100-TC; 85025-TC; 85652-TC; 86140-TC; 87070-TC; 87081-TC; 87086-TC; 87186-TC; A6253; A6403; C9803; G0378; J0360; J0690; J0692; J0696; J1644; J1815; J3370; J7030; J7060

== ENCOUNTER 2022-06-10 20:20 | Inpatient (IN) | payer MEDICARE, OTHER ==
[~2022-06-10] VITALS: Ht 152.4 cm; Wt 63.5 kg
[~2022-06-10 20:20] MED LIST changes: +CEPH500C2 PO; -DOXY100T2 PO
--- NOTE | 2022-06-10 20:34 | NUR ---
MARKELL FROM HOME C/O WEAKNESS TODAY STATES SHE FEELS "LESS AWAKE". PT AWAKE AND ALERT ANSWERS QUESTIONS APPROPRIATELY, BREATHING UNLABORED TOLERATING RA WELL.PLACED ON MONITOR AND CHANGED INTO GOWN.
--- NOTE | 2022-06-10 20:48 | NUR ---
LOCOMOTIVE INSPECTOR AT PT'S BEDSIDE
[2022-06-10] MEDS ORDERED: IV NS 0.9% 1,000 ML BAG IV ONE (21:00)
--- NOTE | 2022-06-10 21:01 | NUR ---
URINE SENT TO LAB
--- NOTE | 2022-06-10 21:20 | NUR ---
PT TAKEN TO CT VIA [facility]
[2022-06-10 21:22] LABS: BASOPHILS # (AUTO) 0.1 K/uL (0.0-0.2); BASOPHILS % (AUTO) 0.9 % (0.0-2.0); EOSINOPHILS % (AUTO) 1.7 % (0.0-6.0); HEMATOCRIT 34 % (33-45); HEMOGLOBIN 11.8 g/dL (11.5-14.8); LYMPHOCYTES # (AUTO) 2.3 K/uL (0.8-4.8); LYMPHOCYTES % (AUTO) 34.1 % (20.0-44.0); MEAN CORPUSCULAR HGB CONC 34 g/dl (31.0-36.0); MEAN CORPUSCULAR VOLUME 91 fL (82-100); MONOCYTES # (AUTO) 0.5 K/uL (0.1-1.30); MONOCYTES % (AUTO) 7.8 % (2.0-12.0); NEUTROPHILS # (AUTO) 3.8 K/uL (1.8-8.9); NEUTROPHILS % (AUTO) 55.5 % (43.0-81.0); PLATELET COUNT (AUTO) 273 K/uL (150-450); RED BLOOD CELL COUNT(AUTO) 3.78 MIL/uL (4.0-5.2); WHITE BLOOD COUNT (AUTO) 6.8 K/uL (4.3-11.0)
[2022-06-10 21:35] LABS: BILIRUBIN,URINE NEGATIVE (NEGATIVE); COLOR,URINE YELLOW (YELLOW); LEUKOCYTE ESTERASE ,URINE 2+ (NEGATIVE); NITRITE, URINE NEGATIVE (NEGATIVE); PROTEIN,URINE 3+ mg/dl (NEGATIVE); UGLUCOSE 3+ mg/dL (NEGATIVE); UROBILINOGEN,URINE 0.2 EU/dL (0.2)
[2022-06-10 21:40] LABS: RBC,URINE 51-80 /HPF (0-2)
[2022-06-10 21:41] LABS: BACTERIA,URINE 3+ /HPF (None Seen); SQUAMOUS EPITHELIAL CELL,UR 0-2 /HPF (None Seen); WBC,URINE 21-50 /HPF (0-3)
[2022-06-10 21:48] LABS: ALANINE AMINOTRANSFERASE 8 U/L (12-78); ALBUMIN 2.4 g/dL (3.4-5.0); ALKALINE PHOSPHATASE 86 U/L (46-116); ASPARTATE AMINOTRANSFERASE 12 U/L (15-37); BILIRUBIN,DIRECT 0.1 mg/dL (0.0-0.2); BILIRUBIN,TOTAL 0.3 mg/dL (0.2-1.0); CALCIUM, SERUM 8.4 mg/dL (8.5-10.1); CARBON DIOXIDE 26 mmol/L (21-32); CHLORIDE 102 mmol/L (98-107); CREATININE 1.2 mg/dL (0.6-1.3); POTASSIUM 3.6 mmol/L (3.5-5.1); SODIUM SERUM 135 mmol/L (136-145); TOTAL PROTEIN, SERUM 6.5 g/dL (6.4-8.2); UREA NITROGEN, BLOOD 23 mg/dL (7-18)
[2022-06-10 22:10] LABS: GLUCOSE 418 mg/dL (74-106)
[2022-06-10] MEDS ORDERED: CEFTRIAXONE 1GM BAG (ER ONLY) 50 ML IV ONE (22:26)
[2022-06-10] MEDS ORDERED: CEFTRIAXONE 1 G in IV D5W 50 ML IV ONE (22:30)
[2022-06-10] MEDS ORDERED: INSULIN REGULAR, HUMAN 100 UNIT/ML 10 ML VIAL ONE (23:00)
[2022-06-10] MEDS ORDERED: INSULIN REGULAR, HUMAN 100 UNIT/ML 10 ML VIAL SQ ONE (23:00)
--- NOTE | 2022-06-10 23:47 | NUR ---
DRIED YEAST SUPERVISOR AT PT'S BEDSIDE
[2022-06-11] MEDS ORDERED: ACETAMINOPHEN 325 MG TABLET PO PRN
[2022-06-11] MEDS ORDERED: DEXTROSE 50%-WATER 50 ML DISP.SYRIN IV PRN
[2022-06-11] MEDS ORDERED: ONDANSETRON HCL/PF 4 MG/2 ML VIAL IVP PRN
[2022-06-11] MEDS ORDERED: IV NS 0.9% 1,000 ML IV PRN
--- NOTE | 2022-06-11 00:45 | NUR ---
poc bg [phone]
[2022-06-11 04:21] LABS: LIPASE 72 U/L (73-393)
--- NOTE | 2022-06-11 04:27 | NUR ---
PT SLEEPING COMOFETABLY BREATHING UNLABORED. CALL LIGHT IN REACH.
[2022-06-11 05:22] LABS: BASOPHILS % (AUTO) 0.6 % (0.0-2.0); EOSINOPHILS % (AUTO) 1.5 % (0.0-6.0); HEMATOCRIT 33 % (33-45); HEMOGLOBIN 11.7 g/dL (11.5-14.8); LYMPHOCYTES # (AUTO) 2.2 K/uL (0.8-4.8); LYMPHOCYTES % (AUTO) 30.4 % (20.0-44.0); MEAN CORPUSCULAR HGB CONC 35 g/dl (31.0-36.0); MEAN CORPUSCULAR VOLUME 90 fL (82-100); MONOCYTES # (AUTO) 0.5 K/uL (0.1-1.30); MONOCYTES % (AUTO) 7.3 % (2.0-12.0); NEUTROPHILS # (AUTO) 4.3 K/uL (1.8-8.9); NEUTROPHILS % (AUTO) 60.2 % (43.0-81.0); PLATELET COUNT (AUTO) 309 K/uL (150-450); RED BLOOD CELL COUNT(AUTO) 3.68 MIL/uL (4.0-5.2); WHITE BLOOD COUNT (AUTO) 7.2 K/uL (4.3-11.0)
[2022-06-11 05:47] LABS: CALCIUM, SERUM 9.4 mg/dL (8.5-10.1); CREATININE 1.3 mg/dL (0.6-1.3); PHOSPHORUS 2.8 mg/dL (2.5-4.9); POTASSIUM 3.5 mmol/L (3.5-5.1)
[2022-06-11] MEDS: BLOOD SUGAR DIAGNOSTIC 1 EACH STRIP VI SCH ×4 (07:57→21:29)
--- NOTE | 2022-06-11 07:58 | NUR ---
ACCUCHECK DONE, BLOOD GLUCOSE 135MG/DL
--- NOTE | 2022-06-11 08:11 | NUR ---
HOUSE SUP WILL CALL FOR BED
--- NOTE | 2022-06-11 11:00 | NUR ---
ROOM 310-1
--- NOTE | 2022-06-11 11:23 | NUR ---
PT REPORT GIVEN TO SOL POND
--- NOTE | 2022-06-11 11:30 | NUR ---
PHYSICAL THERAPIST AT BEDSIDE FOR EVAL
--- NOTE | 2022-06-11 12:10 | NUR ---
RN Receiving Report. Patient arrived to unit safely. Patient AOx4 able to express her own concerns. No signs or symptoms of distress. Patient able to move all extremities but not able to ambulate. Picture taken of perineal redness and hardware/screw visible on left ankle (pictures taken and filed). All safety precautions taken, introduced patients to unit. Call light and table within reach, bed at lowest position. Will continue to monitor.
--- NOTE | 2022-06-11 12:23 | NUR ---
PT DILAN VIA [facility] TO MED SURG FLOOR
[2022-06-11 12:30] VITALS: BP 163/73
[2022-06-11] MEDS ORDERED: ATOR20TA PO (12:52)
[2022-06-11] MEDS ORDERED: LOSA100T31 PO (12:52)
[2022-06-11] MEDS ORDERED: INSU100V7 SQ (12:52)
[2022-06-11] MEDS ORDERED: AMLO-212 PO (12:52)
[2022-06-11] MEDS ORDERED: ASPI-1420 PO (12:52)
[2022-06-11] MEDS ORDERED: INSU100V28 SQ (12:52)
[2022-06-11] MEDS ORDERED: FERR325T23 PO (12:52)
[2022-06-11] MEDS ORDERED: FAMO20TA8 PO (12:52)
[2022-06-11] MEDS ORDERED: LEVE500T20 PO (12:52)
[2022-06-11] MEDS ORDERED: MEMA10TA PO (12:52)
[2022-06-11] MEDS ORDERED: ASCO-352 PO (12:52)
[2022-06-11] MEDS: AMLODIPINE BESYLATE 5 MG TABLET PO SCH (13:29)
[2022-06-11] MEDS: LOSARTAN POTASSIUM 25 MG TABLET PO SCH (13:30)
[2022-06-11] MEDS: *INSULIN REGULAR(HUMULIN R)HUM 100 UNIT/ML VIAL SQ PRN ×2 (13:39→21:31)
[2022-06-11 16:00] VITALS: BP 149/64
[2022-06-11] MEDS: LEVETIRACETAM (250 MG) 250 MG TABLET PO SCH (17:36)
[2022-06-11] MEDS: INSULIN REGULAR, HUMAN 100 UNIT/ML 3 ML VIAL SQ PRN (17:37)
[2022-06-11] MEDS: INSULIN GLARGINE, 100 UNIT/ML CARTRIDGE SQ SCH (18:14)
[2022-06-11] MEDS: ENOXAPARIN SODIUM 40 MG/0.4 ML DISP.SYRIN SQ SCH (18:15)
--- NOTE | 2022-06-11 18:37 | NUR ---
RN Closing Note Patient AOx4 able to express her own concern. Patient remained safe throughout shift, IV fluids running as ordered. Medications administered as prescribed, care provided as needed. All safety precautions taken, call light and table within reach, bed at lowest position. Will endorse to night nurse for continuity of care.
--- NOTE | 2022-06-11 19:43 | NUR ---
RN Opening Note Patient AOx4 able to express her own concerns care provided as needed. All safety precautions taken, call light and table within reach, bed at lowest position.
[2022-06-11 20:00] VITALS: BP 107/71
[2022-06-11] MEDS: CEFTRIAXONE 1 G in IV D5W 50 ML IV SCH (21:29)
[2022-06-12] MEDS: *INSULIN REGULAR(HUMULIN R)HUM 100 UNIT/ML VIAL SQ PRN ×3 (06:20→21:57)
--- NOTE | 2022-06-12 06:39 | NUR ---
RN Closing Note Patient AOx4 able to express her own concerns care provided as needed. iv fluids running as ordered. all due meds given as ordered tolerated well. All safety precautions taken, call light and table within reach, bed at lowest position.will endorse care to day shift nurse.
[2022-06-12 07:06] LABS: BASOPHILS # (AUTO) 0.1 K/uL (0.0-0.2); BASOPHILS % (AUTO) 0.8 % (0.0-2.0); HEMATOCRIT 34 % (33-45); HEMOGLOBIN 11.5 g/dL (11.5-14.8); LYMPHOCYTES # (AUTO) 2.7 K/uL (0.8-4.8); LYMPHOCYTES % (AUTO) 40.5 % (20.0-44.0); MEAN CORPUSCULAR HGB CONC 34 g/dl (31.0-36.0); MEAN CORPUSCULAR VOLUME 92 fL (82-100); MONOCYTES # (AUTO) 0.4 K/uL (0.1-1.30); MONOCYTES % (AUTO) 6.6 % (2.0-12.0); NEUTROPHILS # (AUTO) 3.5 K/uL (1.8-8.9); NEUTROPHILS % (AUTO) 51.1 % (43.0-81.0); PLATELET COUNT (AUTO) 253 K/uL (150-450); RED BLOOD CELL COUNT(AUTO) 3.68 MIL/uL (4.0-5.2); WHITE BLOOD COUNT (AUTO) 6.8 K/uL (4.3-11.0)
[2022-06-12 07:18] LABS: CALCIUM, SERUM 9.4 mg/dL (8.5-10.1); CREATININE 1.2 mg/dL (0.6-1.3); MAGNESIUM 2.1 mg/dL (1.8-2.4); POTASSIUM 3.8 mmol/L (3.5-5.1)
--- NOTE | 2022-06-12 07:30 | NUR ---
RN opening Note Patient AOx4 able to express her concerns, Patient states no pain or discomfort. Fluids running as ordered, Iv with no signs of infiltration. Discussed plan of care, pt states she is interested in discharging to a facility and before going home. Will follow up with d/c transportation planner. All safety precautions taken, call light and table within reach and bed at lowest position.
[2022-06-12] MEDS: BLOOD SUGAR DIAGNOSTIC 1 EACH STRIP VI SCH ×4 (07:41→21:42)
[2022-06-12] MEDS: LEVETIRACETAM (250 MG) 250 MG TABLET PO SCH ×2 (08:43→17:13)
[2022-06-12] MEDS: LOSARTAN POTASSIUM 25 MG TABLET PO SCH (08:43)
[2022-06-12] MEDS: AMLODIPINE BESYLATE 5 MG TABLET PO SCH (08:44)
[2022-06-12] MEDS: ENOXAPARIN SODIUM 40 MG/0.4 ML DISP.SYRIN SQ SCH (08:46)
[2022-06-12] MEDS: INSULIN GLARGINE, 100 UNIT/ML CARTRIDGE SQ SCH ×2 (09:06→17:16)
[2022-06-12] MEDS: Z GUARD REMEDY 4 OZ OINT TP SCH (15:07)
[2022-06-12] MEDS: INSULIN REGULAR, HUMAN 100 UNIT/ML 3 ML VIAL SQ PRN (17:17)
[2022-06-12 18:23] VITALS: BP 163/63
[2022-06-12 18:24] VITALS: BP 137/56
[2022-06-12 20:00] VITALS: BP 116/44
[2022-06-12] MEDS: CEFTRIAXONE 1 G in IV D5W 50 ML IV SCH (21:42)
[2022-06-13] MEDS: INSULIN REGULAR, HUMAN 100 UNIT/ML 3 ML VIAL SQ PRN ×3 (05:58→16:55)
[2022-06-13] MEDS: BLOOD SUGAR DIAGNOSTIC 1 EACH STRIP VI SCH ×4 (06:33→22:02)
--- NOTE | 2022-06-13 06:37 | NUR ---
RN Closing Note Patient AOx4 able to express her concerns, Patient states no pain or discomfort. Fluids running as ordered, Iv with no signs of infiltration. Discussed plan of care, pt states she is interested in discharging to a facility and before going home. Will follow up with d/c exercise planner. All safety precautions taken, call light and table within reach and bed at lowest position. will endorse care to day shift nurse.
[2022-06-13 08:23] VITALS: BP 146/64
--- NOTE | 2022-06-13 09:53 | NUR ---
WOUND CARE CONSULT: PT WORKING WITH P.T. AT THIS TIME. PT WAS NOTED TO HAVE OPEN WOUND (CHRONIC) TO LEFT ANKLE WITH HARDWARE EXPOSURE AND RASH TO PERINEUM AND BUTTOCKS, PRESENT ON ADMISSION. RECOMMENDATION MADE FOR SKIN PROTECTION. DISCUSSED WITH NURSING STAFF. DR PICKETT CALLED FOR DPM CONSULT. IN AGREEMENT WITH PLAN OF CARE.
[2022-06-13] MEDS: LEVETIRACETAM (250 MG) 250 MG TABLET PO SCH ×2 (10:26→16:31)
[2022-06-13] MEDS: AMLODIPINE BESYLATE 5 MG TABLET PO SCH (10:26)
[2022-06-13] MEDS: LOSARTAN POTASSIUM 25 MG TABLET PO SCH (10:27)
[2022-06-13] MEDS: Z GUARD REMEDY 4 OZ OINT TP SCH (10:27)
[2022-06-13] MEDS: INSULIN GLARGINE, 100 UNIT/ML CARTRIDGE SQ SCH ×2 (10:30→16:54)
[2022-06-13] MEDS: ENOXAPARIN SODIUM 40 MG/0.4 ML DISP.SYRIN SQ SCH (10:31)
[2022-06-13] MEDS ORDERED: CIPR500T5 PO (15:48)
[2022-06-13 16:54] VITALS: BP 162/75
[2022-06-13] MEDS ORDERED: CLOTRIMAZOLE 1% 15 GM TUBE TP SCH (17:00)
--- NOTE | 2022-06-13 18:20 | NUR ---
MS RN CLOSING NOTE PATIENT RECEIVED IN BED AND RESTING. A/O X 3-4 AND KENYAN SPEAKING AND ABLE TO VERBALIZE NEEDS. PATIENT CONTINUES TO HAVE GENERALIZED WEAKNESS. IV ACCESS TO RAC INTACT AND PATENT. TOLERATED ALL MEALS AND MEDICATIONS WELL. BS ON SHIFT 1200: 267 9UNITS GIVEN & 1700: 226 6UNITS GIVEN. TOLERATED WELL. PATIENT SCHEDULED FOR DISCHARGE HOME AND PICKUP FROM UNIT VIA AMBULANCE @ 2100. WILL ENDORSE TO ONCOMING NURSE. SAFETY MEASURES IN PLACE WITH BED LOW AND LOCKED. SIDE-RAIL UP X2 WITH CALL LIGHT WITHIN REACH. WILL CONTINUE TO MONITOR.
--- NOTE | 2022-06-13 19:30 | NUR ---
teri rn opening received patient in bed, a/ox3-4. no s/s of apparent distress on room air. denies pain at this time. call light within reach, re-oriented and encouraged with the use of call light. safety in place. patient for discharge tonight @2100 as endorsed, will continue with the plan for d/c for patient.
--- NOTE | 2022-06-13 21:05 | NUR ---
noc rn note called [facility] [phone] to follow up for patient pick-up supposedly @2100, per them ambulance is just dropping off someone in the ER right now and should be here soon. will call daughter for update.
--- NOTE | 2022-06-13 21:30 | NUR ---
noc rn note got off the phone with daughter Renee, #[phone], family aware about patient going home. Reminded patient f/u with provider 1 week from now and about the new prescription for antibiotic that was sent to the Pharmacy already. Daughter acknowledged.
[2022-06-13] MEDS: *INSULIN REGULAR(HUMULIN R)HUM 100 UNIT/ML VIAL SQ PRN (22:03)
--- NOTE | 2022-06-13 22:28 | NUR ---
PUBLIC ADDRESS SYSTEM INSTALLER NOTE PATIENT ROLLED DOWN BY 2 EMT AT THIS TIME VIA STRETCHER. A/OX4. NO S/S OF APPARENT DISTRESS ON ROOM AIR. DENIES PAIN NOR DISCOMFORT. ID BAND DISCARDED. 2 IV ACCESS REMOVED. PATIENT IS IN STABLE CONDITION WEARING HER OWN PERSONAL CLOTHING. DISCHARGED PAPERS SIGNED BY PATIENT. BELONGINGS ACCOUNTED FOR. FAMILY MEMBERS AWARE OF PATIENT GOING HOME AND ARE WAITING AT HOME FOR HER. BLOOD SUGAR 92. V/S FOLLOWS: 153/66, HR-78, RR-20, T-98.2, SATURATION 98% ON ROOM AIR.
== END 2022-06-13 22:30 | disposition home or self-care (01) | DRG 637 ==
LOC: ER 20:33 → TRANSITION 06-11 02:44 → TELE 06-11 12:07 → MED 06-11 13:36
PROVIDERS: ADMIT Nurse Practitioner Acute Care; ATTEND Student in an Organized Health Care Education/Training Program
DX: E11.65 Type 2 diabetes mellitus with hyperglycemia (principal); G93.41 Metabolic encephalopathy; E44.0 Moderate protein-calorie malnutrition; E87.1 Hypo-osmolality and hyponatremia; N39.0 Urinary tract infection, site not specified; L03.116 Cellulitis of left lower limb; L97.329 Non-pressure chronic ulcer of left ankle with unspecified severity; I69.354 Hemiplegia and hemiparesis following cerebral infarction affecting left non-dominant side; E86.0 Dehydration; I10 Essential (primary) hypertension; Z96.662 Presence of left artificial ankle joint; Z79.4 Long term (current) use of insulin; Z79.82 Long term (current) use of aspirin; Z79.899 Other long term (current) drug therapy; E11.40 Type 2 diabetes mellitus with diabetic neuropathy, unspecified; E88.09 Other disorders of plasma-protein metabolism, not elsewhere classified; B96.89 Other specified bacterial agents as the cause of diseases classified elsewhere; E11.622 Type 2 diabetes mellitus with other skin ulcer; E87.8 Other disorders of electrolyte and fluid balance, not elsewhere classified; Z91.199 Patient's noncompliance with other medical treatment and regimen due to unspecified reason; M20.41 Other hammer toe(s) (acquired), right foot; E11.621 Type 2 diabetes mellitus with foot ulcer; M20.42 Other hammer toe(s) (acquired), left foot; F17.210 Nicotine dependence, cigarettes, uncomplicated; Z96.649 Presence of unspecified artificial hip joint; Z83.3 Family history of diabetes mellitus; G93.89 Other specified disorders of brain; M62.50 Muscle wasting and atrophy, not elsewhere classified, unspecified site
CPT/HCPCS: 36415; 70450-TC; 71045-TC; 80048-TC; 80076-TC; 81001; 82010-TC; 82962-TC; 83605-TC; 83690-TC; 83735-TC; 84100-TC; 84484-TC; 85025-TC; 87081-TC; 87086-TC; 87186-TC; 97110-TC; 97112-TC; 97530-TC; A6253; C9803; G0378; J0696; J1650; J1815; J2405; J7030; J7060

== ENCOUNTER 2022-08-29 19:13 | Emergency (ER) | payer MEDICARE, OTHER ==
[~2022-08-29] VITALS: Ht 152.4 cm; Wt 46.7 kg
[~2022-08-29 19:13] MED LIST changes: -ACET325T53 PO; +ASCO-352 PO; -CEPH500C2 PO; +CIPR500T5 PO; +FERR325T23 PO; +INSU100V28 SQ; +MEMA10TA PO
--- NOTE | 2022-08-29 19:24 | NUR ---
bibra88 from home c/o high BS at home per ems 490 bs. C/O nausea. Pt A/Ox3. Tolerating R/A well with no resp distress. Connected pt To POX and monitor. Safety measures in place.
[2022-08-29] MEDS ORDERED: IV NS 0.9% 1,000 ML BAG IV ONE (19:30)
[2022-08-29] MEDS ORDERED: ONDANSETRON HCL/PF 4 MG/2 ML VIAL IVP ONE (19:30)
[2022-08-29] MEDS ORDERED: ONDANSETRON HCL/PF 4 MG/2 ML VIAL ONE (19:44)
--- NOTE | 2022-08-29 19:57 | NUR ---
R MIKKI #20G S/L BLOOD COLLECTED AND SENT TO LAB
--- NOTE | 2022-08-29 20:10 | NUR ---
URINE COLLECTED AND SENT TO LAB
[2022-08-29 20:14] LABS: BASOPHILS % (AUTO) 0.7 % (0.0-2.0); EOSINOPHILS % (AUTO) 1.2 % (0.0-6.0); HEMATOCRIT 38 % (33-45); HEMOGLOBIN 12.5 g/dL (11.5-14.8); LYMPHOCYTES # (AUTO) 2.1 K/uL (0.8-4.8); LYMPHOCYTES % (AUTO) 28.6 % (20.0-44.0); MEAN CORPUSCULAR HGB CONC 33 g/dl (31.0-36.0); MEAN CORPUSCULAR VOLUME 93 fL (82-100); MONOCYTES # (AUTO) 0.5 K/uL (0.1-1.30); MONOCYTES % (AUTO) 6.6 % (2.0-12.0); NEUTROPHILS # (AUTO) 4.5 K/uL (1.8-8.9); NEUTROPHILS % (AUTO) 62.9 % (43.0-81.0); PLATELET COUNT (AUTO) 178 K/uL (150-450); RED BLOOD CELL COUNT(AUTO) 4.04 MIL/uL (4.0-5.2); WHITE BLOOD COUNT (AUTO) 7.2 K/uL (4.3-11.0)
[2022-08-29 20:35] LABS: BILIRUBIN,URINE NEGATIVE (NEGATIVE); COLOR,URINE YELLOW (YELLOW); LEUKOCYTE ESTERASE ,URINE 2+ (NEGATIVE); NITRITE, URINE NEGATIVE (NEGATIVE); PROTEIN,URINE 2+ mg/dl (NEGATIVE); UGLUCOSE TRACE mg/dL (NEGATIVE); UROBILINOGEN,URINE 0.2 EU/dL (0.2)
[2022-08-29 20:46] LABS: BILIRUBIN,DIRECT 0.1 mg/dL (0.0-0.2); BILIRUBIN,TOTAL 0.3 mg/dL (0.2-1.0); CALCIUM, SERUM 9.3 mg/dL (8.5-10.1); CREATININE 1.3 mg/dL (0.6-1.3); POTASSIUM 3.7 mmol/L (3.5-5.1); TOTAL PROTEIN, SERUM 7.6 g/dL (6.4-8.2)
[2022-08-29 20:56] LABS: BACTERIA,URINE 3+ /HPF (None Seen); SQUAMOUS EPITHELIAL CELL,UR 0-2 /HPF (None Seen); WBC,URINE 21-50 /HPF (0-3); YEAST,URINE Many /HPF (None Seen)
[2022-08-29] MEDS ORDERED: CEFTRIAXONE 1GM BAG (ER ONLY) 1 GM/50 ML PIGGYBACK IV ONE (21:30)
[2022-08-29] MEDS ORDERED: CEFTRIAXONE 1GM BAG (ER ONLY) 50 ML IV ONE (21:30)
[2022-08-29] MEDS ORDERED: FLUCONAZOLE (100 MG) 100 MG TABLET PO ONE (21:30)
[2022-08-29] MEDS ORDERED: INSULIN REGULAR, HUMAN 100 UNIT/ML 10 ML VIAL SQ ONE (21:30)
[2022-08-29] MEDS ORDERED: CEPH500C2 PO (22:04)
--- NOTE | 2022-08-29 22:10 | NUR ---
UPDATED DAUGHTER [place]K [place] [id number] [address] [place].
--- NOTE | 2022-08-29 22:35 | NUR ---
[facility] ETA 60-90 MINS
[2022-08-30 01:04] VITALS: BP 140/81
--- NOTE | 2022-08-30 01:05 | NUR ---
Patient discharged to home in stable condition [facility]IA [facility]. VSS. Report given to [facility] EMT
== END 2022-08-30 01:46 | disposition home or self-care (01) ==
LOC: ER 19:14
DX: N39.0 Urinary tract infection, site not specified (principal); E11.65 Type 2 diabetes mellitus with hyperglycemia; I10 Essential (primary) hypertension; Z79.899 Other long term (current) drug therapy
CPT/HCPCS: 99284; 96365; 96361; 96375; 85025; 80048; 87086; 82010; 83690; 80076; 81001; 36415; 82962; J2405; J7030; J0696

== ENCOUNTER 2022-12-17 20:59 | Emergency (ER) | payer OTHER ==
[~2022-12-17] VITALS: Ht 152.4 cm; Wt 44.6 kg
[~2022-12-17 20:59] MED LIST changes: +CEPH500C2 PO
--- NOTE | 2022-12-17 21:20 | NUR ---
Pt is noted responsive as she is brought in from home C/O Right Leg pain due to S/P Fall off her bed and also Blood Gulose was high in field. Pt care continue as awaits MD orders.
[2022-12-17] MEDS ORDERED: ONDANSETRON HCL/PF 4 MG/2 ML VIAL ONE (21:26)
[2022-12-17] MEDS ORDERED: MORPHINE SULFATE INJ 2 MG/ML DISP.SYRIN ONE (21:27)
[2022-12-17] MEDS ORDERED: INSULIN REGULAR, HUMAN 100 UNIT/ML 10 ML VIAL ONE (21:27)
[2022-12-17] MEDS ORDERED: INSULIN REGULAR, HUMAN 100 UNIT/ML 10 ML VIAL SQ ONE (21:30)
[2022-12-17] MEDS ORDERED: IV NS 0.9% 1,000 ML BAG IV ONE (21:30)
[2022-12-17] MEDS ORDERED: MORPHINE SULFATE INJ 2 MG/ML DISP.SYRIN IV ONE (21:30)
[2022-12-17] MEDS ORDERED: ONDANSETRON HCL/PF 4 MG/2 ML VIAL IVP ONE (21:30)
--- NOTE | 2022-12-17 21:30 | NUR ---
Pt is been Medicated with Regular insulin 10units SUBQ for Blood Gulose off 351, 0.9NS [id number], Morphine 2mg IVP and Zofran 4mg IVP and 16Fr Zee cath inserted. Pt care continue .
[2022-12-17 22:42] LABS: BASOPHILS # (AUTO) 0.1 K/uL (0.0-0.2); BASOPHILS % (AUTO) 0.9 % (0.0-2.0); EOSINOPHILS % (AUTO) 0.3 % (0.0-6.0); HEMATOCRIT 29 % (33-45); HEMOGLOBIN 9.7 g/dL (11.5-14.8); LYMPHOCYTES # (AUTO) 1.1 K/uL (0.8-4.8); MEAN CORPUSCULAR HGB CONC 33 g/dl (31.0-36.0); MEAN CORPUSCULAR VOLUME 90 fL (82-100); MONOCYTES # (AUTO) 0.4 K/uL (0.1-1.30); MONOCYTES % (AUTO) 5.3 % (2.0-12.0); NEUTROPHILS # (AUTO) 5.9 K/uL (1.8-8.9); NEUTROPHILS % (AUTO) 78.5 % (43.0-81.0); PLATELET COUNT (AUTO) 231 K/uL (150-450); RED BLOOD CELL COUNT(AUTO) 3.24 MIL/uL (4.0-5.2); WHITE BLOOD COUNT (AUTO) 7.5 K/uL (4.3-11.0)
[2022-12-17 23:02] LABS: ALBUMIN 2.1 g/dL (3.4-5.0); BILIRUBIN,DIRECT 0.1 mg/dL (0.0-0.2); BILIRUBIN,TOTAL 0.4 mg/dL (0.2-1.0); CALCIUM, SERUM 8.6 mg/dL (8.5-10.1); CREATININE 1.3 mg/dL (0.6-1.3); POTASSIUM 3.5 mmol/L (3.5-5.1); TOTAL PROTEIN, SERUM 6.5 g/dL (6.4-8.2)
[2022-12-17 23:15] LABS: COLOR,URINE YELLOW (YELLOW)
[2022-12-17 23:16] LABS: BILIRUBIN,URINE NEGATIVE (NEGATIVE); PROTEIN,URINE 2+ mg/dl (NEGATIVE); UGLUCOSE >=2000 MG/DL mg/dL (NEGATIVE)
[2022-12-17 23:17] LABS: UROBILINOGEN,URINE 0.2 EU/dL (0.2)
[2022-12-17 23:18] LABS: LEUKOCYTE ESTERASE ,URINE 3+ (NEGATIVE); NITRITE, URINE NEGATIVE (NEGATIVE)
[2022-12-17 23:23] LABS: BACTERIA,URINE 1+ /HPF (None Seen); MUCUS,URINE Moderate /LPF (None Seen); RBC,URINE NONE SEEN /HPF (0-2); SQUAMOUS EPITHELIAL CELL,UR Few /HPF (None Seen); WBC,URINE TOO NUMEROUS TO COUN /HPF (0-3); YEAST,URINE Many /HPF (None Seen)
--- NOTE | 2022-12-17 23:46 | NUR ---
Pt care continue as a repeat off Blood Gulcose is 272 and MD is aware. Pt care continue.
--- NOTE | 2022-12-17 23:46 | NUR ---
JACQUE EPRP PAGED PER DR CAMP.
[2022-12-17] MEDS ORDERED: CEFTRIAXONE 1GM BAG (ER ONLY) 50 ML IV ONE (23:57)
--- NOTE | 2022-12-17 23:59 | NUR ---
Pt remain responsive with Rocephin 1g IVPB given as ordered. Pt care continue.
[2022-12-18] MEDS ORDERED: CEFTRIAXONE 1GM BAG (ER ONLY) 1 GM/50 ML PIGGYBACK IV ONE
--- NOTE | 2022-12-18 01:24 | NUR ---
Pt care continue as she is prossible transferred out to [place]. Pt care continue.
[2022-12-18 02:00] VITALS: BP 113/53
--- NOTE | 2022-12-18 02:29 | NUR ---
Patient Tranfers to outside Facility Physician:Dr. Fournier Location:[facility] room 4116-A number for report [phone] PRN ambulance BLS ETA 0330 am [facility]
--- NOTE | 2022-12-18 02:47 | NUR ---
Renee Gregg notify off Transferred to [place] by called at [phone]. Pt care continue asb awaits transport with ETA 0330AM.
--- NOTE | 2022-12-18 03:30 | NUR ---
Pt care continue as Report is given to the [facility] SOL Jacey by calling [phone] as Pt will be under the care off DR. Fournier and Room 4116-A. Pt care continue.
--- NOTE | 2022-12-18 03:31 | NUR ---
Pt is noted off the unit to [facility] Room 4116-A by Ambulace with no S/S off distress.
== END 2022-12-18 03:30 | disposition short-term general hospital (02) ==
LOC: ER 21:02
DX: S72.121A Displaced fracture of lesser trochanter of right femur, initial encounter for closed fracture (principal); E11.65 Type 2 diabetes mellitus with hyperglycemia; E86.0 Dehydration; N39.0 Urinary tract infection, site not specified; I10 Essential (primary) hypertension; Z20.822 Contact with and (suspected) exposure to COVID-19; Z79.899 Other long term (current) drug therapy; Z79.82 Long term (current) use of aspirin; W06.XXXA Fall from bed, initial encounter; Y93.89 Activity, other specified; Y92.89 Other specified places as the place of occurrence of the external cause; Y99.8 Other external cause status
CPT/HCPCS: 99285; 96365; 71045; 96375; 96361; 72170; 73552; 85025; 80048; 87086; 83690; 80076; 81001; 36415; 82962; 96372; 87426; J1815; J2405; J7030; A4223; J2270; J0696; C9803

== ENCOUNTER 2022-12-25 11:59 | Emergency (ER) | payer OTHER ==
[~2022-12-25] VITALS: Ht 162.6 cm; Wt 62.6 kg
--- NOTE | 2022-12-25 12:59 | NUR ---
BIBRA88 FROM HOME FOR DIZZINESS AND HYPERGLYCEMIA BG 383 ON SCENE. bld sugar 297
--- NOTE | 2022-12-25 13:02 | NUR ---
kiel drawn and sent to lab
--- NOTE | 2022-12-25 13:04 | NUR ---
pt is AOX4, NON AMBULATORY, PARALIZED LEFT SIDE.
[2022-12-25] MEDS ORDERED: ONDANSETRON HCL/PF 4 MG/2 ML VIAL ONE (13:15)
[2022-12-25] MEDS ORDERED: IV NS 0.9% 1,000 ML BAG IV ONE (13:30)
[2022-12-25] MEDS ORDERED: ONDANSETRON HCL/PF 4 MG/2 ML VIAL IVP ONE (13:30)
--- NOTE | 2022-12-25 13:40 | NUR ---
MARCIA HERNÁNDEZ BROUGHT PT TO CT SCAN VIA [facility]
[2022-12-25 13:50] LABS: BASOPHILS # (AUTO) 0.1 K/uL (0.0-0.2); BASOPHILS % (AUTO) 1.1 % (0.0-2.0); EOSINOPHILS % (AUTO) 0.5 % (0.0-6.0); HEMATOCRIT 35 % (33-45); HEMOGLOBIN 11.4 g/dL (11.5-14.8); LYMPHOCYTES # (AUTO) 1.8 K/uL (0.8-4.8); LYMPHOCYTES % (AUTO) 24.5 % (20.0-44.0); MEAN CORPUSCULAR HGB CONC 33 g/dl (31.0-36.0); MEAN CORPUSCULAR VOLUME 93 fL (82-100); MONOCYTES # (AUTO) 0.5 K/uL (0.1-1.30); MONOCYTES % (AUTO) 6.4 % (2.0-12.0); NEUTROPHILS # (AUTO) 4.9 K/uL (1.8-8.9); NEUTROPHILS % (AUTO) 67.5 % (43.0-81.0); PLATELET COUNT (AUTO) 315 K/uL (150-450); RED BLOOD CELL COUNT(AUTO) 3.75 MIL/uL (4.0-5.2); WHITE BLOOD COUNT (AUTO) 7.3 K/uL (4.3-11.0)
--- NOTE | 2022-12-25 14:00 | NUR ---
PT BACK FROM CT VIA [facility] [place]
[2022-12-25 14:08] LABS: CALCIUM, SERUM 9.1 mg/dL (8.5-10.1)
[2022-12-25 14:13] LABS: ALBUMIN 2.4 g/dL (3.4-5.0); BILIRUBIN,DIRECT 0.2 mg/dL (0.0-0.2); BILIRUBIN,TOTAL 0.9 mg/dL (0.2-1.0); TOTAL PROTEIN, SERUM 7.3 g/dL (6.4-8.2)
--- NOTE | 2022-12-25 15:46 | NUR ---
DR SALVADOR AT BEDSIDE FOR EVAL
--- NOTE | 2022-12-25 16:17 | NUR ---
in and out done urine collected and sent to lab
--- NOTE | 2022-12-25 16:18 | NUR ---
Aishwarya TALKED TO DR SALVADOR REGARDING HER MOM. SHE HER TO BE ON A REHAB FACILITY
--- NOTE | 2022-12-25 16:24 | NUR ---
CALLED [facility] [phone] DR. WHITE WILL CALL US BACK PER COLETTE.
--- NOTE | 2022-12-25 17:10 | NUR ---
ACCEPTANCE INFO: [facility] ER [phone] FOR REPORT [facility] TRANSPORT ETA [address] HERNANDEZ.
--- NOTE | 2022-12-25 17:35 | NUR ---
pt being transferred to [facility]. GAVE REPORT TO SOL MILLARD AT 1731 FOR CONTINUATION OF CARE.
[2022-12-25 18:07] LABS: BILIRUBIN,URINE NEGATIVE (NEGATIVE); COLOR,URINE YELLOW (YELLOW); LEUKOCYTE ESTERASE ,URINE 3+ (NEGATIVE); NITRITE, URINE NEGATIVE (NEGATIVE); PROTEIN,URINE 2+ mg/dl (NEGATIVE); UGLUCOSE 2+ mg/dL (NEGATIVE); UROBILINOGEN,URINE 0.2 EU/dL (0.2)
--- NOTE | 2022-12-25 18:13 | NUR ---
GIVEN REPORT TO ANG FOR TRANSPORT OF PT TO [place].
[2022-12-25 18:32] VITALS: BP 144/62; TEMP 98.3
[2022-12-25 19:20] LABS: RBC,URINE 51-80 /HPF (0-2)
[2022-12-25 19:21] LABS: BACTERIA,URINE Many /HPF (None Seen); SQUAMOUS EPITHELIAL CELL,UR Few /HPF (None Seen); WBC,URINE 81-100 /HPF (0-3); YEAST,URINE Many /HPF (None Seen)
== END 2022-12-25 18:33 | disposition short-term general hospital (02) ==
LOC: ER 12:00
DX: E11.65 Type 2 diabetes mellitus with hyperglycemia (principal); R93.89 Abnormal findings on diagnostic imaging of other specified body structures; I10 Essential (primary) hypertension; R51.9 Headache, unspecified; Z79.899 Other long term (current) drug therapy; Z79.4 Long term (current) use of insulin; Z79.82 Long term (current) use of aspirin; Z20.822 Contact with and (suspected) exposure to COVID-19
CPT/HCPCS: 99285; 96374; 70450; 71045; 96361; 87426; 93005; 85025; 80048; 87086; 82010; 80076; 81001; 36415; 82962 ×2; J2405; J7030; C9803

== ENCOUNTER 2023-03-22 14:42 | Emergency (ER) | payer OTHER ==
[~2023-03-22] VITALS: Ht 162.6 cm; Wt 59.0 kg
[2023-03-22] MEDS ORDERED: diphenhydrAMINE HCL 50 MG/ML VIAL ONE (16:20)
[2023-03-22] MEDS ORDERED: METOCLOPRAMIDE HCL 10 MG/2 ML VIAL ONE (16:21)
[2023-03-22] MEDS ORDERED: ACETAMINOPHEN ES 500 MG TABLET ONE (16:21)
[2023-03-22] MEDS ORDERED: METOCLOPRAMIDE HCL 10 MG/2 ML VIAL IV ONE (16:30)
[2023-03-22] MEDS ORDERED: diphenhydrAMINE HCL 50 MG/ML VIAL IV ONE (16:30)
[2023-03-22] MEDS ORDERED: ACETAMINOPHEN ES 500 MG TABLET PO ONE (16:30)
[2023-03-22 16:34] LABS: BASOPHILS % (AUTO) 0.9 % (0.0-2.0); EOSINOPHILS % (AUTO) 0.7 % (0.0-6.0); HEMATOCRIT 32 % (33-45); HEMOGLOBIN 11.1 g/dL (11.5-14.8); LYMPHOCYTES # (AUTO) 1.4 K/uL (0.8-4.8); LYMPHOCYTES % (AUTO) 29.1 % (20.0-44.0); MEAN CORPUSCULAR HEMOGLOBIN 32 PG (26.0-33.0); MEAN CORPUSCULAR HGB CONC 34 g/dl (31.0-36.0); MEAN CORPUSCULAR VOLUME 93 fL (82-100); MONOCYTES # (AUTO) 0.4 K/uL (0.1-1.30); MONOCYTES % (AUTO) 7.8 % (2.0-12.0); NEUTROPHILS # (AUTO) 2.9 K/uL (1.8-8.9); NEUTROPHILS % (AUTO) 61.5 % (43.0-81.0); PLATELET COUNT (AUTO) 255 K/uL (150-450); WHITE BLOOD COUNT (AUTO) 4.8 K/uL (4.3-11.0)
[2023-03-22 16:47] LABS: ALANINE AMINOTRANSFERASE 22 U/L (12-78); ALBUMIN 2.9 g/dL (3.4-5.0); ALKALINE PHOSPHATASE 218 U/L (46-116); ASPARTATE AMINOTRANSFERASE 15 U/L (15-37); BILIRUBIN,DIRECT 0.1 mg/dL (0.0-0.2); BILIRUBIN,TOTAL 0.3 mg/dL (0.2-1.0); CALCIUM, SERUM 9.5 mg/dL (8.5-10.1); CARBON DIOXIDE 26 mmol/L (21-32); CHLORIDE 102 mmol/L (98-107); CREATININE 1.6 mg/dL (0.6-1.3); GLUCOSE 376 mg/dL (74-106); LIPASE 115 U/L (73-393); POTASSIUM 4.5 mmol/L (3.5-5.1); SODIUM SERUM 135 mmol/L (136-145); TOTAL PROTEIN, SERUM 8.1 g/dL (6.4-8.2); UREA NITROGEN, BLOOD 36 mg/dL (7-18)
[2023-03-22 21:37] VITALS: BP 131/96; TEMP 98.2; O2SAT 100
== END 2023-03-22 21:38 | disposition home or self-care (01) ==
LOC: ER 14:50
DX: R51.9 Headache, unspecified (principal); I10 Essential (primary) hypertension; E11.9 Type 2 diabetes mellitus without complications; Z79.899 Other long term (current) drug therapy
CPT/HCPCS: 99285; 96374; 70450; 71045; 96375; 93005; 85025; 80048; 83690; 80076; 36415; 84484; J1200; J2765

== ENCOUNTER 2023-12-12 20:57 | Emergency (ER) | payer OTHER, MEDICAID ==
[~2023-12-12] VITALS: Ht 162.6 cm; Wt 49.9 kg
[2023-12-12 21:38] LABS: BASOPHILS # (AUTO) 0.1 K/uL (0.0-0.2); BASOPHILS % (AUTO) 0.8 % (0.0-2.0); EOSINOPHILS # (AUTO) 0.7 K/uL (0.0-0.7); EOSINOPHILS % (AUTO) 8.8 % (0.0-6.0); HEMATOCRIT 35 % (33-45); HEMOGLOBIN 12.1 g/dL (11.5-14.8); LYMPHOCYTES # (AUTO) 3.2 K/uL (0.8-4.8); LYMPHOCYTES % (AUTO) 38.6 % (20.0-44.0); MEAN CORPUSCULAR HEMOGLOBIN 33 PG (26.0-33.0); MEAN CORPUSCULAR HGB CONC 35 g/dl (31.0-36.0); MEAN CORPUSCULAR VOLUME 95 fL (82-100); MONOCYTES # (AUTO) 0.6 K/uL (0.1-1.30); MONOCYTES % (AUTO) 6.6 % (2.0-12.0); NEUTROPHILS # (AUTO) 3.8 K/uL (1.8-8.9); NEUTROPHILS % (AUTO) 45.2 % (43.0-81.0); PLATELET COUNT (AUTO) 214 K/uL (150-450); RED BLOOD CELL COUNT(AUTO) 3.68 MIL/uL (4.0-5.2); RED CELL DISTRIBUTION WIDTH 12.9 % (11.5-15.0); WHITE BLOOD COUNT (AUTO) 8.4 K/uL (4.3-11.0)
[2023-12-12 22:38] LABS: CALCIUM, SERUM 9.2 mg/dL (8.5-10.1); CREATININE 1.3 mg/dL (0.6-1.3); POTASSIUM 3.6 mmol/L (3.5-5.1)
[2023-12-12 23:51] VITALS: BP 165/71; TEMP 98.2; O2SAT 98
== END 2023-12-13 00:03 ==
LOC: ER 21:00
DX: R68.89 Other general symptoms and signs (principal); I10 Essential (primary) hypertension; I21.9 Acute myocardial infarction, unspecified; E11.9 Type 2 diabetes mellitus without complications; Z98.890 Other specified postprocedural states; Z79.899 Other long term (current) drug therapy; Z79.4 Long term (current) use of insulin; W18.39XA Other fall on same level, initial encounter; Y93.89 Activity, other specified; Y92.89 Other specified places as the place of occurrence of the external cause; Y99.8 Other external cause status
CPT/HCPCS: 36415; 71045-TC; 72170-TC; 80048-TC; 85025-TC